=== PATIENT | female | born 2000 | race Caucasian/White ===

== ENCOUNTER 2021-07-21 08:46 | Outpatient (REF) | payer BC, SELFPAY ==
[2021-07-21 11:28] LABS: MANUAL DIFF FLAG NO
[2021-07-21 11:51] LABS: Basophils Percent Auto 0.4 % (0-2); Eosinophils Absolute Auto 0.1 X10*3/uL (0.0-0.4); Eosinophils Percent Auto 0.9 % (0-4); Hematocrit 41.7 % (37.0-47.0); Hemoglobin 13.9 g/dl (12.0-16.0); Imm Gran Abs Auto 0.02 X10*3/uL (0.00-0.03); Imm Gran Pct Auto 0.4 % (0.0-0.4); Lymphocytes Percent Auto 35.5 % (20-40); Mean Corpuscular HGB Conc 33.3 g/dl (31.0-35.0); Mean Corpuscular Hemoglobin 29.3 pg (27.0-33.0); Mean Corpuscular Volume 87.8 fL (80.0-98.0); Mean Platelet Volume 8.9 fL (9.4-12.3); Monocytes Absolute Auto 0.4 X10*3/uL (0.1-1.2); Monocytes Percent Auto 6.9 % (2-11); Neutrophils Absolute Auto 3.2 x10*3/uL (2.0-8.3); Neutrophils Percent Auto 55.9 % (45-73); Platelet Count 309 X10*3/uL (160-400); Red Blood Count 4.75 X10*6/uL (4.20-5.50); Red Cell Distribution Width 12.1 % (11.0-16.0); White Blood Count 5.7 X10*3/uL (4.8-10.8)
[2021-07-21 12:05] LABS: Alanine Aminotransferase 16 U/L (0-31); Albumin Level 4.9 g/dL (3.5-5.0); Alkaline Phosphatase 83 U/L (39-117); Anion Gap 11 (12-20); Aspartate Amino Transferase 15 U/L (5-31); Bilirubin Total 0.6 mg/dL (0.0-1.0); Blood Urea Nitrogen 8 mg/dL (9-16); Calcium 10.4 mg/dL (8.4-10.2); Carbon Dioxide 24 mmol/L (22-29); Chloride 108 mmol/L (96-108); Cholesterol 200 mg/dL; Estimated Glomerular Filt Rate > 60; Glucose Fasting 95 mg/dL (60-99); HDL Cholesterol 44 mg/dL; LDL Cholesterol Calculated 139 mg/dl; Potassium 4.1 mmol/L (3.3-5.1); Sodium 139 mmol/L (135-145); Total Protein 7.6 g/dL (6.5-8.0); Triglycerides 89 mg/dL
[2021-07-21 12:23] LABS: HBc Num1 0.07 S/CO (0.00-0.79); HBsAGNum1 0.28 S/CO (0.00-0.99); Hepatitis B Core Antibody Nonreactive (Nonreactive); Hepatitis B Surface Antigen Negative (Negative)
[2021-07-21 12:26] LABS: HBS Num1 1.19 mIU/mL (0-7.99); HIV AB/AG Nonreactive (Nonreactive); HIV Num 1 0.05 S/CO (0.00-0.99); ~HepC Num1 0.13 S/CO (0.00-0.79); ~Hepatitis B Surface Antibody NONREACTIVE (Nonreactive); ~Hepatitis C Antibody Nonreactive (Nonreactive)
[2021-07-21 12:30] LABS: TSH reflex Free T4 1.93 uIU/mL (0.32-4.0)
[2021-07-21 13:46] LABS: CT PCR NOT DETECTED (Not Detect.); NG PCR NOT DETECTED (Not Detect.)
[2021-07-22 08:22] LABS: Syphilis Screen Nonreactive (Nonreactive)
== END 2021-07-21 08:47 | disposition home or self-care (01) ==
LOC: HO.WFDLDS 08:46
PROVIDERS: Visit Provider Family Medicine
DX: Z00.00 Encounter for general adult medical examination without abnormal findings (principal); Z11.3 Encounter for screening for infections with a predominantly sexual mode of transmission; Z11.4 Encounter for screening for human immunodeficiency virus [HIV]
CPT/HCPCS: 80053; 80061; 84443; 85025; 86704; 86706; 86780; 86803; 87340; 87389; 87491; 87591

== ENCOUNTER 2021-12-02 11:00 | Outpatient (REF) | payer BC, SELFPAY ==
[2021-12-04 23:51] LABS: TS Negative Control Passed; TS Panel A 0; TS Panel B 1; TS Positive Control Passed; TSpotTB Negative (Negative)
== END 2021-12-02 11:01 | disposition home or self-care (01) ==
LOC: HO.WFDLDS 11:00
PROVIDERS: Visit Provider Family Medicine
DX: Z11.1 Encounter for screening for respiratory tuberculosis (principal)
CPT/HCPCS: 36415; 86481

== ENCOUNTER → 2022-02-22 09:04 | Outpatient (BNVA) | payer SELFPAY | PROVIDERS: PCP Family Medicine | DX: Z02.1 Encounter for pre-employment examination (principal) ==

== ENCOUNTER → 2022-03-06 08:24 | Outpatient (BNVA) | payer SELFPAY | PROVIDERS: PCP Family Medicine | DX: Z02.83 Encounter for blood-alcohol and blood-drug test (principal) ==

== ENCOUNTER 2022-05-26 09:49 | Outpatient (REF) | payer BC, SELFPAY ==
[2022-05-29 09:26] LABS: HBS Num1 > 1000.00 mIU/mL (0-7.99); ~Hepatitis B Surface Antibody REACTIVE (Nonreactive)
== END 2022-05-26 09:50 | disposition home or self-care (01) ==
LOC: HO.WFDLDS 09:49
PROVIDERS: Visit Provider Family Medicine
DX: Z01.84 Encounter for antibody response examination (principal)
CPT/HCPCS: 36415; 86706

== ENCOUNTER 2022-06-05 17:02 | Outpatient (REF) | payer BC, SELFPAY ==
--- NOTE | ~2022-06-05 | XR_ITS ---
EXAMINATION: XR HIP, RIGHT CLINICAL INFORMATION: Pain in right hip COMPARISON: None TECHNIQUE: AP pelvis with 2 views of the right hip. FINDINGS: Bones and soft tissues are normal. No fracture. Alignment is anatomic. Hip joint space is maintained. XR/XR hip RT w PEL1V IMPRESSION: No acute osseous abnormality of the right hip.
== END 2022-06-05 17:03 | disposition home or self-care (01) ==
LOC: HO.XRAY 17:02
PROVIDERS: PCP Family Medicine; Visit Provider Nurse Practitioner Family
DX: M25.551 Pain in right hip (principal)
CPT/HCPCS: 73502

== ENCOUNTER 2022-09-22 08:28 | Outpatient (REF) | payer BC, SELFPAY ==
[2022-09-22 11:51] LABS: Appearance Urine Clear; Color Urine Yellow; Glucose Urine UA Negative (Negative); Leukocyte Esterase Urine Negative (Negative); Nitrite Urine Negative (Negative); PH 7.5 (5.0-9.0); Specific Gravity - Urine <= 1.005 (1.005-1.025); Urine Blood Negative (Negative); Urine Ketones Negative (Negative); Urine Protein Negative (Neg-Trace)
[2022-09-22 12:25] LABS: Alanine Aminotransferase 64 U/L (0-31); Albumin Level 4.8 g/dL (3.5-5.0); Alkaline Phosphatase 80 U/L (39-117); Anion Gap 12 (12-20); Aspartate Amino Transferase 41 U/L (5-31); Bilirubin Total 0.7 mg/dL (0.0-1.0); Blood Urea Nitrogen 15 mg/dL (9-16); Calcium 9.9 mg/dL (8.4-10.2); Carbon Dioxide 27 mmol/L (22-29); Chloride 107 mmol/L (96-108); Cholesterol 200 mg/dL; Estimated Glomerular Filt Rate > 60; Glucose Fasting 81 mg/dL (60-99); HDL Cholesterol 54 mg/dL; LDL Cholesterol Calculated 133 mg/dl; Potassium 4.2 mmol/L (3.3-5.1); Sodium 142 mmol/L (135-145); Total Protein 7.2 g/dL (6.5-8.0); Triglycerides 65 mg/dL
[2022-09-22 12:27] LABS: TSH reflex Free T4 1.76 uIU/mL (0.32-4.0)
== END 2022-09-22 08:29 | disposition home or self-care (01) ==
LOC: HO.WFDLDS 08:28
PROVIDERS: Visit Provider Family Medicine
DX: Z00.00 Encounter for general adult medical examination without abnormal findings (principal)
CPT/HCPCS: 36415; 80053; 80061; 81003; 84443

== ENCOUNTER 2022-11-24 09:09 | Outpatient (REF) | payer BC, SELFPAY ==
[2022-11-24 12:47] LABS: Alanine Aminotransferase 30 U/L (0-31); Alkaline Phosphatase 76 U/L (39-117); Anion Gap 13 (12-20); Aspartate Amino Transferase 20 U/L (5-31); Blood Urea Nitrogen 12 mg/dL (9-16); Calcium 10.1 mg/dL (8.4-10.2); Carbon Dioxide 25 mmol/L (22-29); Chloride 105 mmol/L (96-108); Estimated Glomerular Filt Rate > 60; Gamma Glutamyl Transpeptidase 18 U/L (7-33); Glucose Random 84 mg/dL (60-115); Potassium 4.5 mmol/L (3.3-5.1); Sodium 138 mmol/L (135-145); Total Protein 7.5 g/dL (6.5-8.0)
[2022-11-24 12:53] LABS: HBS Num1 905.51 mIU/mL (0-7.99); HBc Num1 0.08 S/CO (0.00-0.79); HBsAGNum1 0.41 S/CO (0.00-0.99); Hepatitis B Core Antibody Nonreactive (Nonreactive); Hepatitis B Surface Antigen Negative (Negative); ~HepC Num1 0.13 S/CO (0.00-0.79); ~Hepatitis B Surface Antibody REACTIVE (Nonreactive); ~Hepatitis C Antibody Nonreactive (Nonreactive)
== END 2022-11-24 09:10 | disposition home or self-care (01) ==
LOC: HO.WFDLDS 09:09
PROVIDERS: Visit Provider Family Medicine
DX: R74.8 Abnormal levels of other serum enzymes (principal); Z11.3 Encounter for screening for infections with a predominantly sexual mode of transmission
CPT/HCPCS: 36415; 80053; 82977; 86704; 86706; 86803; 87340

== ENCOUNTER 2022-11-29 12:51 | Outpatient (REF) | payer BC, SELFPAY ==
[2022-11-29 13:59] LABS: MANUAL DIFF FLAG NO
[2022-11-29 14:27] LABS: Basophils Percent Auto 0.5 % (0-2); Eosinophils Absolute Auto 0.1 X10*3/uL (0.0-0.4); Eosinophils Percent Auto 0.8 % (0-4); Hematocrit 39.4 % (37.0-47.0); Hemoglobin 13.1 g/dl (12.0-16.0); Imm Gran Abs Auto 0.02 X10*3/uL (0.00-0.03); Imm Gran Pct Auto 0.3 % (0.0-0.4); Lymphocytes Absolute Auto 2.2 X10*3/uL (1.2-4.9); Lymphocytes Percent Auto 28.8 % (20-40); Mean Corpuscular HGB Conc 33.2 g/dl (31.0-35.0); Mean Corpuscular Hemoglobin 29.1 pg (27.0-33.0); Mean Corpuscular Volume 87.6 fL (80.0-98.0); Mean Platelet Volume 8.7 fL (9.4-12.3); Monocytes Absolute Auto 0.5 X10*3/uL (0.1-1.2); Monocytes Percent Auto 7.1 % (2-11); Neutrophils Absolute Auto 4.8 x10*3/uL (2.0-8.3); Neutrophils Percent Auto 62.5 % (45-73); Platelet Count 334 X10*3/uL (160-400); Red Cell Distribution Width 12.5 % (11.0-16.0); White Blood Count 7.6 X10*3/uL (4.8-10.8)
== END 2022-11-29 12:52 | disposition home or self-care (01) ==
LOC: HO.WFDLDS 12:51
PROVIDERS: Visit Provider Nurse Practitioner Family
DX: R42 Dizziness and giddiness (principal)
CPT/HCPCS: 36415; 85025

== ENCOUNTER → 2023-02-14 12:50 | Outpatient (REF) | payer BC, SELFPAY ==
--- NOTE | 2023-02-14 12:53 | HM_ITS ---
* Total monitoring time 2 days. * Underlying rhythm is sinus. Average ventricular rate 74/Min. Range 46 to 141/Min. * Very rare supraventricular and ventricular ectopy. * Lightheadedness, shakiness, shortness of breath in diary associated with sinus rhythm. MTDD
== END ==
LOC: HO.CARD 12:50
PROVIDERS: PCP Family Medicine; Visit Provider Family Medicine
DX: R55 Syncope and collapse (principal); R42 Dizziness and giddiness
CPT/HCPCS: 93225

== ENCOUNTER → 2023-02-14 12:53 | Outpatient (BNV) | payer BC, SELFPAY | PROVIDERS: PCP Family Medicine; Visit Provider Internal Medicine | DX: I47.1 Supraventricular tachycardia (principal) | CPT/HCPCS: 93227 ==

== ENCOUNTER 2023-02-23 10:24 | Outpatient (AMB) | payer BC, SELFPAY ==
--- NOTE | 2023-02-23 10:29 | MHC.PC.OV ---
Vital Signs 02/23/23 10:30 02/23/23 11:01 02/23/23 11:01 02/23/23 11:02 Height 5 ft 3 in Weight 130 lb BMI 23.0 BP 98/70 102/68 102/78 98/62 Blood Pressure Location Rt brachial Rt brachial Rt brachial Rt brachial Position Sitting Standing Sitting Supine Respiration 14 Pulse 96 100 86 81 Pulse Source Pulse Oximeter Pulse Oximeter Pulse Oximeter Pulse Oximeter Temp 98.9 F Temp Source Temporal Artery Scan Pulse Oximetry (%) 98 Oxygen Delivery Method Room Air Intake Visit Reasons: f/u syncope/dizziness Intake Note: Patient is following up for a previous syncope episode. Patient states she is concerned about her blood pressure being lower than usual and bilateral feet being tingly intermittently. The tingling worsens when patient is not moving- such as sitting, laying down and sleeping. 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 Required: No Accompanied by: Self / Same As Patient Allergies Seasonal Allergies Allergy (Mild, Verified 02/23/23 10:36) Unknown cats Allergy (Mild, Uncoded 01/26/23 08:58) itchy dogs Allergy (Mild, Uncoded 01/26/23 08:58) Unknown horses Allergy (Mild, Uncoded 01/26/23 08:58) Unknown tree pollen Allergy (Mild, Uncoded 01/26/23 08:58) seasonal allergies Tobacco use date assessed: 01/26/23 Dental Screening Dental Screen Date: 02/23/23 Did you have a dental visit in the last 12 months?: Yes Did you have a dental problem in the last 6 months where you did not have access to dental care?: No Was dental information given to patient?: Patient has dentist HPI f/u syncope/dizziness HPI Details 22 y/o female presents to f/u syncope/dizziness. Recent CBC was fine. She had scored high for anxiety so she had been given hydroxyzine. She reports this has helped a bit. She reports ongoing lightheadedness. She reports shortness of breath on exertion and notes that when she gets up in the morning she experiences tingling on her legs. She reports she had a holter monitor 02/14/23, which was normal. 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 Ed Edwards, Germaine Ingram, Olivier Prather and colleagues, with an educational fernando from [employer]. Review of Systems Const Denies chills, Denies fatigue, Denies fever(s), Denies headache(s) and Denies weakness ENT Denies dizziness and Denies headache(s) Card Denies chest pain, Denies lightheadedness, Denies dyspnea and Denies other (Palpitations) Resp Denies cough, Denies dyspnea, Denies wheezing and Denies other ( shortness of breath) Musc Denies numbness and Denies tingling Neuro Denies dizziness, Denies headache(s), Denies numbness, Denies tingling, Denies paresthesias and Denies weakness Psych Denies anxiety and Denies depression Endo Denies fatigue Aller/Immun Denies wheezing Physical exam (Primary Care) Vital Signs: Last Vital Signs Temp 98.9 F 02/23/23 10:30 Pulse 96 02/23/23 10:30 Resp 14 02/23/23 10:30 BP 98/70 02/23/23 10:30 Pulse Ox 98 02/23/23 10:30 Oxygen Delivery Method Room Air 02/23/23 10:30 BMI result Body Mass Index 23.0 Tobacco/Smoking Status: Tobacco use Status Tobacco use date assessed 01/26/23 02/23/23 10:37 Patient Tobacco Use Status Never used Tobacco 02/23/23 10:37 Tobacco use type 06/21/21 16:42 e-Cigarette/Vaping Use Never Used 02/23/23 10:37 Thrive Assessment: Date of Thrive Assessment Date Thrive assessed 09/18/22 02/23/23 10:37 Const General: no acute distress and well developed Nutritional Appearance: well nourished Orientation/consciousness: patient oriented x3 HENMT Head: Yes normocephalic and Yes atraumatic Eyes General: appearance normal, both eyes and all related structures Pupils: Equal, round and reactive pupils present EOM: EOMs intact bilaterally Resp Effort & Inspection: normal respiratory effort Auscultation: clear to auscultation bilaterally Cardio Rate: regular rate Rhythm: regular rhythm Heart sounds: S1 normal heart sound present, S2 normal heart sound present, no gallops, no murmurs and no rubs Neuro General: patient oriented x3 and gait normal Cranial nerves: Yes Equal, round and reactive pupils present Psych Affect: normal affect Assessment and Plan Assessment & Plan (1) Syncope: Code(s): R55 - Syncope and collapse Plan: Prior syncopal event and still has presyncopal symptoms EKG was normal as was a Holter monitor test Blood pressure has been fairly low and today 98/70 Orthostatic blood pressures and heart rates were negative for orthostasis however. As discussed in prior visit, this appears to be vasovagal response associated with standing and attention, watching medical procedures such as lumbar puncture and micturition defecation. Reassured patient though she is still concerned. Will refer to Cardiology Advised she continue good hydration and salt/sodium intake to avoid any contributing hypotension She will go to the ED or call/return to office if symptoms worsen or she has any new concerning symptoms. (2) Dizziness: Code(s): R42 - Dizziness and giddiness Plan: As above (3) Screening for tuberculosis: Code(s): Z11.1 - Encounter for screening for respiratory tuberculosis Plan: Patient needs screening for tuberculosis for school T spot ordered Orders: Orders T Spot TB Today Z11.1 - Encounter for screening for respiratory tuberculosis Referrals Cardiology Referral R55 - Syncope and collapse Coding Level of Care Code Est Pt Level 3 (83004) Diagnoses Syncope R55 Dizziness R42 Screening for tuberculosis Z11.1
[2023-02-23 10:30] VITALS: BP 98/70; PULSE 96; RESP 14; TEMP 37.2; O2SAT 98; BMI 23.0
[2023-02-23 11:01] VITALS: BP 102/68; BP 102/78; PULSE 100; PULSE 86
[2023-02-23 11:02] VITALS: BP 98/62; PULSE 81
== END 2023-02-23 11:27 | disposition home or self-care (01) ==
PROVIDERS: PCP Family Medicine; Visit Provider Family Medicine
DX: R55 Syncope and collapse (principal); R42 Dizziness and giddiness; Z11.1 Encounter for screening for respiratory tuberculosis
CPT/HCPCS: 99213

== ENCOUNTER 2023-02-23 11:17 | Outpatient (REF) | payer BC, SELFPAY ==
[2023-02-26 15:34] LABS: TS Negative Control Passed; TS Panel A 0; TS Panel B 4; TS Positive Control Passed; TSpotTB Negative (Negative)
== END 2023-02-23 11:18 | disposition home or self-care (01) ==
LOC: HO.WFDLDS 11:17
PROVIDERS: Visit Provider Family Medicine
DX: Z11.1 Encounter for screening for respiratory tuberculosis (principal)
CPT/HCPCS: 36415; 86481

== ENCOUNTER 2023-09-03 09:09 | Outpatient (AMB) | payer BC, SELFPAY ==
--- NOTE | 2023-09-03 09:30 | MHC.OFFVIS ---
Intake Vital Signs 09/03/23 09:31 09/03/23 09:47 09/03/23 09:49 Height 5 ft 3 in Weight 132 lb 4.438 oz BMI 23.4 BP 130/74 123/77 138/73 Blood Pressure Location Lt brachial Lt brachial Lt brachial Position Supine Sitting Standing Pulse 97 105 H 113 H Intake Visit Reasons: NPV/Syncope and collapse/T. Mary Intake Note: New patient dx syncope feeling better still has some dizziness when doing stairs Curriculum Developer Required: No Allergies Seasonal Allergies Allergy (Mild, Verified 02/23/23 10:36) Unknown cats Allergy (Mild, Uncoded 01/26/23 08:58) itchy dogs Allergy (Mild, Uncoded 01/26/23 08:58) Unknown horses Allergy (Mild, Uncoded 01/26/23 08:58) Unknown tree pollen Allergy (Mild, Uncoded 01/26/23 08:58) seasonal allergies Medication List - Last Reconciled 09/03/23 by Asif Grimes MD albuterol sulfate 90 mcg/actuation 0 mcg inhalation fexofenadine (Wendie Allergy) 180 mg PO DAILY fluticasone propionate 100 mcg/actuation (Flovent Diskus) 1 inh inhalation BID hydroxyzine HCl 25 mg PO BID PRN 30 days triamcinolone acetonide (Nasacort) 2 sprays intranasal DAILY HPI HPI Comments History of Present Illness Details Thank you for referring Nolvia in cardiology consultation today for evaluation for syncope. 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 Patient said in January she had a syncopal episode while she was in turning in the operating room. There was nothing going on, she was standing and she suddenly felt lightheaded wobbly in her legs and then had doc vision and then she passed out. She was told that she was very pale. She was in the supine position and the associated staff at that time raised her legs and she felt better. She subsequently was brought to the break room and was given orange juice and she started feeling better. She did feel lightheaded for about half an hour after that. However since then she continues to have symptoms of orthostatic lightheadedness and feels wobbly in her legs and usually sits down before she has any fainting episode. During her syncopal episode she had also felt extremely warm. She has not had any full syncopal episodes since then. She had a Holter monitor at that time which was within normal limits. Since then she has been very anxious about these symptoms and is concerned and wants further evaluation. She also says that she has normally a very active person needs to play soccer for the school and more recently in last 2 years she has been getting increasing exertional shortness of breath climbing a flight of stairs. She says she had COVID in 2019 and then again in 2020 which was much more severe. Since then she has developed some allergy issues as well as exertional shortness of breath. No other cardiac workup has been done. No family history. [facility] Family History Father No problems noted. Mother No problems noted. 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 [employer] Current occupational exposures/hazards: No Cognitive needs: No Hearing needs: No Vision needs: No Review of Systems Const Denies chills, Denies daytime sleepiness, Denies fatigue, Denies fever(s), Denies frequent falls, Denies poor appetite, Denies snoring, Denies stops breathing during sleep, Denies weakness, Denies weight gain and Denies weight loss Eyes Denies loss of vision ENT Denies dizziness and Denies hearing loss Card Denies chest pain, Denies claudication, Denies leg edema, Denies lightheadedness, Denies palpitations, Denies dyspnea, Denies dyspnea on exertion and Denies orthopnea Resp Denies cough, Denies excessive phlegm production, Denies dyspnea, Denies dyspnea on exertion, Denies snoring and Denies wheezing GI Denies abdominal pain, Denies hematochezia, Denies change in bowel habits, Denies nausea and Denies vomiting Denies urinary frequency and Denies dysuria Musc Denies arthralgias, Denies muscle weakness, Denies numbness and Denies other (frequent falls) Skin/Breast Denies nail changes and Denies rash Neuro Denies Abnormal speech present, Denies dizziness, Denies frequent falls, Denies loss of vision, Denies memory loss, Denies numbness and Denies weakness Psych Denies depression and Denies memory loss Endo Denies fatigue and Denies palpitations Nilesh/Lymph Reports easy bruising and Reports other (anemia) Aller/Immun Denies wheezing Physical Exam Vital Signs: Last Vital Signs Pulse 113 H 09/03/23 09:49 BP 138/73 09/03/23 09:49 BMI result Body Mass Index 23.4 Const General: cooperative, comfortable, no acute distress, well developed, alert, awake, Physically active and anxious Nutritional Appearance: well nourished and thin Orientation/consciousness: patient oriented x3 Limitations: no limitations HEENT Head: Yes normocephalic and Yes atraumatic Neck Neck: Yes trachea midline, Yes supple and Yes no JVD Resp Effort & Inspection: normal respiratory effort Auscultation: clear to auscultation bilaterally Cardio Jugular venous distension: no JVD Palpation: normal PMI Rate: regular rate Rhythm: regular rhythm Heart sounds: S1 normal heart sound present, S2 normal heart sound present, no click, no gallops and no murmurs GI Percussion: Yes normal to percussion Skin General skin exam: no rashes or lesions noted Neuro General: patient oriented x3 and no focal motor deficits Speech: No Abnormal speech present Extrem General: Yes no clubbing, cyanosis or edema Psych Appearance: grossly normal Affect: Anxious affect present Office Procedures EKG Details: EKG shows normal sinus rhythm with normal EKG at 100 beats per minute with normal axis and normal intervals [id number], Complete Assessment & Plan Assessment & Plan (1) Syncope: Code(s): R55 - Syncope and collapse Plan: Syncopal episode in January and since then she continues to have symptoms of lightheadedness which she mitigate her syncopal episodes by sitting down right away. She understands the pathophysiology of syncope. To possible mechanisms, could be postural orthostatic tachycardia syndrome related to autonomic dysfunction and/or vasovagal syncope. On today's exam there is some evidence of orthostatic tachycardia although this could be also driven by her anxious state. At this time I have advised her to continue to monitor for blood pressure and heart rate with her smart watch when she has these episodes. Advised to monitor and maintain a record of her blood pressure. Advised to increase hydration more liberally and also add salt intake such as liquid IV solution to prevent these episodes. Mechanism of both POTS as well as vasovagal syncope were discussed. Given her symptoms of exertional shortness of breath would like to evaluate for cardiac structure and function. Will obtain an echocardiogram. Will also suggest a head-up tilt-table test to further guide therapy for her symptoms. We discussed about orthostatic precautions which she understands well. Will follow with her in 4 weeks time Coding Level of Care Code New Pt Level 4 (15430) Diagnoses Syncope R55 CPT Codes EKG - CPT: 39545-[id number], Complete ([id number])
[2023-09-03 09:31] VITALS: BP 130/74; PULSE 97; BMI 23.4
[2023-09-03 09:47] VITALS: BP 123/77; PULSE 105
[2023-09-03 09:49] VITALS: BP 138/73; PULSE 113
== END 2023-09-03 10:12 | disposition home or self-care (01) ==
PROVIDERS: PCP Family Medicine; Visit Provider Internal Medicine Cardiovascular Disease
DX: R55 Syncope and collapse (principal)
CPT/HCPCS: 93010; 99204

== ENCOUNTER → 2023-09-03 09:09 | Outpatient (BNVA) | payer BC, SELFPAY | PROVIDERS: PCP Family Medicine; Visit Provider Internal Medicine Cardiovascular Disease | DX: R55 Syncope and collapse (principal) | CPT/HCPCS: 93005 ==

== ENCOUNTER 2023-09-04 10:26 | Outpatient (AMB) | payer BC, SELFPAY ==
--- NOTE | 2023-09-04 10:31 | AM.OFFWIN_ITS ---
Intake Vital Signs 09/04/23 10:34 Height 5 ft 3 in Weight 136 lb BMI 24.1 BP 90/70 Blood Pressure Location Rt brachial Position Sitting Pulse 114 H Pulse Source Pulse Oximeter Pulse Oximetry (%) 98 Oxygen Delivery Method Room Air Intake Visit Reasons: congestion Intake Note: Patient is here today for congestion, fever 102 this morning, SOB, post nasal drip, coughing, chills, body aches, sore throats and sinus pressure. Symptoms started 09/01/23 and has gotten worse with time. OTc did not help. Home Covid test neg. 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 Horizontal: Not Required per policy Accompanied by: Self / Same As Patient Allergies Seasonal Allergies Allergy (Mild, Verified 09/04/23 10:50) Unknown cats Allergy (Mild, Uncoded 09/04/23 10:34) itchy dogs Allergy (Mild, Uncoded 09/04/23 10:34) Unknown horses Allergy (Mild, Uncoded 09/04/23 10:34) Unknown tree pollen Allergy (Mild, Uncoded 09/04/23 10:34) seasonal allergies Medication List - Last Reconciled 09/04/23 by Disha Clay, [facility] albuterol sulfate 90 mcg/actuation 0 mcg inhalation fexofenadine (Wendie Allergy) 180 mg PO DAILY fluticasone propionate 100 mcg/actuation (Flovent Diskus) 1 inh inhalation BID triamcinolone acetonide (Nasacort) 2 sprays intranasal DAILY Do you need a note to return to daycare/school/sports/work: Yes HPI HPI Comments History of Present Illness Details Flu like sx started Sunday Worse since onset fever, chills, scratchy throat, coughing Home COVID test negative Sick exposures at work and school UTD on vaccines Using OTC cold and flu decongestant with short lived relief PFSH Family History Father No problems noted. Mother No problems noted. 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 [employer] Current occupational exposures/hazards: No Cognitive needs: No Hearing needs: No Vision needs: No Review of Systems Const All systems reviewed & are unremarkable except as noted in HPI and below Physical Exam Vital Signs: Last Vital Signs Pulse 114 H 09/04/23 10:34 BP 90/70 09/04/23 10:34 Pulse Ox 98 09/04/23 10:34 Oxygen Delivery Method Room Air 09/04/23 10:34 BMI result Body Mass Index 24.1 Const Other: Mildly ill-appearing but in no acute distress TM intact bilat, congestion noted and left TM without erythema Nares with clear discharge bilat, polyp noted on right side, turbinates erythematous and edematous bilat. No sinus tenderness with palpation Pharynx clear, shotty AC adenopathy bilat Tachycardic Lung sounds clear to auscultation bilat Assessment & Plan Assessment & Plan (1) Flu-like symptoms: Code(s): R68.89 - Other general symptoms and signs Plan: . Plan Symptoms appear to be flu. Viral swab obtained today and confirm Flu A. Out of work and school note given with return to work on to 09/10/2023. She should follow the current CDC guidelines. [id number] medications to help with symptom relief. Supportive care. Total time spent caring for the patient today was 30 minutes. This includes time spent before the visit reviewing the chart, time spent during the visit, and time spent after the visit on documentation This note is constructed using voice recognition software. While every effort has been made to ensure accuracy in administrative associate, still errors may have been included Sometimes, these errors may affect the content or meaning of the given sentence . Orders: Orders SARS-CoV2/FLU/RSV Today R68.89 - Other general symptoms and signs Medications: New benzonatate 100 mg PO TID 10 days PRN 30 caps 1RF cough oseltamivir (Tamiflu) 75 mg PO Q12H 10 caps 0RF 5 days Patient Instructions: Influenza (flu) is an infection in the lungs and breathing passages. It is caused by the influenza virus. There are different strains, or types, of the flu virus from year to year. Unlike the common cold, the flu comes on suddenly and the symptoms can be more severe. These symptoms include a cough, congestion, fever, chills, fatigue, aches, and pains. These symptoms may last for a few weeks. Although the flu can make you feel very sick, it usually doesn't cause serious health problems. Home treatment is usually all you need for flu symptoms. But your doctor may prescribe antiviral medicine to prevent other health problems, such as pneumonia, from developing. The risk of other health problems from the flu is highest for young children (under 5), older adults (over 65), women, people with long-term health conditions, people who live in nursing homes or long-term care centres, and indigenous peoples. How can you care for yourself at home? Get plenty of rest. Drink plenty of fluids. If you have to limit fluids because of a health problem, talk with your doctor before you increase the amount of fluids you drink. Take an avgv-akc-xqnqgsc pain medicine if needed, such as acetaminophen (Tylenol), ibuprofen (Advil, Motrin), or naproxen (Aleve), to relieve fever, headache, and muscle aches. Read and follow all instructions on the label. No one younger than 18 should take aspirin. It has been linked to Edgar syndrome, a serious illness. Take any prescribed medicine exactly as directed. Do not smoke. Smoking can make the flu worse. If you need help quitting, talk to your doctor about stop-smoking programs and medicines. These can increase your chances of quitting for good. If the skin around your nose and lips becomes sore, put some petroleum jelly (such as Vaseline) on the area. To ease coughing: Suck on cough drops or plain, hard candy. Try an kazc-vxc-vnwwmrx cough or cold medicine. Read and follow all instructions on the label. Raise your head at night with an extra pillow. This may help you rest if coughing keeps you awake. To avoid spreading the flu Wash your hands regularly, and keep your hands away from your face. Stay home from school, work, and other public places until you are feeling better and your fever has been gone for at least 24 hours. The fever needs to have gone away on its own without the help of medicine. Ask people living with you to talk to their doctors about preventing the flu. They may get antiviral medicine to keep from getting the flu from you. To prevent the flu in the future, get the flu vaccine every fall. Encourage people living with you to get the vaccine. Cover your mouth when you cough or sneeze. If you can, cough or sneeze into the bend of your elbow, not your hands. When should you call for help? Call 911 anytime you think you may need emergency care. For example, call if: You have severe trouble breathing. You have a seizure. Call your doctor or nurse advice line now or seek immediate medical care if: You have trouble breathing. You have a fever with a stiff neck or a severe headache. You have pain or pressure in your chest or belly. You have a fever or cough that returns after getting better. You feel very sleepy, dizzy, or confused. You are not urinating. You have severe muscle pain. You have severe weakness, or you are unsteady. You have medical conditions that are getting worse Watch closely for changes in your health, and be sure to contact your doctor or nurse advice line if: You do not get better as expected. You are having a problem with your medicine. Coding Level of Care Code Est Pt Level 4 (79152) Diagnoses Flu-like symptoms R68.89
[2023-09-04 10:34] VITALS: BP 90/70; PULSE 114; O2SAT 98; BMI 24.1
== END 2023-09-04 11:04 | disposition home or self-care (01) ==
PROVIDERS: PCP Family Medicine; Visit Provider Nurse Practitioner Family
DX: R68.89 Other general symptoms and signs (principal)
CPT/HCPCS: 99214

== ENCOUNTER 2023-09-04 14:47 | Outpatient (REF) | payer BC, SELFPAY ==
[2023-09-04 15:36] LABS: Influenza A PCR POSITIVE (Negative); Influenza B PCR NEGATIVE (Negative); Resp Syncy Virus RNA Qual PCR NEGATIVE (Negative); SARS COV2 PCR INHOUSE NEGATIVE (Negative)
== END 2023-09-04 14:48 | disposition home or self-care (01) ==
LOC: HO.LNP 14:47
PROVIDERS: Visit Provider Nurse Practitioner Family
DX: Z11.52 Encounter for screening for COVID-19 (principal); Z20.822 Contact with and (suspected) exposure to COVID-19; R68.89 Other general symptoms and signs
CPT/HCPCS: 0241U

== ENCOUNTER → 2023-10-08 08:03 | Outpatient (REF) | payer BC, SELFPAY ==
--- NOTE | 2023-10-08 08:05 | CA_ITS ---
Transthoracic Echocardiogram Patient (Last, First, Middle): Nolvia Parmar, Gender: Female Date of : 2000 Age: 23 Procedure Date: 10/08/2023 Procedure Type: Transthoracic Echocardiogram Location: OP Height: 162.56 cm Weight: 61.24 kg BSA: 1.66 m2 Heart Rate: bpm BP: 110 / 68 mmHg Electrical Discharge Machine Operator: TATY Referring MD: Asif Grimes MD Cook Apprentice: Asif Grimes MD Symptoms: R55 - Syncope and collapse Study Quality: Adequate with contrast ECG Rhythm: Sinus Conclusions: - 1. Normal LV systolic function with LVEF of 65-70% with normal diastolic filling pattern 2. Normal cardiac valvular Doppler 3. No gross pericardial effusion Findings Procedure Information Contrast agent, definity, is being given per protocol without apparent complications. Left Ventricle Normal left ventricular size, thickness, and systolic function. The visually estimated ejection fraction is between 65-70%. Spectral Doppler is indicative of a normal filling pattern. Right Ventricle Normal right ventricular cavity size and systolic function. Atria Both atria are normal in size. Interatrial shunt cannot be excluded. Aortic Valve Normal aortic valve structure and function. There is no aortic valve stenosis. There is no aortic valve regurgitation. Mitral Valve Normal mitral valve structure and function. There is no mitral valve regurgitation. There is no mitral valve stenosis. Pulmonic Valve The pulmonic valve is likely normal. Tricuspid Valve Normal tricuspid valve structure. There is trace tricuspid valve regurgitation. Great Vessels All visible segments of the aorta are normal in size. The pulmonary artery was not well visualized. Venous The inferior vena cava is normal in size and collapses greater than 50% with inspiration. Pericardium/Pleural There is no evidence of pericardial effusion. Prior Study Comparison No prior study available for comparison. Measurements 2D Linear Measurements IVSd: 0.63 0.6-0.9/0.6-1.0 cm LVIDd: 4.37 3.9-5.3/4.2-5.9 cm LVIDd Index: 2.63 2.4-3.2/2.2-3.1 cm/m2 LVIDs: 2.93 2.0-3.6 cm LVPWd: 0.83 0.7-1.1 cm LA Diam: 2.50 2.7-3.8/3.0-4.0 cm LAIDs Index: 1.51 1.5-2.3 cm/m2 LV Mass: 118.65 67-162/88-224 g LV Mass Index: 71.48 43-95/49-115 g/m2 LVOT Diam: 1.80 3.0+(-)1.3 cm 2D Systolic Function EF 4C: 67.40 >55% EF 2C: 67.60 >55% EF BiP: 67.10 >55% Mitral Valve MV Pk E: 0.99 MV PK A: 0.62 MV Decel Time: 197.00 E/A: 1.60 E'Lateral: 16.50 E'Medial: 11.00 E/E' Med: 9.00 E/E' Lat: 6.00 PHT: 58.00 MVA PHT: 3.79 Decel [place]: 5.01 Aortic Valve AoV Pk Kaden: 1.18 AoV Mn Kaden: 0.84 AoV VTI: 0.28 AoV Pk Grad: 6.00 Aov Mn Grad: 3.00 JASON Cont.VTI: 1.88 LVOT LVOT Pk Kaden: 0.88 LVOT Mn Kaden: 0.66 LVOT VTI: 0.21 LVOT Pk Grad: 3.00 LVOT Mn Grad: 2.00 LVOT Diam: 1.80 LVOT Area: 2.54 Diastolic Function MV Pk E: 0.99 MV Pk A: 0.62 E/A: 1.60 E'Medial: 11.00 E/E' Med: 9.00 E' Laterial: 16.50 E/E' Lat: 6.00 Right Ventricle TAPSE (mm): 23.00 TVS' Kaden: 12.20 Tricuspid Valve RA Press: 3.00 Great Vessels Aorta Sinus of Valsalva: 2.59 2.0-3.[address] [place]: 1.58 1.7-3.4 cm Ao Asc: 2.10 2.1-3.4 cm Ao Arch: 2.40 Updated in Other Vendor System with Status of Final Asif Grimes MD electronically signed on 10/08/2023 1:04:27 PM with status of Final
== END ==
LOC: HO.CARD 08:03
PROVIDERS: PCP Family Medicine; Visit Provider Internal Medicine Cardiovascular Disease
DX: R55 Syncope and collapse (principal); R06.02 Shortness of breath
CPT/HCPCS: 93306; Q9957

== ENCOUNTER → 2023-10-08 08:05 | Outpatient (BNV) | payer BC, SELFPAY | PROVIDERS: PCP Family Medicine; Visit Provider Internal Medicine Cardiovascular Disease | DX: R06.02 Shortness of breath (principal); R55 Syncope and collapse | CPT/HCPCS: 93306 ==

== ENCOUNTER 2023-10-17 07:59 | Outpatient (AMB) | payer BC, SELFPAY ==
--- NOTE | 2023-10-17 08:02 | MHC.PC.OV ---
Vital Signs 10/17/23 08:08 Height 5 ft 3 in Weight 137 lb BMI 24.3 BP 102/54 L Blood Pressure Location Rt brachial Position Sitting Respiration 12 Pulse 88 Pulse Source Pulse Oximeter Pulse Oximetry (%) 98 Oxygen Delivery Method Room Air Intake Visit Reasons: CPE Intake Note: Patient is here for a physical. Patient is requesting a copy of her immunizations and todays physical for school and work. Ibm Bpm Developer Required: No Accompanied by: Self / Same As Patient Allergies Seasonal Allergies Allergy (Mild, Verified 10/17/23 08:29) Unknown codeine Adverse Reaction (Mild, Verified 10/17/23 08:30) Dizziness cats Allergy (Mild, Uncoded 10/17/23 08:12) itchy dogs Allergy (Mild, Uncoded 10/17/23 08:12) Unknown horses Allergy (Mild, Uncoded 10/17/23 08:12) Unknown tree pollen Allergy (Mild, Uncoded 10/17/23 08:12) seasonal allergies Medication List - Last Reconciled 10/17/23 by Disha Clay, [facility]- albuterol sulfate 90 mcg/actuation 0 mcg inhalation fexofenadine (Wendie Allergy) 180 mg PO DAILY fluticasone propionate 100 mcg/actuation (Flovent Diskus) 1 inh inhalation BID Tobacco use date assessed: 10/17/23 Dental Screening Dental Screen Date: 10/17/23 Did you have a dental visit in the last 12 months?: Yes Did you have a dental problem in the last 6 months where you did not have access to dental care?: No Was dental information given to patient?: Patient has dentist HPI HPI Comments History of Present Illness Details 23-year-old female with MDD, generalized anxiety disorder, allergic rhinitis w/ recurrent sinusitis, eczema dermatitis, constipation Social: 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 [place] at [employer] [place] Surgery wisdom teeth removal Family history: Maternal grandmother Graves disease, Maternal Grandfather: HLD, maternal aunt thyroid disease, mother with hypertension, paternal grandfather colon cancer + parkinsons disease siblings: 1 younger, alive and well. Specialists Cardiology Allergy and immunology [facility] maintenance Echocardiogram 10/08/2023 within normal limits Holter within normal limits Labs 11/29/2022 normal CBC, labs 11/24/2022 normal CMP, normal TSH and lipid panel 08/2022 Vaccine UTD PAP 2022 WNL Eyes: overdue for exam. Wears glasses for distance. Dental: routine f/u, no issues. Skin: warts on fingers, resolving. No other issues. Eczema only during winter. Used cream in past. Here today for CPE. Cards - currently followed for syncope. Tilt table ordered, scheduled November 2023 w/ Cards f/u to discuss. Feeling dizzy and off balanced, seldom. More so at work and when pushing things or going up and down the stairs. Feels out of breath. Sits down and then feels fine. Allergy/Immune - manages asthma & allergies. Taking meds as directed. Inhalers effective. Getting allergy shot q week. Recurrent sinusitis is resolved w/ treatment. Constitutional: Denies fever. Skin: Denies rash. Eye: Denies eye pain. ENMT: Denies sore throat and nasal congestion. Respiratory: Denies shortness of breath and cough. Gastrointestinal: Denies nausea, vomiting or abdominal pain. Cardiovascular: Denies chest pain Genitourinary: Denies dysuria. Musculoskeletal: Denies back pain and extremity pain. Neurologic: Denies headaches, confusion, and weakness. Psychiatric: Denies suicidal thoughts and substance abuse. Allergy/ Immunologic: Denies impaired immunity. General: Well developed, well nourished, in no acute distress. Appears stated age. Head: Normocephalic, atraumatic. Eyes: Pupils are equal, round and reactive to light and accommodation. Conjunctivae are clear. Vision grossly normal. Ears: TMs clear AU, EACS WNL Nose: Patent, without discharge. Mouth: There are no ulcers or lesions noted. No inflammation, no post nasal drip, no plaques nor exudates. Neck: Supple, no adenopathy or thyromegaly. Lungs: Clear to auscultation bilaterally. No rales, rhonchi or wheeze noted. Good air flow in all serrano. Heart: Regular rate and rhythm. No murmurs, click, rubs or gallops are noted. Abdomen: Bowel sounds present in all quadrants. The abdomen is soft, nontender, with no masses or organomegaly noted. No hernias are noted. Musculoskeletal: Joints are nontender, without swelling, redness, or effusions. Range of motion is observed to be normal. Pulses: Peripheral pulses are equal and palpable bilaterally. Extremities: No clubbing, cyanosis nor edema is noted. Neurologic: Gait and station normal. Cranial Nerves 2-12 intact. Motor strength grossly symmetrical and intact. No sensory loss. Balance normal. Skin: No rashes, ulcers, or lesions noted. Turgor is good. Skin color is good. Hair and nails are without abnormalities. Psych: Normal eye contact, affect and mood appropriate, and normal interactions. Patient is alert and appropriate to context. [facility], [facility] Medical History (Updated 10/17/23 @ 08:59 by Disha Clay, [facility]) Numbness and tingling of lower extremity Elevated liver enzymes Seasonal allergies Surgical History (Updated 10/17/23 @ 08:17 by Richelle López CMA) [place] teeth extracted Family History (Updated 10/17/23 @ 08:17 by Richelle López CMA) Father No problems noted. Mother No problems noted. Maternal Grandfather CAD (coronary artery disease) Social History (Updated 10/17/23 @ 08:19 by Richelle López CMA) Household Members: Family Both parents involved: Yes Caregiver staying overnight: No Housing: House Are you a primary critical care cns to a significant other at home: No Do you presently have visiting nurse or other home services: No 75 years or older and lives alone: No Alcohol intake: current Alcohol intake frequency: holidays/special occasions only Patient Tobacco Use Status: Never used Tobacco e-Cigarette/Vaping Use: Never Used service: No Current occupational status: employed 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 1. Little interest or pleasure in doing things: not at all 2. Feeling down, depressed, or hopeless: not at all 3. Trouble falling or staying asleep, or sleeping too much: not at all 4. Feeling tired or having little energy: several days 5. Poor appetite or overeating: several days 6. Feeling bad about yourself - or that you are a failure or have let yourself or your family down: not at all 7. Trouble concentrating on things, such as reading the newspaper or watching television: not at all 8. Moving or speaking so slowly that other people could have noticed. Or the opposite - being so fidgety or restless that you have been moving around a lot more than usual: not at all 9. Thoughts that you would be better off or of hurting yourself in some way: not at all Total score: 2 Depression Screening Interpretation: Negative Depression Screening Done: Yes 95011 - PHQ-9 Billing: Yes Source: Developed by Drs. Ed Edwards, Germaine Ingram, Olivier Prather and colleagues, with an educational fernando from [employer]. Thrive Questionnaire Date Thrive assessed: 10/17/23 I am a: Patient What is your living situation today?: I have a steady place to live Within the past 12 months, did the food you bought not last and you didn't have the money to get more?: Never true Within the past 12 months, did you worry whether your food would run out before you got money to buy more?: Never true Do you have trouble paying for medicines?: No Do you have trouble getting transportation to medical appointments?: No Do you have trouble paying your heating and electricity bill?: No Do you have trouble taking care of your child, family member or friend?: No Do you have trouble with day-to-day activities such as bathing, preparing meals, shopping, managing finances, etc.?: No Are you currently unemployed and looking for a job?: No Are you interested in more education?: No Please select the resources that you would like help with: None Currently or been in a relationship where the following occur: no concerns reported THRIVE Score: 0 AUDIT C Alcohol Use Questionnaire (AUDIT-C) 1. How often do you have a drink containing alcohol?: Never 3. How often do you have six or more drinks on one occasion?: Never Total Score: 0 ELOISE-7 AMB Questionnaire ELOISE-7 Date ELOISE - 7 assessed: 10/17/23 Feeling nervous, anxious, or on edge: 1 = Several days Not being able to stop or control worryin = Not at all Worrying too much about different things: 1 = Several days Trouble relaxin = Not at all Being so restless that it is hard to sit still: 0 = Not at all Becoming easily annoyed or irritable: 0 = Not at all Feeling afraid as if something awful might happen: 0 = Not at all Total ELOISE-7 score (0-4 normal; 5-9 mild; 10-14 moderate; 15-21 severe): 2 Source: Developed by Drs. Ed Edwards, Germaine Ingram, Olivier Prather and colleagues, with an educational fernando from [employer]. ELOISE-7 Assessment Billing ELOISE-7 Assessment Tool: ELOISE-7 Assessment 97129 Physical exam (Primary Care) Vital Signs: Last Vital Signs Pulse 88 10/17/23 08:08 Resp 12 10/17/23 08:08 BP 102/54 L 10/17/23 08:08 Pulse Ox 98 10/17/23 08:08 Oxygen Delivery Method Room Air 10/17/23 08:08 BMI result Body Mass Index 24.3 Tobacco/Smoking Status: Tobacco use Status Tobacco use date assessed 10/17/23 10/17/23 08:16 Patient Tobacco Use Status Never used Tobacco 10/17/23 08:19 Tobacco use type 06/21/21 16:42 e-Cigarette/Vaping Use Never Used 10/17/23 08:19 Depression Screening Interpretation: Negative Thrive Assessment: Date of Thrive Assessment Date Thrive assessed 09/18/22 10/17/23 08:04 Currently or been in a relationship where the following occur: no concerns reported Assessment and Plan Assessment & Plan (1) Adult general medical exam: Code(s): Z00.00 - Encounter for general adult medical examination without abnormal findings (2) MDD (major depressive disorder), recurrent episode: Comment: In full remission. On not on any medications. Code(s): F33.9 - Major depressive disorder, recurrent, unspecified Qualifiers: Major depression episode severity: mild Qualified Code(s): F33.0 - Major depressive disorder, recurrent, mild (3) ELOISE (generalized anxiety disorder): Comment: In full remission. On not on any medications. Code(s): F41.1 - Generalized anxiety disorder (4) Allergic rhinitis: Comment: Managed by Allergy and immunology with weekly allergy shots. Also on Wendie. Code(s): J30.9 - Allergic rhinitis, unspecified Qualifiers: Allergic rhinitis trigger: animal hair and dander Qualified Code(s): J30.81 - Allergic rhinitis due to animal (cat) (dog) hair and dander (5) Syncope: Comment: Echocardiogram 10/08/2023 within normal limits Holter within normal limits Followed by [facility]. Scheduled for a tilt-table test November of 2023 with office visit to follow up to discuss findings. Code(s): R55 - Syncope and collapse Qualifiers: Syncope type: unspecified Qualified Code(s): R55 - Syncope and collapse (6) Eczema: Comment: Controlled with intermittent use of topical steroid cream use sparingly. Code(s): L30.9 - Dermatitis, unspecified Qualifiers: Eczema type: flexural Qualified Code(s): L20.82 - Flexural eczema (7) Elevated LDL cholesterol level: Comment: 09/22/2022 lipid profile shows triglycerides 65, total cholesterol 200, LDL 133, HDL 54 Code(s): E78.00 - Pure hypercholesterolemia, unspecified (8) Mild intermittent asthma in adult without complication: Comment: Managed by our managed by allergy immunology. Natalie Pearson. Maintenance inhaler Flovent. Continue Code(s): J45.20 - Mild intermittent asthma, uncomplicated Patient Instructions: Health screenings for women ages 18 to 39 You should visit your health care provider from time to time, even if you are healthy. The purpose of these visits is to: Screen for medical issues Assess your risk for future medical problems Encourage a healthy lifestyle Update vaccinations and other preventive care services Help you get to know your provider in case of an illness Information Even if you feel fine, you should still see your provider for regular checkups. These visits can help you avoid problems in the future. For example, the only way to find out if you have high blood pressure is to have it checked regularly. High blood sugar and high cholesterol levels also may not have any symptoms in the early stages. A simple blood test can check for these conditions. There are specific times when you should see your provider or receive specific health screenings. The [place] Preventive Services Task Force publishes a list of recommended screenings. Below are screening guidelines for women ages 18 to 39. BLOOD PRESSURE SCREENING Your blood pressure should be checked at least once every 3 to 5 years if: Your blood pressure is in the normal range (top number less than 120 mm Hg and bottom number less than 80 mm Hg) You don't have risk factors for high blood pressure Ask your provider if you need your blood pressure checked more often if: The top number is 120 to 129 mm Hg or the bottom number is 70 to 79 mm Hg You have diabetes, heart disease, kidney problems, are overweight, or have certain other health conditions You have a first-degree relative with high blood pressure You are Black You had high blood pressure during a If the top number is 130 mm Hg or greater or the bottom number is 80 mm Hg or greater, this is considered stage 1 hypertension. Schedule an appointment with your provider to learn how you can reduce your blood pressure. Watch for blood pressure screenings in your area. Ask your provider if you can stop in to have your blood pressure checked. BREAST CANCER SCREENING Experts do not agree about the benefits of breast self-exams in finding breast cancer or saving lives. Talk to your provider about what is best for you. A screening mammogram is not recommended for most women under age 40. Your provider may discuss and recommend mammograms, MRI scans, or ultrasounds if you have an increased risk for breast cancer, such as: A mother or sister who had breast cancer at a young age (most often starting screening earlier than the age the close relative was diagnosed) You carry a high-risk genetic marker CERVICAL CANCER SCREENING Cervical cancer screening should start at age 21 years unless your provider advises otherwise. After the first test: Women ages 21 through 29 should have a Pap test every 3 years. Exoprts do not agree on whether HPV testing is recommended for this age group. Women ages 30 through 65 should be screened with either a Pap test every 3 years or the HPV test every 5 years or both tests every 5 years (called cotesting ). Women who have been treated for precancer (cervical dysplasia) should continue to have Pap tests for 20 years after treatment or until age 65, whichever is longer. If you have had your uterus and cervix removed (total hysterectomy), and you have not been diagnosed with cervical cancer or precancer (high grade cervical neoplasia), you do not need cervical cancer screening. CHOLESTEROL SCREENING Cholesterol screening should begin at: Age 45 for women with no known risk factors for coronary heart disease Age 20 for women with known risk factors for coronary heart disease Repeat cholesterol screening should take place: Every 5 years for women with normal cholesterol levels More often if changes occur in lifestyle (including weight gain and diet) More often if you have diabetes, heart disease, kidney problems, or certain other conditions DIABETES SCREENING You should be screened for diabetes starting at age 35 and then repeated every 3 years if you have no risk factors for diabetes. Screening may need to start earlier and be repeated more often if you have other risk factors for diabetes, such as: You have a first degree relative with diabetes. You are overweight or have obesity. You have high blood pressure, prediabetes, or a history of heart disease. Screening for diabetes should be done if you are planning to become and you are overweight and have other risk factors such as high blood pressure. DENTAL EXAM Go to the dentist once or twice every year for an exam and cleaning. Your dentist will evaluate if you need more frequent visits. EYE EXAM Have an eye exam every 5 to 10 years before age 40. If you have vision problems, have an eye exam every 2 years or more often if recommended by your provider. You should have an eye exam that includes an examination of your retina (back of your eye) at least every year if you have diabetes. IMMUNIZATIONS Commonly needed vaccines include: Flu shot: get one every year. COVID-19 vaccine: ask your provider what is best for you. Tetanus-diphtheria and acellular pertussis (Tdap) vaccine: have one at or after age 19 as one of your tetanus-diphtheria vaccines if you did not receive it as an adolescent. Tetanus-diphtheria: have a booster (or Tdap) every 10 years. Varicella vaccine: receive 2 doses if you never had chickenpox or the varicella vaccine. Hepatitis B vaccine: receive 2, 3, or 4 doses, depending on your exact circumstances. Measles, mumps, and rubella (MMR) vaccine: receive 1 to 2 doses if you are not already immune to MMR. Your provider can tell you if you are immune. Ask your provider about the human papillomavirus (HPV) vaccine if: You have not received the HPV vaccine in the past You have not completed the full vaccine series (you should catch up on this shot) Ask your provider if you should receive other immunizations if you have certain health problems that increase your risk for some diseases such as pneumonia. INFECTIOUS DISEASE SCREENING Women who are sexually active should be screened for chlamydia and gonorrhea up until age 25. Women 25 years and older should be screened for chlamydia and gonorrhea if at high risk. Screening for hepatitis C: All adults ages 18 to 79 should get a one-time test for hepatitis C. people should be screened at every . Screening for human immunodeficiency virus (HIV): All people ages 15 to 65 should get a one-time test for HIV. Depending on your lifestyle and medical history, you may also need to be screened for infections such as syphilis and HIV, as well as other infections. PHYSICAL EXAM All adults should visit their provider from time to time, even if they are healthy. The purpose of these visits is to: Screen for disease Assess your risk of future medical problems Encourage a healthy lifestyle Update your vaccinations and other preventive care services Maintain a relationship with a provider in case of an illness Your height, weight, and BMI should be checked at every exam. During your exam, your provider may ask you about: Depression and anxiety Diet and exercise Alcohol and tobacco use Safety issues, such as using seat belts, smoke detectors, and intimate partner violence Your medicines and risk for interactions SKIN SELF-EXAM Your provider may check your skin for signs of skin cancer, especially if you're at high risk, such as if you: Have had skin cancer before Have close relatives with skin cancer Have a weakened immune system OTHER SCREENING Talk with your provider about colon cancer screening if you have a strong family history of colon cancer or polyps, or if you have had inflammatory bowel disease or polyps yourself. Routine bone density screening of women under 40 is not recommended. Coding Level of Care Code Est Pt Prev Care 18-39y(21748) Diagnoses Adult general medical exam Z00.00 Mild episode of recurrent major depressive disorder F33.0 Major depression episode severity: mild ELOISE (generalized anxiety disorder) F41.1 Allergic rhinitis due to animal hair and dander J30.81 Allergic rhinitis trigger: animal hair and dander Syncope, unspecified syncope type R55 Syncope type: unspecified Flexural eczema L20.82 Eczema type: flexural Elevated LDL cholesterol level E78.00 Mild intermittent asthma in adult without complication J45.20 Additional Codes ELOISE-7 Assessment Billing - ELOISE-7 Assessment Tool: ELOISE-7 Assessment 71124 ([id number])
[2023-10-17 08:08] VITALS: BP 102/54; PULSE 88; RESP 12; O2SAT 98; BMI 24.3
== END 2023-10-17 08:46 | disposition home or self-care (01) ==
PROVIDERS: PCP Family Medicine; Visit Provider Nurse Practitioner Family
DX: Z00.00 Encounter for general adult medical examination without abnormal findings (principal); F33.0 Major depressive disorder, recurrent, mild; J30.81 Allergic rhinitis due to animal (cat) (dog) hair and dander; R55 Syncope and collapse
CPT/HCPCS: 99395

== ENCOUNTER 2023-12-20 09:16 | Outpatient (AMB) | payer BC, SELFPAY ==
[2023-12-20 09:23] VITALS: BP 102/70; PULSE 96; BMI 24.5
--- NOTE | 2023-12-20 09:23 | A.OFFVIS_ITS ---
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 Required: No Allergies Seasonal Allergies Allergy (Mild, Verified 12/20/23 09:25) Unknown codeine Adverse Reaction (Mild, Verified 12/20/23 09:25) Dizziness cats Allergy (Mild, Uncoded 12/20/23 09:25) itchy dogs Allergy (Mild, Uncoded 12/20/23 09:25) Unknown horses Allergy (Mild, Uncoded 12/20/23 09:25) Unknown tree pollen Allergy (Mild, Uncoded 12/20/23 09:25) seasonal allergies Medication List - Last Reconciled 12/20/23 by HILARY Ruvalcaba albuterol sulfate 90 mcg/actuation 0 mcg inhalation fexofenadine (Wendie Allergy) 180 mg PO DAILY fluticasone propionate 100 mcg/actuation (Flovent Diskus) 1 inh inhalation BID HPI HPI Follow up post tilt table study: Details: Nolvia is a 23-year-old female who was undergoing cardiac evaluation following a syncopal event. She recently underwent an echocardiogram and tilt-table test. Today she reports that she did have an episode of lightheadedness when standing in the MRI area. She did not have full presyncope just the lightheadedness. Her blood pressure was checked and found to be normal at that time. 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 She previously describes having a full syncopal event while standing in an emergency room waiting for a procedure to start. Prior to these episodes she has not had any issues with presyncope and syncope in the past. She denies any heart palpitations. No chest discomfort, shortness of breath, falls for unknown reasons. She maintains good hydration. She normally has good activity tolerance. [facility] Medical History Numbness and tingling of lower extremity Elevated liver enzymes Seasonal allergies Surgical History [place] teeth extracted Family History Father No problems noted. Mother No problems noted. 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 [employer] and coming to [employer] [place] Current occupational exposures/hazards: No Sexual orientation: Straight/Heterosexual Gender identity: Female Cognitive needs: No Hearing needs: No Vision needs: No Review of Systems Const All systems reviewed & are unremarkable except as noted in HPI and below ENT Reports dizziness (episode of lightheadedness) Card Denies chest pain, Denies chest pain at rest, Denies chest pain with activity, Denies rapid heart rate, Denies pedal edema, Denies edema, Denies leg edema, Denies lightheadedness, Denies palpitations, Denies dyspnea, Denies dyspnea on exertion and Denies orthopnea Resp Denies cough, Denies dyspnea and Denies dyspnea on exertion GI Denies hematochezia and Denies change in stool character Musc Denies abnormal gait, Denies limited range of motion, Denies muscle cramps, Denies muscle weakness, Denies numbness, Denies radiating pain into limb, Denies stiffness and Denies tingling Neuro Denies abnormal gait, Reports dizziness (episode of lightheadedness), Denies numbness and Denies tingling Endo Denies palpitations Physical Exam Vital Signs: Last Vital Signs Pulse 96 12/20/23 09:23 BP 102/70 12/20/23 09:23 BMI result Body Mass Index 24.5 Const General: cooperative, healthy appearing, comfortable and no acute distress Orientation/consciousness: patient oriented x3 Neck Neck: Yes normal visual inspection and Yes no JVD Resp Effort & Inspection: normal respiratory effort Auscultation: clear to auscultation bilaterally, no rales, no rhonchi and no wheezes Cardio Jugular venous distension: no JVD Rate: regular rate Rhythm: regular rhythm Heart sounds: S1 normal heart sound present, S2 normal heart sound present, no murmurs and no rubs Neuro General: patient oriented x3 Extrem General: Yes normal to inspection and No no pedal edema Psych Appearance: grossly normal Mental Status: mental status grossly normal Speech and movement: Normal speech and movement present Assessment & Plan Assessment & Plan (1) Vasovagal syncope: Code(s): R55 - Syncope and collapse Category: Medical Plan: Episode of syncope when standing in an OR waiting for procedure to start. She became lightheaded and legs wobbly and proceeded to have syncope. Staff was present and raised her legs with improvement in her condition. She was brought to the break room and given orange juice and she started to feel better. She did have some residual lightheadedness for about a 1/2 hour after that event. She describes another episode of lightheadedness when standing in an MRI area. She sat down with improvement in her symptoms and blood pressure was normal. No full presyncope or syncope at that time. She did have a Holter monitor done 02/14/2023 for 2 days showing sinus rhythm with average heart rate 74, heart rate range 46 to 141, very rare SVE and VE, symptoms of lightheadedness, shakiness associated with sinus rhythm. Echocardiogram was done on 10/08/2023 showing EF 65-70%, normal diastolic filling, normal valves. She did undergo a tilt-table test on 12/11/2023 which confirms vasovagal syncope. She has been instructed to increase her fluid intake, add salt to her diet. Wear compression stockings while at work. She was given a pair from our office stock. Recognize triggers and symptoms. Sit/lay down if she becomes lightheaded. Avoid driving if any concerning symptoms. Cardiology follow-up 6 months, sooner if needed. Plan Time spent on chart review, documentation, interview and assessment Coding Level of Care Code Est Pt Level 3 (77833) Diagnoses Vasovagal syncope R55 Time Spent (min) 24
== END 2023-12-20 09:49 | disposition home or self-care (01) ==
PROVIDERS: PCP Family Medicine; Visit Provider Nurse Practitioner Family
DX: R55 Syncope and collapse (principal)
CPT/HCPCS: 99213

== ENCOUNTER → 2023-12-20 09:16 | Outpatient (BNVA) | payer BC, SELFPAY | PROVIDERS: PCP Family Medicine; Visit Provider Nurse Practitioner Family ==

== ENCOUNTER 2024-06-20 14:40 | Outpatient (AMB) | payer OTHER, SELFPAY ==
--- NOTE | 2024-06-20 14:44 | A.OFFVIS_ITS ---
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 Patient reports on and off pain that has gradually worsened in the past month. A month ago she expresses looking down at her hand at work and noticed her hand was swollen. Since this she says her swelling has not fully resolved. 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 Overuse of the left hand causes excruciating pain that shoots up to her left shoulder. Denies numbness and tingling. Describes her pain is at the base of her left thumb. Denies past injury or medical treatment. 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 DeQuervain: Details: Patient is a 24-year-old female who presents for evaluation of left wrist and thumb pain, ongoing for approximately 3-4 months. The patient states that this pain does come and go, but worsens when she is at work or when she was attempting to lift with the left hand. Patient states that this pain begins at the base of the left thumb and radiates into the forearm, occasionally radiating all the way up into the shoulder. Patient denies any prior treatment for this. Denies any numbness or tingling in the left hand. No other acute complaints or concerns at this time. [facility] Medical History Numbness and tingling of lower extremity Elevated liver enzymes Seasonal allergies Surgical History [place] teeth extracted Family History Father No problems noted. Mother No problems noted. Maternal Grandfather CAD (coronary artery disease) Social History (Updated 06/20/24 @ 14:49 by KAM Fang) Household Members: Family Both parents involved: Yes Caregiver staying overnight: No Housing: House Are you a primary point of care technician to a significant other at home: No Do you presently have visiting nurse or other home services: No 75 years or older and lives alone: No Alcohol intake: current Alcohol intake frequency: holidays/special occasions only Patient Tobacco Use Status: Never used Tobacco e-Cigarette/Vaping Use: Never Used service: No Current occupational status: employed Current occupation: [employer] Current occupational exposures/hazards: No Sexual orientation: Straight/Heterosexual Gender identity: Female Cognitive needs: No Hearing needs: No Vision needs: No Physical Exam Vital Signs: BMI result Body Mass Index 23.9 Extrem Other: Patient is alert, oriented, and in no acute distress. Neuro: Normal sensation of the tips of all digits of the left hand at this time Vascular: Cap refill brisk Pain: Patient reports tenderness to palpation of the left radial styloid Positive Ángel in the left Negative Ángel on the right ROM: Patient is able to make a closed fist and extend all digits of the left hand fully Skin: No lacerations or abrasions. General: No ecchymosis, erythema, or evidence of infection. Psych: Appears grossly normal Affect normal Attitude cooperative Office Procedures AMB Tendon Injection Tendon Injection [id number] Tendon Sheath Injection All charges added?: Procedure code (CPT) selection complete Assessment & Plan Assessment & Plan (1) De Quervain's tenosynovitis, left: Code(s): M65.4 - Radial styloid tenosynovitis [de Quervain] Category: Medical Plan 1. De Quervain tenosynovitis, left Patient is educated about this condition and the treatment options available Patient would like to proceed with steroid injection at this time Injection #: The risks and benefits of a steroid injection including but not limited to risk of damage to blood vessels, nerves, tendons, infection, skin bleaching, failure to improve symptoms, increased pain, and possible need for further injections or other intervention were discussed with the patient and the patient wishes to proceed with the steroid injection. Once consent was obtained, I sterilely prepped the area over the 1st dorsal compartment of the left thumb. I then injected the 1st dorsal compartment with a combination of 1 mL of dexamethasone (4mg/ml), and 1% lidocaine. The patient tolerated the procedure well with no complications and good resolution of their symptoms prior to leaving clinic. If the patient continues to have pain 6-8 weeks following this injection, they may call to schedule appointment to discuss alternative treatment options Coding Level of Care Code New Pt Level 3 (09602) Diagnoses De Quervain's tenosynovitis, left M65.4 CPT Codes Tendon Injection - Tendon Injection 1: [id number] Tendon Sheath Injection ([id number])
[2024-06-20 14:45] VITALS: BMI 23.9
== END 2024-06-20 15:16 | disposition home or self-care (01) ==
PROVIDERS: PCP Family Medicine
DX: M65.4 Radial styloid tenosynovitis [de Quervain] (principal)
CPT/HCPCS: 20550; 99203

== ENCOUNTER → 2024-06-20 14:40 | Outpatient (BNVA) | payer BC, SELFPAY | PROVIDERS: PCP Family Medicine | DX: M65.4 Radial styloid tenosynovitis [de Quervain] (principal) | CPT/HCPCS: 20550; J1100; J2003 ==

== ENCOUNTER 2024-08-06 08:32 | Outpatient (REF) | payer OTHER, SELFPAY ==
--- OUTSIDE RECORDS SUMMARY | 2024-08-06 09:34 | XMS_ITS | Data Portability ---
Author Organization [place] - [facility], [facility] Address [address] [place] [address] Assessment Encounter Date Assessment Date Assessment LastModified by Organization Details LastModified Time 02/26/2018 02/26/2018 ABDOMINAL PAIN-- Resolved! Will con't healthy eating and not skipping meals. Has regained some weight. Recheck if any recurrence, otherwise recheck at this winter. [email or web address] Not available 02/26/2018 12:03:06 07/25/2019 07/25/2019 Nolvia is a 19 y/o here for a wcc today. Nl growth and development. Age appropriate AG given. Follow up in 1 year for WCC. Discussed transition to adult medicine, will give referral today. 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 Nl growth and development. Age appropriate AG given. Follow up in 1 year for WCC. Discussed transition to adult medicine. Flu vaccine completed for season. 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 Gets STI testing yearly though bottling line operator, will defer today. Lactose intolerance - avoids milk, will take calcium supplement Not available 09/09/2020 21:22:01 Plan of Treatment Reminders Order Date Submit Date Provider Last Modified By Organization Details Last Modified Time Details Appointments None recorded. Lab PPD (purified protein derivative) , skin test 2018 019 [facility], [address] [place] [address], [phone], 9 10:06:23 lipid panel, blood 2018 019 [facility], [address] [place] [address], [phone], 9 11:06:11 rapid strep group A, throat 2018 019 [facility], [address] [place] [address], [phone], 9 09:49:42 culture, throat 2018 019 [facility], [address] [place] [address], [phone], 9 09:49:42 Referral internal medicine referral 2020 021 [email or web address] Not available 1 15:17:27 internal medicine referral 2018 [email or web address] Not available 9 13:58:48 Procedures None recorded. Surgeries None recorded. Imaging US, lower leg - PT WITH PAINFUL RIGHT CALF 10 DAYS AFTER EXERCISE WITH DIFFIULTY WALKING 2' TO MYALGIA. HAS DISTINCTLY COLD RIGHT LOWER LEG COMPARED TO LEFT. NOT ICING IT . PLEASE R/O DVT.POSTERI OR TIB PULSES NORMAL. CANNOT PALPATE DP PULSES BILAT. GOOD CAP RETURN. 2017 [facility], [address], [place], [address], 8 16:33:08 Medication Orders Tubersol 5 tub. unit/0.1 mL intradermal injection solution 2018 019 [email or web address] Not available 1 14:23:42 amoxicillin 500 mg capsule 2018 [email or web address] 0 [facility], [address] [facility], [place], [address], 10:17:23 Patient TargetsNo targets recorded. Patient Instructions Encounter Date Encounter Id Patient Instructions Last Modified By Organization Details Last Modified Time 06/07/2018 [id number] WILL REF TO ER T O R/O DVT. IF NEG, WILL USE HEAT/ALLEVE 330 BID FOR 5 DAYS/GENTLE MASSAGE/CRUTCHES WITH PROGRESSIVE WT BEARING. [email or web address] Not available 06/07/2018 15:26:58 09/18/2018 [id number] SX CARE [email or web address] Not available 09/18 09:49:49 07/25/2019 [id number] program - 5 fruits & veggies Not available 07/25/2019 10:49:38 5210 program - 1 hour of exercise Not available 07/25/2019 10:49:38 patient health questionnaire depression assessment* Not available 07/25/2019 10:49:38 immunization: wh at you need to know Not available 07/25/2019 10:49:38 09/09/2020 [id number] program - 5 fruits & veggies Not available 09/09/2020 14:51:02 5210 program - 1 hour of exercise Not available 09/09/2020 14:51:02 patient health questionnaire depression assessment* Not available 09/09/2020 14:51:02 immunization: wh at you need to know Not available 09/09/2020 14:51:02 Reason for Referral Internal Medicine Referral f or Adult health examination Referring Physician: Cynthia Phillips, Pediatric Medicine, Encounter Date: 07/25/2019 Internal Medicine Referral f or Adult health examination Referring Physician: Cynthia Phillips Pediatric Medicine, Encounter Date: 09/09/2020 Results Created Date Observation Date Name Description Value Unit Range Abnormal Flag Note LastModifiedBy Organization Detail LastModifiedTime 09/09/2020 patie nt healt h quest ionna angelia depre ssion asses sment * PHQ-9 negati ve Not Available [facility] [address] [place] [address], DEE[place] Perez, [phone], 09/08/2020 16:02:50 07/25/2019 patie nt healt h quest ionna angelia depre ssion asses sment * PHQ-9 negati ve Not Available [facility] [address] [place] [address], [phone], 07/25/2019 08:10:01 09/18/19 19 09/18/2018 cultu re, throa t Result 24 HR negati ve Not Available [facility] [address] [place] [address], [phone], 09/18/2018 09:34:32 09/18/19 19 09/18/2018 cultu re, throa t Result 48 HR negati ve Not Available [facility] [address] [place] [address], [phone], 09/18/2018 09:34:32 09/18/19 19 09/18/2018 rapid strep group A, throa t Rapid Strep negati ve Not Available [facility] [address] [place] [address], [phone], 09/18/2018 09:34:31 07/27/20 19 07/27/2019 PPD (joseph fied prote in deriv ative ), skin test Result negati ve Not Available [facility] [address] [place] [address], [phone], 07/25/2019 08:18:10 07/27/20 19 07/27/2019 PPD (joseph fied prote in deriv ative ), skin test Induration mm 0mm Zane d , Read by Arnold judge RN Not Available [facility] [address] [place] [address], [phone], 07/25/2019 08:18:10 01/21/20 21 01/20/2021 PPD (joseph fied prote in deriv ative ), skin test Result negati ve Not Available [facility] [address] [place] [address], [phone], 01/18/2021 10:32:51 01/21/20 21 01/20/2021 PPD (joseph fied prote in deriv ative ), skin test Induration mm 0 Not Available [facility] [address] [facility], [place], [address], 01/18/2021 10:32:51 06/07/20 18 US, lower leg No observ ation record ed. [email or web address] [facility] [address], [place], [address], 06/07/2018 17:52:11 06/07/20 18 06/07/2018 US, lower leg No observ ation record ed. [email or web address] Not Available 2017 17:52:37 Result Notes None recorded. Problems Name Problem SNOMED Code Status Onset Date Resolution Date Notes Provider Name and Address Organization Details Recorded Time Anxiety 65202760 Active [facility] 5 15:33:21 Vomiting 313453839 Completed 04/27/2014 [facility] 4 14:29:21 Pain in throat 324608280 Completed 07/10/2011 Not Available [facility] 3 03:03:10 Acute upper respirator y infection 55216363 Completed 200607/10/2011 Not Available [facility] 3 03:01:20 Otitis media 93511022 Completed 200707/10/2011 Not Available [facility] 3 03:01:20 Viral disease 61766363 Completed 09/29/2011 Not Available [facility] 3 03:01:20 Viral disease 38168688 Completed 07/10/2011 Not Available [facility] 3 03:01:20 Acute conjunctiv itis 71102087 Completed 200607/10/2011 Not Available [facility] 3 03:01:20 Acute pharyngiti s 546783811 Completed 200607/10/2011 Not Available [facility] 3 03:01:20 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 Procedures Surgical History None recorded. Imaging Results Imaging Date Name Status LastModified by Organiz ation Details LastModified Time 06/07/2018 US, lower leg completed [email or web address] [facility] [address] [facility] [address], [place], [address], 06/07/2018 17:52:11 06/07/2018 US, lower leg completed [email or web address] Information not available 06/07/2018 17:52:37 Procedure Notes None recorded. Medical Equipment None Reported. Allergies No known drug allergies Medications Name Sig Start Date Stop Date Status Note LastModified by Organization Details LastModified Time amoxicillin 500 mg capsule TAKE 1 CAPSULE BY MOUTH 3 TIMES A DAY 07/25 completed Not Available Not Available Not Available fluoride 1 mg (2.2 mg sodium fluoride) tablet 1 TAB QAM TO AGE 12 2008 active Not Available Not Available Not Avai lable tretinoin 0.025 % topical cream APPLY A PEA SIZED AMOUNT TO FACE, BACK, AND CHEST AT BEDTIME. START WITH EVERY 3 NIGHT FOR 1 WEEK, THEN EVERY OTHER NIGHT FOR 1 WEEK, THEN N 09/09 completed Not Available Not Available Not Available Tubersol 5 tub. unit/0.1 mL intradermal injection solution Inject 0.1 mL by intraderm al route. 2020 active Not Available Not Available Not Avai lable cyproheptad ine 4 mg tablet TAKE 1 TAB QHS OR BID TO PREVENT HEADACHE AND VOMITING. 2013 active Not Available Not Available Not Avai lable cephalexin 250 mg/5 mL oral suspension active Not Available Not Available N ot Available hydrocodone -homatropin e 5 mg-1.5 mg/5 mL oral syrup TAKE 1/2 TO 3/4 TEASPOONF UL EVERY 6 HOURS FOR COUGH 07/09 completed Not Available Not Available Not Available omeprazole 20 mg capsule,del ayed release Take 1 capsule every day by oral route for 90 days. 02/26 completed Not Available Not Available Not Available amoxicillin 400 mg/5 mL oral suspension Take 11 mL twice a day by oral route for 14 days. 11/22 completed Not Available Not Available Not Available azithromyci n 200 mg/5 mL oral suspension TAKE 2 & 1/2 TEASPOONF UL ONCE A DAY ON DAY 1 THEN TAKE 1 & 3/4 TEASPOONF UL ONCE A DAY ON DAYS 2-5 07/09 completed Not Available Not Available Not Available medroxyprog esterone 150 mg/mL intramuscul ar suspension INJECT ONE MILLILITE R BY IMTRAMUSC ULAR ROUTE (INTO THE SKIN) EVERY THREE MONTHS. active Not Available Not Available No t Available 08/18 (28) 1 mg-20 mcg (21)/75 mg (7) tablet TAKE ONE TABLET BY MOUTH EVERY DAY - TAKE ACTIVE PILL CONTINUOU S AND SKIP LAST WEEK OF PLACEBO active Not Available Not Available No t Available chlorhexidi ne gluconate 0.12 % mouthwash GARGLE 2 TABLESPOO NSFUL TWICE A DAY NEEDED 07/09 completed Not Available Not Available Not Available ProAir HFA 90 mcg/actuati on aerosol inhaler INHALE TWO PUFFS BY MOUTH EVERY 4 TO 6 HOURS 07/09 completed Not Available Not Available Not Available clindamycin 1.2 % (1 % base)-benzo yl peroxide 5 % topical gel APPLY TO FACE IN THE MORNING FOR SPOT TREATMENT 09/09 completed Not Available Not Available Not Available Larissia 0.1 mg-20 mcg tablet TAKE ONE TABLET BY MOUTH EVERY DAY 09/09 completed Not Available Not Available Not Available Vitals Date Recorded Body height Body mass index (BMI) Percentile per age and sex Body mass index (BMI) Body weight Systolic blood pressure Diastolic blood pressure Provider Name and Address Organization Details Last Updated DateTime 9 161.92 cm 41 % 20.9 kg/m2 15574.6 8 g 122 mm[Hg] 70 mm[Hg] Janee Cruz [facility] 9 10:24:50 Date Recorded Body height Body mass index (BMI) Body mass index (BMI) Percentile per age and sex Body weight Systolic blood pressure Diastolic blood pressure Provider Name and Address Organization Details Last Updated DateTime 1 161.92 cm 23.5 kg/m2 68 % 84276.8 4 g 120 mm[Hg] 60 mm[Hg] Sandy Perales [facility] 1 14:22:58 Date Recorded Body weight Provider Name an d Address Organization Details Last Updated DateTime 02/26/2018 01755.97 g Carol Fisher L.P.N. [facility] 02/26/2018 11:35:13 Date Recorded Body weight Body temperature Provider N veronika and Address Organization Details Last Updated DateTime 09/18/2018 03931.47 g 98.2 [degF] Dottie Martin L.P.N [facility] 09/18/2018 09:30:39 Social History Question Answer Notes LastModified by Organizat ion Details LastModified Time Tobacco Smoking Status Never Smoker Calos Garcia, [facility] 04/27/2014 14:09:40 Have There Been Any Changes To Your Family Or Social Situation? No Information not available 07/09/2017 Hard Of Hearing Or Deaf In One Or Both Ears? No Information not available 07/09/2017 Legally Blind In One Or Both Eyes? 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 12/20/2017 Information not available 02/20/2019 Are You Passively Exposed To Smoke? No [email or web address] Information not available 04/27/2014 Do You Use Any Illicit Or Recreational Drugs? No Information not available 07/09/2017 Sex: Unknown Functional Status None recorded. Mental Status None recorded. Family History Relationship Description Onset Age of this Age Resolved Age Notes LastModified by Organization Details LastModified Time Mother No current problems or disability [email or web address] Not available 05/24 14:38:06 Maternal Grandfather Alcoholism [email or web address] Not available 14:38:06 Maternal Grandfather Heart disease [email or web address] Not available 2014 14:38:06 Maternal Grandfather Hypercholest erolemia lliberti Not available 2014 14:38:06 Maternal Grandfather Myocardial infarction lliberti Not available 05/24 14:38:06 Paternal Grandmother Inflammatory bowel disease lliberti Not available 2014 14:38:06 Maternal Grandmother Disorder of thyroid gland lliberti Not available 2014 14:38:06 Maternal Grandmother Asthma lliberti Not available 05/24 14:38:06 Paternal Grandfather Malignant neoplastic disease colon cancer [email or web address] Not available 07/09/2017 14:01:09 Notes:updated 06/2017 Medical History No medical history recorded. Gynecological History Statement/Question Response Date of LMP 07/24/2019 Obstetrics History GPAL:G 0 P 0 0 0 0 Immunizations Vaccine Type Date Status Note Provider Nam e and Address Organization Details Recorded Time Novel [id number], nasal 9 completed Not Available [facility] 08/16/2019 02:34:48 Hib, unspecified formulation 1 completed Not Available [facility] 06/03/2011 03:19:20 IPV 5 completed Not Available [facility] 06/03/2011 03:18:24 DTaP, unspecified formulation 1 completed Not Available [facility] 06/03/2011 03:18:24 pneumococcal conjugate PCV 7 0 completed Not Available [facility] 06/03/2011 03:18:24 DTaP, unspecified formulation 1 completed Not Available [facility] 06/03/2011 03:19:20 pneumococcal conjugate PCV 7 1 completed Not Available [facility] 06/03/2011 03:18:24 DTaP, unspecified formulation 0 completed Not Available [facility] 06/03/2011 03:18:24 Hep B, unspecified formulation 1 completed Not Available [facility] 06/03/2011 03:18:24 Hib, unspecified formulation 2 completed Not Available [facility] 06/03/2011 03:18:24 IPV 2 completed Not Available [facility] 06/03/2011 03:19:20 DTaP, unspecified formulation 2 completed Not Available [facility] 06/03/2011 03:18:24 MMR 4 completed Not Available [facility] 06/03/2011 03:18:24 Hib, unspecified formulation 1 completed Not Available [facility] 06/03/2011 03:18:24 Hep B, unspecified formulation 0 completed Not Available [facility] 06/03/2011 03:19:20 Hep B, unspecified formulation 0 completed Not Available [facility] 06/03/2011 03:18:24 pneumococcal conjugate PCV 7 1 completed Not Available [facility] 06/03/2011 03:18:24 MMR 2 completed Not Available [facility] 06/03/2011 03:18:24 IPV 0 completed Not Available [facility] 06/03/2011 03:19:20 pneumococcal conjugate PCV 7 1 completed Not Available [facility] 06/03/2011 03:18:24 Hib, unspecified formulation 0 completed Not Available [facility] 06/03/2011 03:18:24 IPV 1 completed Not Available [facility] 06/03/2011 03:18:24 Influenza, split virus, trivalent, preservative 1 completed Not Available [facility] 08/16/2019 02:35:18 meningococcal MCV4P 1 completed Not Available [facility] 08/16/2019 02:33:28 Tdap 1 completed Not Available [facility] 08/16/[facility] 02:33:37 HPV, quadrivalent 1 completed Not Available [facility] 08/16/2019 02:33:59 Influenza, split virus, trivalent, preservative 9 completed Not Available [facility] 08/16/2019 02:34:44 Influenza, live, quadrivalent, intranasal 3 completed Not Available [facility] 08/16/2019 02:35:32 HPV, quadrivalent 3 completed Not Available [facility] 08/16/2019 02:34:09 influenza, unspecified formulation 8 completed Not Available [facility] 06/03/2011 03:16:44 influenza, unspecified formulation 8 completed Not Available [facility] 06/03/2011 03:16:44 Influenza, live, quadrivalent, intranasal 4 completed Not Available [facility] 08/16/2019 02:35:49 HPV, quadrivalent 4 completed Not Available [facility] 08/16/2019 02:34:14 Influenza, live, quadrivalent, intranasal 5 completed Not Available [facility] 08/16/2019 02:36:17 influenza, unspecified formulation 7 completed Calos Blackwood, [facility] 07/09/2017 13:59:34 meningococcal MCV4P 6 completed Not Available [facility] 08/16/2019 02:37:13 Influenza, split virus, quadrivalent, PF 6 completed Not Available [facility] 08/16/2019 02:37:11 Td (adult), 5 Lf tetanus toxoid, preservative free, adsorbed 7 completed Not Available [facility] 08/16/2019 02:38:29 Influenza, split virus, quadrivalent, preservative 9 completed Calos Garcia, [facility] 07/02/2019 12:23:16 Influenza, split virus, quadrivalent, preservative 0 [facility] 08:58:50 meningococcal B, OMV 9 completed Not Available [facility] 08/16/2019 02:39:39 meningococcal B, OMV 0 [facility]2019 11:14:45 Hep A, adult 1 [facility] 09/[facility]/2020 15:03:53 DTaP, unspecified formulation 5 completed Not Available [facility] 06/03/2011 03:17:07 varicella 1 completed Not Available [facility] 06/03/2011 03:17:07 influenza, unspecified formulation 7 completed Not Available [facility] 06/03/2011 03:16:44 varicella 7 completed Not Available [facility] 06/03/2011 03:16:44 Influenza, split virus, trivalent, preservative 0 completed Not Available [facility] 08/16/2019 02:35:07 Past Encounters Encounter ID Performer Location Encounter Start Date Encounter Closed Date Diagnosis/Indication Diagnosis SNOMED-CT Code Diagnosis ICD10 Code Diagnosis Note [id number] [address] 05/27/2007 14:41:47 05/27/2007 15:32:[id number] [address] 06/28/2007 09:43:21 06/28/2007 11:29:[id number] [address] 07/04/2007 16:13:29 07/04/2007 16:55:[id number] [address] 10/28/2007 17:04:44 10/28/2007 17:06:[id number] [address] 06/04/2008 14:44:20 06/04/2008 16:01:[id number] [address] 07/02/2008 15:13:36 07/02/2008 15:23:21 [id number] [address] 07/31/2008 12:04:16 07/31/2008 12:31:00 [id number] [place] [address] 08/28/2008 15:12:48 08/28/2008 16:24:[id number] [address] 01/25/2009 09:20:02 01/25/2009 10:27:[id number] [address] 06/30/2009 15:12:17 06/30/2009 16:20:43 [id number] PVP [address] [address] 09/30/2009 16:34:41 09/30/2009 17:36:[id number] [address] 06/16/2010 15:05:20 06/16/2010 17:05:14 [id number] PVP [address] [facility] [place] [id number] 09/24/2010 10:53:36 09/24/2010 11:33:[id number] [address] 10/27/2010 13:44:37 10/27/2010 15:01:[id number] [address] 11/08/2010 08:57:08 11/08/2010 09:45:36 [id number] PVP [address] [address] 07/10/2011 15:55:46 07/10/2011 17:49:29 [id number] PVP [address] [address] 07/27/2011 13:21:44 07/27/2011 14:19:31 [id number] PVP [address] [facility] [place] [address] 09/17/2011 10:46:21 09/17/2011 11:34:15 [id number] [place] [address] 2 09/29/2011 13:23:54 09/29/2011 14:26:34 [id number] Roland Wells MD [place] [address] 2 04/25/2013 15:07:19 04/25/2013 16:58:43 Well child 862493921 Developmen chula academic disorder 8868781 Anxiety 72085195 [id number] Rahda Pierre R.N. [place] [address] 2 03/27/2014 10:07:08 03/27/2014 13:36:16 Anxiety [id number] [facility] 640901334 [id number] Carlie Fleming [place] [address] 2 04/27/2014 14:01:58 04/27/2014 17:32:39 Well child 539516016 Anxiety 14669699 [id number] Lamar Bailey [place] [address] 2 03/29/2015 14:50:41 03/29/2015 17:13:12 Anxiety 63814048 [id number] Gaby Ramirez [place] [address] 2 05/03/2015 16:28:54 05/03/2015 17:18:53 Influenza vaccine needed 2114967946 106 Z23 Anxiety 50504504 F41.9 [id number] Roland Wells MD [place] [address] 2 05/24/2015 14:30:17 05/24/2015 17:31:31 Well child 696779605 Z00.129 Anxiety 88093893 F41.9 much improved with hypnosis [id number] Tiana Shook MD [place] [address] 2 07/06/2015 14:50:24 07/06/2015 16:47:40 Anxiety 19979691 F41.9 much improved with hypnosis [id number] Sharon Richter MD [place] [address] 2 01/25/2016 16:25:19 01/25/2016 17:32:25 Anxiety 87725304 F41.9 [id number] Sharon Richter MD [place] [address] 2 02/21/2016 14:50:27 02/21/2016 16:33:54 Anxiety 89301312 F41.9 [id number] Tiana Shook MD [place] [address] 2 06/13/2016 14:38:48 06/13/2016 16:07:13 Active or passive immunization 141082111 Z23 Well child 248659960 Z00 .129 [id number] Gavino Presley MD [place] [address] 2 11/20/2016 10:20:43 11/20/2016 12:39:31 Cough 23249545 R05 2 weeks of cough. Not responding to azithromyc in as prescribed by urgent care. Suspect viral illness with lingering bronchospa stic cough.Will DC hydromorph one, do trial of albuterol to see if this provides symptomati c relief.Rec heck if no improvemen t by the end of the week. [id number] Roland Wells MD [place] [address] 2 07/09/2017 13:53:33 07/10/2017 08:20:40 Well child 121148430 Z00.129 Unintentio nal weight loss 097658561 R63.4 Anxiety 39986192 F41.9 much improved since hypnosis - uses strategies that she learned [id number] Tiana Shook MD [place] [address] 2 10/04/2017 11:03:23 10/04/2017 12:05:30 Concussion injury of brain 443739068 S06.0X0A [id number] Tiana Shook MD [place] [address] 2 12/20/2017 16:21:23 12/21/2017 13:22:22 Abdominal pain 91973704 R10.9 [id number] Tiana Shook MD [place] [address] 2 02/26/2018 11:26:46 02/26/2018 12:12:57 Abdominal pain 43029429 R10.9 [id number] Roland Wells MD [place] [address] 2 06/07/2018 14:17:59 06/07/2018 15:48:36 Muscle pain 95387516 M79.10 Pain in ri ght lower limb 322852508 M79.604 [id number] Roland Wells MD [place] [address] 2 09/18/2018 09:26:29 09/18/2018 09:54:04 Acute pharyngitis 691134821 J02.9 Acute fron chula sinusitis 90564039 J01.10 [id number] CYNTHIA PHILLIPS [place] [address] 2 07/25/2019 10:00:57 07/25/2019 13:04:21 Active or passive immunization 408499230 Z23 Adult [facility] examination 923746922 Z00.00 Normal bod y mass index 42607202 Z68.20 Tuberculos is screening 847401467 Z11.1 Acquired l actase deficiency 17217976 E73.1 [id number] CYNTHIA PHILLIPS [place] [address] 2 09/09/2020 14:16:53 09/10/2020 08:12:56 Diet education [id number] Z71.3 Exercises education, guidance, and counseling [id number] Z71.82 Normal bod y mass index [id number] Z68.23 [facility] th examination [id number] Z00.00 Active or passive immunization [id number] Z23 Health Concerns Section Related Observation LastModified by Organization Detai ls LastModified Time None Recorded Concern Status LastModified by Organization Details LastModified Time None Recorded Advance Directives Directive None Recorded Payers Encounter Date Sequence Insurance Name Policy Number Policy Rose Covered Member ID Rose Member ID Guarantor Name 02/26/2018 1 [place] [id number] Sachi Parmar Jr [id number] Sachi Parmar 06/07/2018 1 [place]) [id number] Sachi Parmar Jr [id number] Sachi Parmar 09/18/2018 1 [place]) [id number] Sachi Parmar Jr [id number] Sachi Parmar 07/25/2019 1 [place]) [id number] Sachi Parmar Jr [id number] Sachi Parmar 09/09/2020 1 [place]) [id number] Sachi Parmar Jr [id number] Sachi Parmar 09/09/2020 1 [place] [id number] Sachi Parmar Jr [id number] Sachi Parmar Notes Date Note Type Note Provider Name and Address Organization Details Recorded Time 02/26/2018 text/html RS Sick Visit Narrative HistoryReported bypatient.Notes:RECHE CK ABD PAIN, STOMACH ACHES HAVE IMPROVED. TOOK OMEPRAZOLE FOR ABOUT 3 WEEKS THEN STOPPED MEDICINE BUT STARTED EATING MORE DURING THE DAY TO AVOID HAVING AN EMPTY STOMACH AND NOW FEELS BETTER. Not sure which helped-- the med or just eating more. Has not had any belly aches in at least two weeks, and that was just once. Stools 2-3 times weekly, formed, not hard to go.Denies diarrhea. HAS NO OTHER CONCERNS.Denies ST, nasal congestion, cough, fevers, joint issues or other rash.Labs were all nl. Tiana Shook MD [address] [place] [address], [id number], [facility] 02/26/2018 12:03:09 06/07/2018 text/html RS Sick Visit Narrative HistoryReported bypatient.Notes:WENT TO THE GYM 05-29-18 FOR THE FIRST TIME AND TRIED SQUATING WITH A 25# WEIGHT. PATIENT THINKS SHE WAS DOING EXERCISE WRONG ABOUT 10 DAYS AGO. THE LEG STARTED HURTING THE NEXT DAY AND GOT WORSE IN THE FEW DAYS AFTER THAT UNTIL SHE COULD NOT WALK EASILY, THEN SHE STOOD AT WORK FOR 6 HOURS AND IT GOT A LOT WORSE. WAS NOT RESTING AND WAS STANDING 6 HOURS AT WORK. SEEN AT URGENT CARE 4 DAYS AGO AND DX W/ PULLED MUSCLE OF R LOWER LEG. TAKING IBUPROFEN AND USING ICE. USING CRUTCHES AND ELEVATING CONSTANTLY. NUMBNESS/ TINGING OF TOES WHEN LEG IS NOT ELEVATED. NO SWELLING OR REDNESS. PAIN IS DESCRIBED BEHIND THE KNEE AND AN ACHY PAIN BUT CAN BE MORE SHARP WITH CERTAIN MOVEMENT. Roland Wells MD [address], [place], , [facility] 06/07/2018 15:33:33 09/18/2018 text/html RS Sick Visit Narrative HistoryReported bypatient.Notes:ST, NASAL CONGESTION AND RUNNY NOSE X2 WEEKS. PRODUCTIVE COUGH X4 DAYS. MCCLAIN AND NAUSEA THE PAST 2 DAYS. FELT LIKE SHE WAS GOING TO PASS OUT YESTERDAY WHEN SHE WAS GETTING UP FROM LAYING DOWN QUICKLY.. DECREASED APPETITE. TAKING CLARITIN D AND IBUPROFEN PRN.AFEBRILE. DENIES VOMITING, DIARRHEA AND RASH.HAS HAD CLEAR RHINITIS FOR 2 WEEKS, BUT HAS TURNED THICK YELLOW THE PAST 4-5 DAYS. Roland Wells MD [address], [place], , [facility] 09/18/2018 09:50:09 07/25/2019 text/html pt complains of experiencing diarrhea when consuming milkNo issues with cheese, doesnt really eat yogurtSometimes issues with ice creamdrinking almond milk [facility] 07/25/2019 12:34:50 OBGyn Episode No OBEpisode recorded.
[2024-08-06 14:22] LABS: Influenza A PCR NEGATIVE (Negative); Influenza B PCR NEGATIVE (Negative); Resp Syncy Virus RNA Qual PCR NEGATIVE (Negative); SARS COV2 PCR INHOUSE NEGATIVE (Negative)
== END 2024-08-06 08:33 | disposition home or self-care (01) ==
LOC: HO.LAB 08:32
PROVIDERS: PCP Family Medicine; Visit Provider Physician Assistant
DX: J06.9 Acute upper respiratory infection, unspecified (principal)
CPT/HCPCS: 0241U

== ENCOUNTER 2024-08-06 08:32 | Outpatient (AMB) | payer OTHER, SELFPAY ==
--- NOTE | 2024-08-06 08:42 | AM.OFFWIN_ITS ---
Intake Vital Signs 08/06/24 08:43 Weight 138 lb BP 120/80 Blood Pressure Location Rt brachial Position Sitting Pulse 94 Pulse Source Pulse Oximeter Temp 98.1 F Temp Source Oral Pulse Oximetry (%) 98 Oxygen Delivery Method Room Air Intake Visit Reasons: EP SOB Intake Note: Patient here because she is being treated for sinus infection w/amox and is a lmost done w/them and has been having SOB which started about 2 days ago and is also having lower left quad pain. Patient Tobacco Use Status: Never used Tobacco Allergies Seasonal Allergies Allergy (Mild, Verified 08/06/24 08:44) Unknown codeine Adverse Reaction (Mild, Verified 08/06/24 08:44) Dizziness cats Allergy (Mild, Uncoded 08/06/24 08:44) itchy dogs Allergy (Mild, Uncoded 08/06/24 08:44) Unknown horses Allergy (Mild, Uncoded 08/06/24 08:44) Unknown tree pollen Allergy (Mild, Uncoded 08/06/24 08:44) seasonal allergies Do you need a note to return to daycare/school/sports/work: Yes HPI HPI Comments History of Present Illness Details History - The patient is a 24-year-old female pr esenting with persistent sinus congestion, shortness of breath, and abdominal pain. - Sinus symptoms have persisted for 3 to 4 days; initial clinic visit noted a sinus infection and antibiotics were prescribed. - Despite antibiotics, she continues to experience sinus pressure and is now feeling out of breath. - Lower left quadrant abdominal pain occ urred without constipation or diarrhea; denies fever. - Reports history of allergies, uses Alb uterol inhaler recently due to respiratory shortness. - Tested negative for COVID-19 at home. 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 . Physical Exam General: Cooperative, healthy appearing, comfortable and no acute distress Orientation/consciousness: Patient oriented x3 Limitations: No limitations Head: Normal to inspection Ears: Hearing grossly normal bilaterally, external ears normal and TM's normal bilaterally Nose: Normal external nose present, Normal nares present and No nasal discharge present Face and sinus: Normal facial exam and frontal sinuses tender Mouth: Normal oral and palatal mucosa present and moist mucous membranes Throat: Yes tonsils normal, Yes uvula midline. Posterior oropharynx erythema Eyes: Appearance normal, both eyes and all related structures Neck: Normal visual inspection Respiratory: Clear to auscultation bilaterally. Normal respiratory effort, able to speak in complete sentences, Actively coughing, no respiratory distress, not tachypneic, no tripod positioning and no use of accessory muscles Cardiovascular: Regular rate and rhythm. Normal S1 and S2 GI: TTP RLQ and LLQ,normal BS Skin: No rashes or lesions noted Neuro: Patient oriented x3 Extremities: Normal to inspection and Yes no clubbing, cyanosis or edema PFSH Medical History Numbness and tingling of lower extremity Elevated liver enzymes Seasonal allergies Surgical History [place] teeth extracted Family History Father No problems noted. Mother No problems noted. Maternal Grandfather CAD (coronary artery disease) Social History (Updated 06/20/24 @ 14:49 by KAM Fang) Household Members: Family Both parents involved: Yes Caregiver staying overnight: No Housing: House Are you a primary critical care nurse specialist to a significant other at home: No Do you presently have visiting nurse or other home services: No 75 years or older and lives alone: No Alcohol intake: current Alcohol intake frequency: holidays/special occasions only Patient Tobacco Use Status: Never used Tobacco e-Cigarette/Vaping Use: Never Used service: No Current occupational status: employed Current occupation: [employer] Current occupational exposures/hazards: No Sexual orientation: Straight/Heterosexual Gender identity: Female Cognitive needs: No Hearing needs: No Vision needs: No Review of Systems Const All systems reviewed & are unremarkable except as noted in HPI and below Physical Exam Vital Signs: Last Vital Signs Temp 98.1 F 08/06/24 08:43 Pulse 94 08/06/24 08:43 BP 120/80 08/06/24 08:43 Pulse Ox 98 08/06/24 08:43 Oxygen Delivery Method Room Air 08/06/24 08:43 Assessment & Plan Assessment & Plan (1) Sinusitis, acute: Code(s): J01.90 - Acute sinusitis, unspecified Qualifiers: Sinusitis location: frontal Recurrence: non-recurrent Qualified Code(s): J01.10 - Acute frontal sinusitis, unspecified Plan: as below (2) Lower respiratory infection (e.g., bronchitis, pneumonia, pneumonitis, pulmonitis): Code(s): J22 - Unspecified acute lower respiratory infection Plan: The focus is to manage persistent upper respiratory and sinus symptoms, likely driven by a viral cause, and to address abdominal pain possibly linked to antibiotic use. A Solu-Medrol Dosepak is recommended for respiratory symptom relief, while recommending she discontinuing antibiotics due to limited efficacy (sinusitis x 4 days is likely viral) and adverse gastrointestinal effects. Testing for flu and RSV will be performed given the patient's exposure risk in a hospital setting. The patient should monitor for increasing abdominal symptoms to preemptively identify any appendiceal complications if necessary. Educated patient that tenderness in the right lower quadrant could be a sign of appendicitis however, it is more likely due to Augmentin use. Gave her warning signs and symptoms and when to go to the emergency department. However, did educate her that her abdominal pain should subside in the next day or 2 when she stops taking the antibiotics. Patient was informed and verbally consented to the use of an ambient scribe for clinic note documentation during this visit Orders: Orders SARS-CoV2/FLU/RSV Today J06.9 - Acute upper respiratory infection, unspecified Medications: New methylprednisolone PO PER PKG DIR for 6 days 21 ea 0RF Coding Level of Care Code Est Pt Level 3 (61088) Diagnoses Acute non-recurrent frontal sinusitis J01.10 Sinusitis location: frontal Recurrence: non-recurrent Lower respiratory infection (e.g., bronchitis, pneumonia, pneumonitis, pulmonitis) J22
[2024-08-06 08:43] VITALS: BP 120/80; PULSE 94; TEMP 36.7; O2SAT 98
== END 2024-08-06 09:36 | disposition home or self-care (01) ==
PROVIDERS: PCP Family Medicine; Visit Provider Physician Assistant
DX: J01.10 Acute frontal sinusitis, unspecified (principal); J22 Unspecified acute lower respiratory infection

== ENCOUNTER 2024-10-17 07:56 | Outpatient (AMB) | payer BC, SELFPAY ==
--- NOTE | 2024-10-17 08:07 | MHC.PC.OV ---
Vital Signs 10/17/24 08:10 Height 5 ft 3.5 in Weight 136 lb 8 oz BMI 23.8 BP 98/66 Blood Pressure Location Lt brachial Position Sitting Respiration 12 Pulse 98 Pulse Source Pulse Oximeter Temp 96.9 F Temp Source Oral Pulse Oximetry (%) 99 Oxygen Delivery Method Room Air Intake Visit Reasons: CPE Intake Note: CPE Tile Presser Required: No Allergies Seasonal Allergies Allergy (Mild, Verified 10/17/24 08:18) Unknown codeine Adverse Reaction (Mild, Verified 10/17/24 08:18) Dizziness cats Allergy (Mild, Uncoded 10/17/24 08:18) itchy dogs Allergy (Mild, Uncoded 10/17/24 08:18) Unknown horses Allergy (Mild, Uncoded 10/17/24 08:18) Unknown tree pollen Allergy (Mild, Uncoded 10/17/24 08:18) seasonal allergies Medication List - Last Reconciled 10/17/24 by Disha Clay, PEANUT SEPARATOR- albuterol sulfate 90 mcg/actuation 0 mcg inhalation fexofenadine (Wendie Allergy) 180 mg PO DAILY fluticasone propionate 100 mcg/actuation (Flovent Diskus) 1 inh inhalation BID Tobacco use date assessed: 10/17/24 Dental Screening Dental Screen Date: 10/17/24 Did you have a dental visit in the last 12 months?: Yes Did you have a dental problem in the last 6 months where you did not have access to dental care?: No Was dental information given to patient?: Patient has dentist HPI HPI Comments History of Present Illness Details 24-year-old female with MDD, generalized anxiety disorder, allergic rhinitis w/ recurrent sinusitis, eczema dermatitis, constipation, vasovagal syncope, family hx colon ca Social: [employer], works at [employer]. Living in own apt. Surgery wisdom teeth removal Family history: Maternal grandmother Graves disease, Maternal Grandfather: HLD, maternal aunt thyroid disease, mother with hypertension, paternal grandfather colon cancer + parkinsons disease siblings: 1 younger, alive and well. Specialists Cardiology Allergy and immunology Branch General Manager Ortho - L hand cortisone inj for tendonitis Derm - removed warts from fingers Health maintenance Echocardiogram 10/08/2023 within normal limits Holter within normal limits Labs 11/29/2022 normal CBC, labs 11/24/2022 normal CMP, normal TSH and lipid panel 08/2022 Vaccine UTD PAP 2022 WNL Eyes: overdue for exam. Dental: routine f/u, no issues. Skin: Eczema only during winter. Used cream in past. Here today for CPE. - The patient is a 24-year-old female presenting with a physical examination and evaluation of recurrent illnesses and dyspnea. - Reports frequent illnesses over the past year including norovirus, respiratory issues treated with prednisone, and frequent sinus infections. - Experiences shortness of breath exacerbated by physical activity such as ascending stairs or pushing objects, which improves slightly with inhaler use. Treated w/ oral steroids w/o great improvement in her sx - Diagnosed with vasovagal syncope and notes dizziness and lightheadedness during episodes of shortness of breath. Using compression and Na+ - COVID-19 infection on three occasions raises concern for possible long COVID impact on respiratory function. - Left hand tendinitis with cortisone injection for significant swelling. Active w [facility] - Easy bruising noted, often occurring from minor impacts and separate from any bleeding disorder history. - Denies chest pain and reports regular menstruation. Did not have excessive bleeding w/ wisdom tooth extraction. Denies family hx of bleeding d/o. No NSAIDS or ASA -Allergies and Asthma: No official asthma Dx. per her reports as she was not able to attend PFT. Removed from allergies and cont to have sx. Was getting allergy shots but not anymore d/t scheduling. Constitutional: Denies fever. Skin: athletes foot using otc cream + effect Eye: Denies eye pain. ENMT: Denies sore throat Gastrointestinal: Denies nausea, vomiting or abdominal pain. Cardiovascular: Denies chest pain Genitourinary: Denies dysuria. Musculoskeletal: Denies back pain and extremity pain. Neurologic: Denies headaches, confusion, and weakness. Psychiatric: Denies suicidal thoughts and substance abuse. General: Well developed, well nourished, in no acute distress. Appears stated age. Head: Normocephalic, atraumatic. Eyes: Pupils are equal, round and reactive to light and accommodation. Conjunctivae are clear. Vision grossly normal. Ears: TMs clear AU, EACS WNL Nose: Patent, without discharge. Mouth: There are no ulcers or lesions noted. No inflammation, no post nasal drip, no plaques nor exudates. Neck: Supple, no adenopathy or thyromegaly. Lungs: Clear to auscultation bilaterally. No rales, rhonchi or wheeze noted. Good air flow in all serrano. Heart: Regular rate and rhythm. No murmurs, click, rubs or gallops are noted. Abdomen: Bowel sounds present in all quadrants. The abdomen is soft, nontender, with no masses or organomegaly noted. No hernias are noted. Musculoskeletal: Joints are nontender, without swelling, redness, or effusions. Range of motion is observed to be normal. Pulses: Peripheral pulses are equal and palpable bilaterally. Extremities: No clubbing, cyanosis nor edema is noted. Neurologic: Gait and station normal. Cranial Nerves 2-12 intact. Motor strength grossly symmetrical and intact. No sensory loss. Balance normal. Skin: No rashes, ulcers, or lesions noted. Turgor is good. Skin color is good. Hair and nails are without abnormalities. Healing bruises noted on right lower leg, posterior l arm and left back. reports tinea pedis, not examined today Psych: Normal eye contact, affect and mood appropriate, and normal interactions. Patient is alert and appropriate to context. Discussion Notes I expressed the importance of pulmonary function testing and more extensive labs to explore underlying causes contributing to her symptoms. The patient agreed to these tests at [facility]. Additionally, we considered the option of allergy testing and shots at [place] if more convenient than her previous provider. I reiterated the significance of following up once the initial labs and pulmonary assessment are completed to discuss the findings and evaluate the necessity of potential referral to specialist care, such as hematology for the bruising concern only if indicated through abnormal lab findings. Assessment and Plan Recurrent upper respiratory infections: Plan to conduct pulmonary function tests and comprehensive lab tests to investigate underlying causes. Consider hematology referral if labs indicate. Dyspnea on exertion: Pulmonary function testing to diagnose and manage, further plans post-evaluation. Vasovagal syncope: Managed with increased fluid and electrolytes intake, symptomatic relief noted. Tendinitis, left hand: Recent cortisone injection with improvement; no current intervention needed. Easy bruising: Specific lab tests arranged to explore any bleeding disorders, follow-up based on findings. Patient Instructions - Proceed with scheduled pulmonary function test and labs at [facility]. - Maintain good hydration and continue use of inhalers as prescribed. - Monitor symptoms of dyspnea and report any worsening to healthcare provider. - Utilize increased salt intake and compression stockings for vasovagal symptom management. - Seek medical advice if bruising worsens or if any new unexplained symptoms arise. - Refer for allergy shots at [place] if proximity allows. - Follow up as advised once test results are available. Consent Patient was informed and verbally consented to the use of an ambient scribe for clinic note documentation during this visit. An additional 20 minutes was spent addressing the problem(s) noted at todays visit. This includes time spent before the visit reviewing the chart, time spent during the visit, and time spent after the visit on documentation reviewing laboratory results, diagnostic imaging, medications, performing a medically necessary evaluation, counseling on diagnoses, care coordination, ordering appropriate tests, ordering appropriate medications, review of tests performed by other providers, reporting test results with the patient, communication with other healthcare providers. [facility] Medical History Numbness and tingling of lower extremity Elevated liver enzymes Seasonal allergies Surgical History Tucker teeth extracted Family History Father No problems noted. Mother No problems noted. Maternal Grandfather CAD (coronary artery disease) Social History (Updated 06/20/24 @ 14:49 by KAM Fang) Household Members: Family Both parents involved: Yes Caregiver staying overnight: No Housing: House Are you a primary hospice spiritual care coordinator to a significant other at home: No Do you presently have visiting nurse or other home services: No 75 years or older and lives alone: No Alcohol intake: current Alcohol intake frequency: holidays/special occasions only Patient Tobacco Use Status: Never used Tobacco e-Cigarette/Vaping Use: Never Used service: No Current occupational status: employed Current occupation: [employer] Current occupational exposures/hazards: No Sexual orientation: Straight/Heterosexual Gender identity: Female Cognitive needs: No Hearing needs: No Vision needs: No Questionnaire PHQ-9 Over the last 2 weeks, how often have you been bothered by any of the following problems? 1. Little interest or pleasure in doing things: not at all 2. Feeling down, depressed, or hopeless: not at all 3. Trouble falling or staying asleep, or sleeping too much: not at all 4. Feeling tired or having little energy: several days 5. Poor appetite or overeating: not at all 6. Feeling bad about yourself - or that you are a failure or have let yourself or your family down: not at all 7. Trouble concentrating on things, such as reading the newspaper or watching television: not at all 8. Moving or speaking so slowly that other people could have noticed. Or the opposite - being so fidgety or restless that you have been moving around a lot more than usual: not at all 9. Thoughts that you would be better off or of hurting yourself in some way: not at all Total score: 1 Depression Screening Interpretation: Negative Depression Screening Done: Yes 65388 - PHQ-9 Billing: Yes Source: Developed by Drs. Ed Edwards, Germaine Ingram, Olivier Prather and colleagues, with an educational fernando from [employer]. Thrive Questionnaire Date Thrive assessed: 10/17/24 I am a: Patient What is your living situation today?: I have a steady place to live Within the past 12 months, did the food you bought not last and you didn't have the money to get more?: Never true Within the past 12 months, did you worry whether your food would run out before you got money to buy more?: Never true Do you have trouble paying for medicines?: No Do you have trouble getting transportation to medical appointments?: No Do you have trouble paying your heating and electricity bill?: No Do you have trouble taking care of your child, family member or friend?: No Do you have trouble with day-to-day activities such as bathing, preparing meals, shopping, managing finances, etc.?: No Are you currently unemployed and looking for a job?: No Are you interested in more education?: No Please select the resources that you would like help with: None Currently or been in a relationship where the following occur: No concerns reported THRIVE Score: 0 AUDIT C Alcohol Use Questionnaire (AUDIT-C) 1. How often do you have a drink containing alcohol?: Monthly or less 2. How many drinks containing alcohol do you have on a typical day when you are drinking?: 1 or 2 3. How often do you have six or more drinks on one occasion?: Never Total Score: 1 Score Reviewed/Action Taken: Yes ELOISE-7 AMB Questionnaire ELOISE-7 Date ELOISE - 7 assessed: 10/17/24 Feeling nervous, anxious, or on edge: 0 = Not at all Not being able to stop or control worryin = Not at all Worrying too much about different things: 0 = Not at all Trouble relaxin = Not at all Being so restless that it is hard to sit still: 0 = Not at all Becoming easily annoyed or irritable: 0 = Not at all Feeling afraid as if something awful might happen: 0 = Not at all Total ELOISE-7 score (0-4 normal; 5-9 mild; 10-14 moderate; 15-21 severe): 0 Source: Developed by Drs. Ed Edwards, Germaine Ingram, Olivier Prather and colleagues, with an educational fernando from [employer]. ELOISE-7 Assessment Billing ELOISE-7 Assessment Tool: ELOISE-7 Assessment 27210 ACT Questionnaire In the past 4 weeks, how much of the time did your asthma keep you from getting as much done at work, school or at home?: A little of the time During the past 4 weeks, how often have you had shortness of breath?: 1-2 times a week During the past 4 weeks, how often did your asthma symptoms wake you up at night or earlier than usual in the morning?: Once a week During the past 4 weeks, how often have you had to use your rescue inhaler or nebulizer medication?: 2-3 times a week How would you rate your asthma control during the past 4 weeks?: Somewhat controlled ACT Interpretation: Positive (PFT ordered) ACT Branch: Other Score: 17 Physical exam (Primary Care) Vital Signs: Last Vital Signs Temp 96.9 F 10/17/24 08:10 Pulse 98 10/17/24 08:10 Resp 12 10/17/24 08:10 BP 98/66 10/17/24 08:10 Pulse Ox 99 10/17/24 08:10 Oxygen Delivery Method Room Air 10/17/24 08:10 BMI result Body Mass Index 23.8 Tobacco/Smoking Status: Tobacco use Status Tobacco use date assessed 10/17/24 10/17/24 08:08 Patient Tobacco Use Status Never used Tobacco 10/17/24 08:08 Tobacco use type 06/21/21 16:42 e-Cigarette/Vaping Use Never Used 10/17/24 08:08 PHQ-9: PHQ-9 Score PHQ-9: Total score 1 10/17/24 08:08 Depression Screening Interpretation: Negative Thrive Assessment: Date of Thrive Assessment Date Thrive assessed 10/17/24 10/17/24 08:08 Currently or been in a relationship where the following occur: No concerns reported Coding Level of Care Code Est Pt Level 3 (07061) Est Pt Prev Care 18-39y(92848) Diagnoses Encounter for general adult medical examination with abnormal findings Z00.01 SOB (shortness of breath) R06.02 Mild intermittent asthma in adult without complication J45.20 Easy bruising R23.3 Allergic rhinitis due to animal hair and dander J30.81 Allergic rhinitis trigger: animal hair and dander Family history of colon cancer Z80.0 Flexural eczema L20.82 Eczema type: flexural ELOISE (generalized anxiety disorder) F41.1 Mild episode of recurrent major depressive disorder F33.0 Major depression episode severity: mild Vasovagal syncope R55 De Quervain's tenosynovitis, left M65.4 Tinea pedis of both feet B35.3 Laterality: bilateral Additional Codes ELOISE-7 Assessment Billing - ELOISE-7 Assessment Tool: ELOISE-7 Assessment 79067 ([id number]) PHQ-9 - 78514 - PHQ-9 Billing: Yes ([id number]) Asthma Control Questionnaire - ACT Interpretation: Positive ([id number]) Assessment & Plan Assessment & Plan (1) Encounter for general adult medical examination with abnormal findings: Code(s): Z00.01 - Encounter for general adult medical examination with abnormal findings (2) SOB (shortness of breath): Code(s): R06.02 - Shortness of breath Category: Medical (3) Mild intermittent asthma in adult without complication: Comment: PNicolasrashanti Pearson. Maintenance inhaler Flovent. Code(s): J45.20 - Mild intermittent asthma, uncomplicated Category: Medical (4) Easy bruising: Code(s): R23.3 - Spontaneous ecchymoses Category: Medical (5) Allergic rhinitis: Comment: was Managed by Allergy and immunology with weekly allergy shots. Also on Wendie. Code(s): J30.9 - Allergic rhinitis, unspecified Category: Medical Qualifiers: Allergic rhinitis trigger: animal hair and dander Qualified Code(s): J30.81 - Allergic rhinitis due to animal (cat) (dog) hair and dander (6) Family history of colon cancer: Comment: paternal grandfather Code(s): Z80.0 - Family history of malignant neoplasm of digestive organs Category: Medical (7) Eczema: Comment: Controlled with intermittent use of topical steroid cream use sparingly. Code(s): L30.9 - Dermatitis, unspecified Category: Medical Qualifiers: Eczema type: flexural Qualified Code(s): L20.82 - Flexural eczema (8) ELOISE (generalized anxiety disorder): Comment: In full remission. On not on any medications. Code(s): F41.1 - Generalized anxiety disorder Category: Medical (9) MDD (major depressive disorder), recurrent episode: Comment: In full remission. On not on any medications. Code(s): F33.9 - Major depressive disorder, recurrent, unspecified Category: Medical Qualifiers: Major depression episode severity: mild Qualified Code(s): F33.0 - Major depressive disorder, recurrent, mild (10) Vasovagal syncope: Code(s): R55 - Syncope and collapse Category: Medical (11) De Quervain's tenosynovitis, left: Code(s): M65.4 - Radial styloid tenosynovitis [de Quervain] Category: Medical (12) Tinea pedis: Code(s): B35.3 - Tinea pedis Category: Medical Qualifiers: Laterality: bilateral Qualified Code(s): B35.3 - Tinea pedis Plan . Orders: Orders Comprehensive Met. Panel Today J45.20 - Mild intermittent asthma, uncomplicated, R06.02 - Shortness of breath, R23.3 - Spontaneous ecchymoses IRON PROFILE Today J45.20 - Mild intermittent asthma, uncomplicated, R06.02 - Shortness of breath, R23.3 - Spontaneous ecchymoses TSH reflex Free T4 Today J45.20 - Mild intermittent asthma, uncomplicated, R06.02 - Shortness of breath, R23.3 - Spontaneous ecchymoses Vitamin B12 and Folate Today J45.20 - Mild intermittent asthma, uncomplicated, R06.02 - Shortness of breath, R23.3 - Spontaneous ecchymoses Factor IX Activity Today J45.20 - Mild intermittent asthma, uncomplicated, R06.02 - Shortness of breath, R23.3 - Spontaneous ecchymoses PFT pulmonary function test Today R06.02 - Shortness of breath Complete Blood Count no Diff Today J45.20 - Mild intermittent asthma, uncomplicated, R06.02 - Shortness of breath, R23.3 - Spontaneous ecchymoses Vitamin D 25-OH Total Today J45.20 - Mild intermittent asthma, uncomplicated, R06.02 - Shortness of breath, R23.3 - Spontaneous ecchymoses Zinc Today J45.20 - Mild intermittent asthma, uncomplicated, R06.02 - Shortness of breath, R23.3 - Spontaneous ecchymoses Factor VIII Activity Today J45.20 - Mild intermittent asthma, uncomplicated, R06.02 - Shortness of breath, R23.3 - Spontaneous ecchymoses Prothrombin Time INR Today J45.20 - Mild intermittent asthma, uncomplicated, R06.02 - Shortness of breath, R23.3 - Spontaneous ecchymoses Referrals Allergy & Immunology Referral J30.81 - Allergic rhinitis due to animal (cat) (dog) hair and dander Patient Instructions: Health screenings for women You should visit your health care provider from time to time, even if you are healthy. The purpose of these visits is to: Screen for medical issues Assess your risk for future medical problems Encourage a healthy lifestyle Update vaccinations and other preventive care services Help you get to know your provider in case of an illness Information Even if you feel fine, you should still see your provider for regular checkups. These visits can help you avoid problems in the future. For example, the only way to find out if you have high blood pressure is to have it checked regularly. High blood sugar and high cholesterol levels also may not have any symptoms in the early stages. A simple blood test can check for these conditions. There are specific times when you should see your provider or receive specific health screenings. The [place] Preventive Services Task Force publishes a list of recommended screenings. Below are screening guidelines for women ages 18 to 39. BLOOD PRESSURE SCREENING Your blood pressure should be checked at least once every 3 to 5 years if: Your blood pressure is in the normal range (top number less than 120 mm Hg and bottom number less than 80 mm Hg) You don't have risk factors for high blood pressure Ask your provider if you need your blood pressure checked more often if: The top number is 120 to 129 mm Hg or the bottom number is 70 to 79 mm Hg You have diabetes, heart disease, kidney problems, are overweight, or have certain other health conditions You have a first-degree relative with high blood pressure You are Black You had high blood pressure during a If the top number is 130 mm Hg or greater or the bottom number is 80 mm Hg or greater, this is considered stage 1 hypertension. Schedule an appointment with your provider to learn how you can reduce your blood pressure. Watch for blood pressure screenings in your area. Ask your provider if you can stop in to have your blood pressure checked. BREAST CANCER SCREENING Experts do not agree about the benefits of breast self-exams in finding breast cancer or saving lives. Talk to your provider about what is best for you. A screening mammogram is not recommended for most women under age 40. Your provider may discuss and recommend mammograms, MRI scans, or ultrasounds if you have an increased risk for breast cancer, such as: A mother or sister who had breast cancer at a young age (most often starting screening earlier than the age the close relative was diagnosed) You carry a high-risk genetic marker CERVICAL CANCER SCREENING Cervical cancer screening should start at age 21 years unless your provider advises otherwise. After the first test: Women ages 21 through 29 should have a Pap test every 3 years. Exoprts do not agree on whether HPV testing is recommended for this age group. Women ages 30 through 65 should be screened with either a Pap test every 3 years or the HPV test every 5 years or both tests every 5 years (called cotesting ). Women who have been treated for precancer (cervical dysplasia) should continue to have Pap tests for 20 years after treatment or until age 65, whichever is longer. If you have had your uterus and cervix removed (total hysterectomy), and you have not been diagnosed with cervical cancer or precancer (high grade cervical neoplasia), you do not need cervical cancer screening. CHOLESTEROL SCREENING Cholesterol screening should begin at: Age 45 for women with no known risk factors for coronary heart disease Age 20 for women with known risk factors for coronary heart disease Repeat cholesterol screening should take place: Every 5 years for women with normal cholesterol levels More often if changes occur in lifestyle (including weight gain and diet) More often if you have diabetes, heart disease, kidney problems, or certain other conditions DIABETES SCREENING You should be screened for diabetes starting at age 35 and then repeated every 3 years if you have no risk factors for diabetes. Screening may need to start earlier and be repeated more often if you have other risk factors for diabetes, such as: You have a first degree relative with diabetes. You are overweight or have obesity. You have high blood pressure, prediabetes, or a history of heart disease. Screening for diabetes should be done if you are planning to become and you are overweight and have other risk factors such as high blood pressure. DENTAL EXAM Go to the dentist once or twice every year for an exam and cleaning. Your dentist will evaluate if you need more frequent visits. EYE EXAM Have an eye exam every 5 to 10 years before age 40. If you have vision problems, have an eye exam every 2 years or more often if recommended by your provider. You should have an eye exam that includes an examination of your retina (back of your eye) at least every year if you have diabetes. IMMUNIZATIONS Commonly needed vaccines include: Flu shot: get one every year. COVID-19 vaccine: ask your provider what is best for you. Tetanus-diphtheria and acellular pertussis (Tdap) vaccine: have one at or after age 19 as one of your tetanus-diphtheria vaccines if you did not receive it as an adolescent. Tetanus-diphtheria: have a booster (or Tdap) every 10 years. Varicella vaccine: receive 2 doses if you never had chickenpox or the varicella vaccine. Hepatitis B vaccine: receive 2, 3, or 4 doses, depending on your exact circumstances. Measles, mumps, and rubella (MMR) vaccine: receive 1 to 2 doses if you are not already immune to MMR. Your provider can tell you if you are immune. Ask your provider about the human papillomavirus (HPV) vaccine if: You have not received the HPV vaccine in the past You have not completed the full vaccine series (you should catch up on this shot) Ask your provider if you should receive other immunizations if you have certain health problems that increase your risk for some diseases such as pneumonia. INFECTIOUS DISEASE SCREENING Women who are sexually active should be screened for chlamydia and gonorrhea up until age 25. Women 25 years and older should be screened for chlamydia and gonorrhea if at high risk. Screening for hepatitis C: All adults ages 18 to 79 should get a one-time test for hepatitis C. people should be screened at every . Screening for human immunodeficiency virus (HIV): All people ages 15 to 65 should get a one-time test for HIV. Depending on your lifestyle and medical history, you may also need to be screened for infections such as syphilis and HIV, as well as other infections. PHYSICAL EXAM All adults should visit their provider from time to time, even if they are healthy. The purpose of these visits is to: Screen for disease Assess your risk of future medical problems Encourage a healthy lifestyle Update your vaccinations and other preventive care services Maintain a relationship with a provider in case of an illness Your height, weight, and BMI should be checked at every exam. During your exam, your provider may ask you about: Depression and anxiety Diet and exercise Alcohol and tobacco use Safety issues, such as using seat belts, smoke detectors, and intimate partner violence Your medicines and risk for interactions SKIN SELF-EXAM Your provider may check your skin for signs of skin cancer, especially if you're at high risk, such as if you: Have had skin cancer before Have close relatives with skin cancer Have a weakened immune system OTHER SCREENING Talk with your provider about colon cancer screening if you have a strong family history of colon cancer or polyps, or if you have had inflammatory bowel disease or polyps yourself. Routine bone density screening of women under 40 is not recommended.
[2024-10-17 08:10] VITALS: BP 98/66; PULSE 98; RESP 12; TEMP 36.1; O2SAT 99; BMI 23.8
== END 2024-10-17 08:45 | disposition home or self-care (01) ==
LOC: HO.HMCFM 07:57
PROVIDERS: PCP Family Medicine; Visit Provider Nurse Practitioner Family
DX: Z00.01 Encounter for general adult medical examination with abnormal findings (principal); R06.02 Shortness of breath; J45.20 Mild intermittent asthma, uncomplicated; F33.0 Major depressive disorder, recurrent, mild; R23.3 Spontaneous ecchymoses; J30.81 Allergic rhinitis due to animal (cat) (dog) hair and dander; L20.82 Flexural eczema; Z80.0 Family history of malignant neoplasm of digestive organs; F41.1 Generalized anxiety disorder; R55 Syncope and collapse; M65.4 Radial styloid tenosynovitis [de Quervain]; B35.3 Tinea pedis

== ENCOUNTER 2024-10-17 08:42 | Outpatient (REF) | payer BC, SELFPAY | END 2024-10-17 08:43 | disposition home or self-care (01) | LOC: HO.WFDLDS 08:42 | PROVIDERS: Visit Provider Nurse Practitioner Family | DX: Z00.01 Encounter for general adult medical examination with abnormal findings (principal); R06.02 Shortness of breath; J45.20 Mild intermittent asthma, uncomplicated; R23.3 Spontaneous ecchymoses; J30.81 Allergic rhinitis due to animal (cat) (dog) hair and dander; L20.82 Flexural eczema; R55 Syncope and collapse; M65.4 Radial styloid tenosynovitis [de Quervain]; B35.3 Tinea pedis; Z86.59 Personal history of other mental and behavioral disorders; Z80.0 Family history of malignant neoplasm of digestive organs | CPT/HCPCS: 96127; 96160 ==

== ENCOUNTER 2024-10-20 15:42 | Outpatient (REF) | payer OTHER, SELFPAY ==
[2024-10-20 16:56] LABS: Hematocrit 37.1 % (37.0-47.0); Mean Corpuscular Hemoglobin 30.4 pg (27.0-33.0); Mean Corpuscular Volume 86.7 fL (80.0-98.0); Mean Platelet Volume 8.6 fL (9.4-12.3); Platelet Count 299 X10*3/uL (160-400); Red Blood Count 4.28 X10*6/uL (4.20-5.50); White Blood Count 8.7 X10*3/uL (4.8-10.8)
[2024-10-20 17:00] LABS: INTERNATIONAL NORM RATIO 0.9 (0.9-1.1); Prothrombin Time 10.8 SEC (10.9-12.4)
[2024-10-20 17:43] LABS: Alanine Aminotransferase 17 U/L (0-31); Albumin Level 4.5 g/dL (3.5-5.0); Alkaline Phosphatase 65 U/L (39-117); Anion Gap 12 (12-20); Aspartate Amino Transferase 23 U/L (5-31); Bilirubin Total 0.3 mg/dL (0.0-1.0); Blood Urea Nitrogen 14 mg/dL (9-16); Calcium 9.5 mg/dL (8.4-10.2); Carbon Dioxide 23 mmol/L (22-29); Chloride 108 mmol/L (96-108); Estimated Glomerular Filt Rate > 60; Glucose Random 88 mg/dL (60-115); Iron 46 mcg/dL (30-160); Percent Iron Saturation 14 % (15-50); Potassium 3.8 mmol/L (3.3-5.1); Sodium 139 mmol/L (135-145); Total Iron Binding Capacity 328 mcg/dL (228-428); Total Protein 7.1 g/dL (6.5-8.0); Unsaturated Iron Binding 282 ug/dL
[2024-10-20 17:46] LABS: Vitamin D 25-OH Total 20.1 ng/mL (>30)
[2024-10-20 18:03] LABS: Folate 11.1 ng/mL (> or = 4.0); Vitamin B12 590 pg/mL (200-900)
[2024-10-22 22:39] LABS: Factor VIII Activity 70 % normal (50-180)
[2024-10-23 22:38] LABS: Zinc 61 mcg/dL (60-130)
== END 2024-10-20 15:43 | disposition home or self-care (01) ==
LOC: HO.LAB 15:42
PROVIDERS: PCP Family Medicine; Visit Provider Nurse Practitioner Family
DX: R23.3 Spontaneous ecchymoses (principal); J45.20 Mild intermittent asthma, uncomplicated; R06.02 Shortness of breath
CPT/HCPCS: 36415; 80053; 82306; 82607; 82746; 83540; 84443; 84630; 85027; 85240; 85250; 85610

== ENCOUNTER 2024-11-03 13:48 | Outpatient (AMB) | payer OTHER, SELFPAY ==
--- NOTE | 2024-11-03 14:49 | MHC.PC.OV ---
Intake Visit Reasons: Go over lab work Intake Note: telehealth to go over labs [employer] Required: No Allergies Seasonal Allergies Allergy (Mild, Verified 11/03/24 14:50) Unknown codeine Adverse Reaction (Mild, Verified 11/03/24 14:50) Dizziness cats Allergy (Mild, Uncoded 10/17/24 08:18) itchy dogs Allergy (Mild, Uncoded 10/17/24 08:18) Unknown horses Allergy (Mild, Uncoded 10/17/24 08:18) Unknown tree pollen Allergy (Mild, Uncoded 10/17/24 08:18) seasonal allergies Medication List - Last Reconciled 11/03/24 by Disha Clay, [facility]- albuterol sulfate 90 mcg/actuation 0 mcg inhalation cholecalciferol (vitamin D3) 50 mcg PO DAILY 90 days fexofenadine ([facility] Allergy) 180 mg PO DAILY fluticasone propionate 100 mcg/actuation (Flovent Diskus) 1 inh inhalation BID Tobacco use date assessed: 11/03/24 Dental Screening Dental Screen Date: 11/03/24 Did you have a dental visit in the last 12 months?: Yes Did you have a dental problem in the last 6 months where you did not have access to dental care?: No Was dental information given to patient?: Patient has dentist HPI HPI Comments History of Present Illness Details 24-year-old female with MDD, generalized anxiety disorder, allergic rhinitis w/ recurrent sinusitis, eczema dermatitis, constipation, vasovagal syncope, family hx colon ca, Vit d def, Iron def anemia Social: [employer], works at [employer]. Living in own apt. Surgery wisdom teeth removal Family history: Maternal grandmother Graves disease, Maternal Grandfather: HLD, maternal aunt thyroid disease, mother with hypertension, paternal grandfather colon cancer + parkinsons disease siblings: 1 younger, alive and well. Specialists Cardiology Allergy and immunology [facility] - L hand cortisone inj for tendonitis Derm - removed warts from fingers Health maintenance Echocardiogram 10/08/2023 within normal limits Holter within normal limits Labs 11/29/2022 normal CBC, labs 11/24/2022 normal CMP, normal TSH and lipid panel 08/2022 Vaccine UTD PAP 2022 WNL Eyes: overdue for exam. Dental: routine f/u, no issues. Skin: Eczema only during winter. Used cream in past. History of Present Illness Telehealth visit today to follow up on labs. The labs were done to evaluate a general wellness and for complaints of shortness of breath and easy bruising. Her labs reveal low vitamin-D. She has a history of vitamin-D deficiency. Was previously on vitamin-D supplement. However stopped once her vitamin-D normalized. One of my colleagues did send in vitamin D3 50 mcg to be taken daily and she has started this. In regards to her overall labs she does have a degree of iron deficiency with a low MPV and low% iron. Otherwise normal CBC. Her coag factors in the leg or normal. She does report heavy periods. This has been lifelong. She continues to have the complaints of shortness of breath. No worse since the last office visit. She has a pulmonary function test scheduled for November 27. She denies any signs of overt bleeding. Denies any chest pain. Does not eat a restricted diet. Results: Labs 09/2024 MPV low 8.6, PT 10.8, percent iron sat low 14, Vit d 20.1 otherwise normal including VWF and Coag factors Assessment and Plan The plan will be to have her start on an [id number] multivitamin with added iron. Recommend using something like a with iron as these are easy to obtain and contain an appropriate amount of iron. This can cause GI upset. She will be taken with food. Can cause discoloration in his stool. This is all normal. Recommend continuing taking the vitamin-D supplement until advised otherwise. We will see if the bruising improves as the anemia improves. I asked that she send me a portal message once the pulmonary function testing is complete. I will arrange for a telehealth follow up at that time. In regards to the issues addressed today we will recommend for repeat labs to be done in 3 months. This lab order was placed today. I have requested a telehealth visit to review these labs in 3 months. all questions answered. Wishes to WAQAS to me as PCP, due to preference for female provider. Message sent to front office. Telehealth Attestation The patient has been explained that this is an interactive (audio/video) telehealth encounter and what that consists of. The patient understands and wishes to proceed. AVOB platform was used. Total time spent caring for the patient today was 18 minutes. This includes time spent before the visit reviewing the chart, time spent during the visit, and time spent after the visit on documentation, reviewing laboratory results, diagnostic imaging, medications, performing a medically necessary evaluation, counseling on diagnoses, care coordination, ordering appropriate tests, ordering appropriate medications, review of tests performed by other providers, reporting test results with the patient, communication with other healthcare providers. [facility] Medical History Numbness and tingling of lower extremity Elevated liver enzymes Seasonal allergies Surgical History [place] teeth extracted Family History Father No problems noted. Mother No problems noted. Maternal Grandfather CAD (coronary artery disease) Social History (Updated 06/20/24 @ 14:49 by KAM Fang) Household Members: Family Both parents involved: Yes Caregiver staying overnight: No Housing: House Are you a primary care transitions nurse to a significant other at home: No Do you presently have visiting nurse or other home services: No 75 years or older and lives alone: No Alcohol intake: current Alcohol intake frequency: holidays/special occasions only Patient Tobacco Use Status: Never used Tobacco e-Cigarette/Vaping Use: Never Used service: No Current occupational status: employed Current occupation: [employer] Current occupational exposures/hazards: No Sexual orientation: Straight/Heterosexual Gender identity: Female Cognitive needs: No Hearing needs: No Vision needs: No Questionnaire Thrive Questionnaire Date Thrive assessed: 10/12/24 I am a: Patient What is your living situation today?: I have a steady place to live Within the past 12 months, did the food you bought not last and you didn't have the money to get more?: Never true Within the past 12 months, did you worry whether your food would run out before you got money to buy more?: Never true Do you have trouble paying for medicines?: No Do you have trouble getting transportation to medical appointments?: No Do you have trouble paying your heating and electricity bill?: No Do you have trouble taking care of your child, family member or friend?: No Do you have trouble with day-to-day activities such as bathing, preparing meals, shopping, managing finances, etc.?: No Are you currently unemployed and looking for a job?: No Are you interested in more education?: No Please select the resources that you would like help with: None Currently or been in a relationship where the following occur: No concerns reported THRIVE Score: 0 ELOISE-7 AMB Questionnaire ELOISE-7 Date ELOISE - 7 assessed: 10/17/24 Source: Developed by Drs. Ed Edwards, Germaine Ingram, Olivier Prather and colleagues, with an educational fernando from [employer]. Physical exam (Primary Care) Tobacco/Smoking Status: Tobacco use Status Tobacco use date assessed 11/03/24 11/03/24 14:50 Patient Tobacco Use Status Never used Tobacco 11/03/24 14:50 Tobacco use type 06/21/21 16:42 e-Cigarette/Vaping Use Never Used 11/03/24 14:50 Thrive Assessment: Date of Thrive Assessment Date Thrive assessed 10/12/24 11/03/24 14:50 Currently or been in a relationship where the following occur: No concerns reported Telehealth Telehealth Telehealth Platform: [facility] Location of provider rendering services: practice address Location of patient: address on file Patient Identification confirmed using: Name, : Yes Telehealth method: voice only Patient verbally consented to treatment: Yes Patient verbally consented to billing insurance company: Yes Patient informed of any privacy concerns related to visit: Yes Minutes spent on Phone/Video with Pt.: 11 Coding Level of Care Code Tele Est Pt Level 3 (12350) Complex EM visit Add On G2211 Diagnoses Vitamin D deficiency E55.9 Iron deficiency anemia, unspecified iron deficiency anemia type D50.9 Iron deficiency anemia type: unspecified iron deficiency Easy bruising R23.3 SOB (shortness of breath) R06.02 Assessment & Plan Assessment & Plan (1) Vitamin D deficiency: Code(s): E55.9 - Vitamin D deficiency, unspecified Category: Medical (2) Iron deficiency anemia: Code(s): D50.9 - Iron deficiency anemia, unspecified Category: Medical Qualifiers: Iron deficiency anemia type: unspecified iron deficiency Qualified Code(s): D50.9 - Iron deficiency anemia, unspecified (3) Easy bruising: Code(s): R23.3 - Spontaneous ecchymoses Category: Medical (4) SOB (shortness of breath): Code(s): R06.02 - Shortness of breath Category: Medical Plan . Orders: Orders Ferritin 3 Months D50.9 - Iron deficiency anemia, unspecified, E55.9 - Vitamin D deficiency, unspecified Vitamin D 25-OH Total 3 Months D50.9 - Iron deficiency anemia, unspecified, E55.9 - Vitamin D deficiency, unspecified Complete Blood Count no Diff 3 Months D50.9 - Iron deficiency anemia, unspecified, E55.9 - Vitamin D deficiency, unspecified IRON PROFILE 3 Months D50.9 - Iron deficiency anemia, unspecified, E55.9 - Vitamin D deficiency, unspecified Medications: New multivitamin with iron 1 tab PO DAILY 90 tabs 0RF Changed From cholecalciferol (vitamin D3) 50 mcg PO DAILY 30 days 30 caps 3RF To cholecalciferol (vitamin D3) 50 mcg PO DAILY 90 days 90 caps 3RF
--- OUTSIDE RECORDS SUMMARY | 2024-11-03 16:31 | XMS_ITS | Data Portability ---
Author Organization [place] - [facility], [facility] Address [address] [place] [address] Assessment Encounter Date Assessment Date Assessment LastModified by Organization Details LastModified Time 02/26/2018 02/26/2018 ABDOMINAL PAIN-- Resolved! Will con't healthy eating and not skipping meals. Has regained some weight. Recheck if any recurrence, otherwise recheck at this winter. [email or web address] Not available 02/26/2018 12:03:06 07/25/2019 07/25/2019 Nolvia is a 19 y/o here for a wcc today. Nl growth and development. Age appropriate AG given. Follow up in 1 year for WCC. Discussed transition to adult medicine, will give referral today. Needs PPD for [employer]QU[employer]ION[employer] course Will get bexero #1 today Flu [...] completed for season. 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 Gets STI testing yearly though turret lathe machinist, will defer today. Lactose intolerance - avoids milk, will take calcium supplement Not available 09/09/2020 21:22:01 Plan of Treatment Reminders Order Date Submit Date Provider Last Modified By Organization Details Last Modified Time Details Appointments None recorded. Lab PPD (purified protein derivative) , skin test 2018 019 [facility], [address] [place] [address], [phone], 9 10:06:23 lipid panel, blood 2018 019 [facility], [address] [place] [address], [phone], 9 11:06:11 rapid strep group A, throat 2018 019 [facility], [address] [place] [address], [phone], 9 09:49:42 culture, throat 2018 019 [facility], [address] [place] [address], [phone], 9 09:49:42 Referral internal medicine referral 2020 [...] DP PULSES BILAT. GOOD CAP RETURN. 2017 [facility], [address], [place], [address], 8 16:33:08 Medication Orders Tubersol 5 tub. unit/0.1 mL intradermal injection solution 2018 019 [email or web address] Not available 1 14:23:42 amoxicillin 500 mg capsule 2018 [email or web address] 0 [id number], [address] [facility], [place], [address], 10:17:23 Patient TargetsNo targets recorded. Patient Instructions Encounter Date Encounter Id Patient Instructions Last Modified By Organization Details Last Modified Time 06/07/2018 [id number] WILL REF TO ER T O R/O DVT. IF NEG, WILL USE HEAT/ALLEVE 330 BID FOR 5 DAYS/GENTLE MASSAGE/CRUTCHES WITH PROGRESSIVE WT BEARING. [email or web address] Not available 06/07/2018 15:26:58 09/18/2018 [id number] SX CARE [email or web address] Not available 09/18 09:49:49 07/25/2019 [id number] program - 5 fruits & veggies Not available 07/25/2019 10:49:38 5210 program - 1 hour of exercise Not available 07/25/2019 10:49:38 patient health questionnaire depression assessment* Not available 07/25/2019 10:49:38 immunization: wh at you need to know Not available 07/25/2019 10:49:38 09/09/2020 [id number] program - 5 fruits & veggies Not [...] Abnormal Flag Note LastModifiedBy Organization Detail LastModifiedTime 09/08/1909/09/2020 patie nt healt h quest ionna angelia depre ssion asses sment * PHQ-9 negati ve Not Available [facility] [address] [place] [address], DEEPA Perez, [phone], 09/08/2020 16:02:50 07/25/20 19 07/25/2019 patie nt healt h quest ionna angelia depre ssion asses sment * PHQ-9 negati ve Not Available [facility] [address] [place] [address], [phone], 07/25/2019 08:10:01 09/18/19 19 09/18/2018 cultu re, throa t Result 24 HR negati ve Not Available [facility] [address] [place] [address], [phone], 09/18/2018 09:34:32 09/18/19 19 09/18/2018 cultu re, throa t Result 48 HR negati ve Not Available [facility] [address] [place] [address], [phone], 09/18/2018 09:34:32 09/18/19 19 09/18/2018 rapid strep group A, throa t Rapid Strep negati ve Not Available [facility] [address] [place] [address], [phone], 09/18/2018 09:34:31 07/27/20 19 07/27/2019 PPD (joseph fied prote in deriv ative ), skin test Result negati ve Not Available [facility] [address] [place] [address], [phone], 07/25/2019 08:18:10 07/27/20 19 07/27/2019 PPD (joseph fied prote in deriv ative ), skin test Induration mm 0mm Zane d , Read by Arnold judge, HARVINDER Not Available [facility] [address] [place] [address], [phone], 07/25/2019 08:18:10 01/21/20 21 01/20/2021 PPD (joseph fied prote in deriv ative ), skin test Result negati ve Not Available [facility] [address] [place], [address], 01/18/2021 10:32:51 01/21/20 21 01/20/2021 PPD (joseph fied prote in deriv ative ), skin test Induration mm 0 Not Available [facility] [address] [place], [address], 01/18/2021 10:32:51 06/07/20 18 US, lower leg No observ ation record ed. [email or web address] [facility] [address], [place], [address], 06/07/2018 17:52:11 06/07/20 18 06/07/2018 US, lower leg No observ ation record ed. [email or web address] Not Available 2017 17:52:37 Result Notes None recorded. Problems Name Problem SNOMED Code Status Onset Date Resolution Date Notes Provider Name and Address Organization Details Recorded Time Anxiety 38606360 Active Alyx damon MA [facility] 5 15:33:21 Vomiting 756952567 Completed 04/27/2014 Alyx damon MA [facility] 4 14:29:21 Pain in throat 330728860 Completed 07/10/2011 Not Available [facility] 3 03:03:10 Acute upper respirator y infection 13333524 Completed 200607/10/2011 Not Available [facility] 3 03:01:20 Otitis media 78555002 Completed 200707/10/2011 Not Available [facility] 3 03:01:20 Viral disease 48782374 Completed 09/29/2011 Not Available [facility] 3 03:01:20 Viral disease 94337651 Completed 07/10/2011 Not Available [facility] 3 03:01:20 Acute conjunctiv itis 63562334 Completed 200607/10/2011 Not Available [facility] 3 03:01:20 Acute pharyngiti s 848350529 Completed 200607/10/2011 Not Available [facility] 3 03:01:20 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 Procedures Surgical History None recorded. Imaging Results Imaging Date Name Status LastModified by Organiz ation Details LastModified Time 06/07/2018 US, lower leg completed [email or web address] [facility] [address], [place], [address], 06/07/2018 17:52:11 06/07/2018 US, lower leg completed [...] -homatropin e 5 mg-1.5 mg/5 mL oral solution TAKE 1/2 TO 3/4 TEASPOONF UL EVERY [...] 9 161.92 cm 41 % 20.9 kg/m2 00004.6 8 g 122 mm[Hg] 70 mm[Hg] Janee Flood [facility] 9 10:24:50 Date Recorded Body height Body mass index (BMI) Body mass index (BMI) Percentile per age and sex Body weight Systolic blood pressure Diastolic blood pressure Provider Name and Address Organization Details Last Updated DateTime 1 161.92 cm 23.5 kg/m2 68 % 52393.8 4 g 120 mm[Hg] 60 mm[Hg] Sandy Perales [facility] 1 14:22:58 Date Recorded Body weight Provider Name an d Address Organization Details Last Updated DateTime 02/26/2018 15794.97 g Carol Fisher L.P.N. [facility] 02/26/2018 11:35:13 Date Recorded Body weight Body temperature Provider N veronika and Address Organization Details Last Updated DateTime 09/18/2018 59523.47 g 98.2 [degF] Dottie Martin L.P.N [facility] 09/18/2018 09:30:39 Social History Question Answer Notes LastModified by Organizat ion Details LastModified Time Tobacco Smoking Status Never Smoker Calos Garcia, [facility] 04/27/2014 14:09:40 Have There Been Any [...] 105 Information not available 06/03/2011 Siblings OLI (Rae) 03/01/04 DBA_PATCH_ 105 Information not available 06/03/2011 Year In School College [employer] [facility] - Radiologist David Information not available 07/25/2019 Parent's Name GINA [...] and Address Organization Details Recorded Time Novel Leohtybag-[id number], nasal 9 completed Not Available [facility] 08/16/2019 02:34:48 Hib, unspecified formulation 1 completed Not Available [facility] 06/03/2011 03:19:20 IPV 5 completed Not Available [facility] 06/03/2011 03:18:24 DTaP, unspecified formulation 1 completed Not Available [facility] 06/03/2011 03:18:24 pneumococcal conjugate PCV 7 0 completed Not Available [facility] 06/03/2011 03:18:24 DTaP, unspecified formulation 1 completed Not Available [facility] 06/03/2011 03:19:20 pneumococcal conjugate PCV 7 1 completed Not Available [facility] 06/03/2011 03:18:24 DTaP, unspecified formulation 0 completed Not Available [facility] 06/03/2011 03:18:24 Hep B, unspecified formulation 1 completed Not Available [facility] 06/03/2011 03:18:24 Hib, unspecified formulation 2 completed Not Available [facility] 06/03/2011 03:18:24 IPV 2 completed Not Available [facility] 06/03/2011 03:19:20 DTaP, unspecified formulation 2 completed Not Available [facility] 06/03/2011 03:18:24 MMR 4 completed Not Available [facility] 06/03/2011 03:18:24 Hib, unspecified formulation 1 completed Not Available [facility] 06/03/2011 03:18:24 Hep B, unspecified formulation 0 completed Not Available [facility] 06/03/2011 03:19:20 Hep B, unspecified formulation 0 completed Not Available [facility] 06/03/2011 03:18:24 pneumococcal conjugate PCV 7 1 completed Not Available [facility] 06/03/2011 03:18:24 MMR 2 completed Not Available [facility] 06/03/2011 03:18:24 IPV 0 completed Not Available [facility] 06/03/2011 03:19:20 pneumococcal conjugate PCV 7 1 completed Not Available [facility] 06/03/2011 03:18:24 Hib, unspecified formulation 0 completed Not Available [facility] 06/03/2011 03:18:24 IPV 1 completed Not Available [facility] 06/03/2011 03:18:24 Influenza, split virus, trivalent, preservative 1 completed Not Available [facility] 08/16/2019 02:35:18 meningococcal MCV4P 1 completed Not Available [facility] 08/16/2019 02:33:28 Tdap 1 completed Not Available [facility] 08/16/2019 02:33:37 HPV, quadrivalent 1 completed Not Available [facility] 08/16/2019 02:33:59 Influenza, split virus, trivalent, preservative 9 completed Not Available [facility] 08/16/2019 02:34:44 Influenza, live, quadrivalent, intranasal 3 completed Not Available [facility] 08/16/2019 02:35:32 HPV, quadrivalent 3 completed Not Available [facility] 08/16/2019 02:34:09 influenza, unspecified formulation 8 completed Not Available [facility] 06/03/2011 03:16:44 influenza, unspecified formulation 8 completed Not Available [facility] 06/03/2011 03:16:44 Influenza, live, quadrivalent, intranasal 4 completed Not Available [facility] 08/16/2019 02:35:49 HPV, quadrivalent 4 completed Not Available [facility] 08/16/2019 02:34:14 Influenza, live, quadrivalent, intranasal 5 completed Not Available [facility] 08/16/2019 02:36:17 influenza, unspecified formulation 7 completed Calos Blackwood [facility] 07/09/2017 13:59:34 meningococcal MCV4P 6 completed Not Available [facility] 08/16/2019 02:37:13 Influenza, split virus, quadrivalent, PF 6 completed Not Available [facility] 08/16/2019 02:37:11 Td (adult), 5 Lf tetanus toxoid, preservative free, adsorbed 7 completed Not Available [facility] 08/16/2019 02:38:29 Influenza, split virus, quadrivalent, preservative 9 completed Calos Garcia [facility] 07/02/2019 12:23:16 Influenza, split virus, quadrivalent, preservative 0 completed Radha Pierre R.N. [facility] 05/03/2020 08:58:50 meningococcal B, OMV 9 completed Not Available [facility] 08/16/2019 02:39:39 meningococcal B, OMV 0 completed Carol Fisher L.P.N. [facility] 09/03/2019 11:14:45 Hep A, adult 1 completed Sandy Perales [facility] 09/09/2020 15:03:53 DTaP, unspecified formulation 5 completed Not Available [facility] 06/03/2011 03:17:07 varicella 1 completed Not Available [facility] 06/03/2011 03:17:07 influenza, unspecified formulation 7 completed Not Available [facility] 06/03/2011 03:16:44 varicella 7 completed Not Available [facility] 06/03/2011 03:16:44 Influenza, split virus, trivalent, preservative 0 completed Not Available [facility] 08/16/2019 02:35:07 Past Encounters Encounter ID Performer Location Encounter Start Date Encounter Closed Date Diagnosis/Indication Diagnosis SNOMED-CT Code Diagnosis ICD10 Code Diagnosis Note [id number] [address] 05/27/2007 14:41:47 05/27/2007 15:32:[id number] [address] 06/28/2007 09:43:21 06/28/2007 11:29:[id number] [address] 07/04/2007 16:13:29 07/04/2007 16:55:[id number] [address] 10/28/2007 17:04:44 10/28/2007 17:06:[id number] [address] 06/04/2008 14:44:20 06/04/2008 16:01:[id number] [place] [address] 07/02/2008 15:13:36 07/02/2008 15:23:21 [id number] [place] [id number] 07/31/2008 12:04:16 07/31/2008 12:31:00 [id number] [place] [id number] 08/28/2008 15:12:48 08/28/2008 16:24:20 [id number] [place] [id number] 01/25/2009 09:20:02 01/25/2009 10:27:40 [id number] [place] [id number] 06/30/2009 15:12:17 06/30/2009 16:20:43 [id number] PVP [address] [id number] 09/30/2009 16:34:41 09/30/2009 17:36:03 [id number] PVP [address] [id number] 06/16/2010 15:05:20 06/16/2010 17:05:14 [id number] PVP Inge w [address] [place] [address] [place] [id number] 09/24/2010 10:53:36 09/24/2010 11:33:57 [id number] PVP [address] [id number] 10/27/2010 13:44:37 10/27/2010 15:01:46 [id number] PVP [address] [id number] 11/08/2010 08:57:08 11/08/2010 09:45:36 [id number] PVP [address] [id number] 07/10/2011 15:55:46 07/10/2011 17:49:29 [id number] PVP [address] [id number] 07/27/2011 13:21:44 07/27/2011 14:19:31 [id number] PVP Rickymeado w [address] [place] [address] [place] [id number] 09/17/2011 10:46:21 09/17/2011 11:34:15 [id number] [place] [address] 2 09/29/2011 13:23:54 09/29/2011 14:26:34 [id number] Roland Wells MD [place] [address] 2 04/25/2013 15:07:19 04/25/2013 16:58:43 Well child 735065152 Developmen chula academic disorder 0176190 Anxiety 49336709 [id number] Radha Pierre R.N. [place] [address] 2 03/27/2014 10:07:08 03/27/2014 13:36:16 Anxiety 46942642 [facility] 640374067 [id number] Carlie Fleming [place] [address] 2 04/27/2014 14:01:58 04/27/2014 17:32:39 Well child 003561579 Anxiety 44830346 [id number] Lamar Bailey [place] [address] 2 03/29/2015 14:50:41 03/29/2015 17:13:12 Anxiety 68789320 [id number] Gaby Ramirez [place] [address] 2 05/03/2015 16:28:54 05/03/2015 17:18:53 Influenza vaccine needed 7754999687 106 Z23 Anxiety 15616960 F41.9 [id number] Roland Wells MD [place] [address] 2 05/24/2015 14:30:17 05/24/2015 17:31:31 Well child 360568201 Z00.129 Anxiety 06193974 F41.9 much improved with hypnosis [id number] Tiana Shook MD [place] [address] 2 07/06/2015 14:50:24 07/06/2015 16:47:40 Anxiety 69799994 F41.9 much improved with hypnosis [id number] Sharon Richter MD [place] [address] 2 01/25/2016 16:25:19 01/25/2016 17:32:25 Anxiety 12799952 F41.9 [id number] Sharon Richter MD [place] [address] 2 02/21/2016 14:50:27 02/21/2016 16:33:54 Anxiety 15243969 F41.9 [id number] Tiana Shook MD [place] [address] 2 06/13/2016 14:38:48 06/13/2016 16:07:13 Active or passive immunization 301718939 Z23 Well child 370037115 Z00 .129 [id number] Gavino Presley MD [place] [address] 2 11/20/2016 10:20:43 11/20/2016 12:39:31 Cough 12838775 R05 2 weeks of cough. Not responding to azithromyc in as prescribed by urgent care. Suspect viral illness with lingering bronchospa stic cough.Will DC hydromorph one, do trial of albuterol to see if this provides symptomati c relief.Rec heck if no improvemen t by the end of the week. [id number] Roland Wells MD [place] [address] 2 07/09/2017 13:53:33 07/10/2017 08:20:40 Well child 162170650 Z00.129 Unintentio nal weight loss 235186933 R63.4 Anxiety 56795263 F41.9 much improved since hypnosis - uses strategies that she learned [id number] Tiana Shook MD [place] [address] 10/04/2017 11:03:23 10/04/2017 12:05:30 Concussion injury of brain 636659868 S06.0X0A [id number] Tiana Shook MD [place] [id number] 12/20/2017 16:21:23 12/21/2017 13:22:22 Abdominal pain 27259241 R10.9 [id number] Tiana Shook MD [address] 2 02/26/2018 11:26:46 02/26/2018 12:12:57 Abdominal pain 24399224 R10.9 [id number] Roland Wells MD [place] [address] 2 06/07/2018 14:17:59 06/07/2018 15:48:36 Muscle pain 76350849 M79.10 Pain in ri ght lower limb 961371844 M79.604 [id number] Roland Wells MD [place] [address] 2 09/18/2018 09:26:29 09/18/2018 09:54:04 Acute pharyngitis 371715888 J02.9 Acute fron chula sinusitis 73498503 J01.10 [id number] CYNTHIA PHILLIPS [place] [address] 2 07/25/2019 10:00:57 07/25/2019 13:04:21 Active or passive immunization 332852551 Z23 Adult [facility] th examination 521759725 Z00.00 Normal bod y mass index 28979764 Z68.20 Tuberculos is screening 113759295 Z11.1 Acquired l actase deficiency 66467845 E73.1 [id number] CYNTHIA PHILLIPS [place] [address] 2 09/09/2020 14:16:53 09/10/2020 08:12:56 Diet education 65726279 Z71.3 Exercises education, guidance, and counseling 877332460 Z71.82 Normal bod y mass index 73224319 Z68.23 Adult [facility] th examination 832139728 Z00.00 Active or passive immunization 144767071 Z23 Health Concerns Section Related Observation LastModified by Organization Detai ls LastModified Time None Recorded Concern Status LastModified by Organization Details LastModified Time None Recorded Advance Directives Directive None Recorded Payers Encounter Date Sequence Insurance Name Policy Number Policy Rose Covered Member ID Rose Member ID Guarantor Name 02/26/2018 1 [place] [id number] Sachi Parmar Jr [id number] Sachi Parmar 06/07/2018 1 [place] [id number] Sachi Parmar Jr [id number] Sachi Parmar 09/18/2018 1 [place] [id number] Sachi Parmar Jr [id number] Sachi Parmar 07/25/2019 1 [place] [id number] Sachi Parmar Jr [id number] Sachi Parmar 09/09/2020 1 [place] [id number] Sachi Parmar Jr [id number] Sachi Parmar 09/09/2020 1 [place] [id number] Sachi Parmar Jr [id number] Sachi Parmar Notes Date Note Type Note [...] rash.Labs were all nl. Tiana Shook MD [address] [place] [address], [phone], [facility] 02/26/2018 12:03:09 06/07/2018 text/html [...] WITH CERTAIN MOVEMENT. Roland Wells MD [address] [place], [place], , [facility] 06/07/2018 15:33:33 09/18/2018 text/html [...] PAST 4-5 DAYS. Roland Wells MD [address] [place], [place], , [facility] 09/18/2018 09:50:09 07/25/2019 text/html pt complains of experiencing diarrhea when consuming milkNo issues with cheese, doesnt really eat yogurtSometimes issues with ice creamdrinking almond milk [facility] 07/25/[facility] 12:34:50 OBGyn Episode No OBEpisode recorded.
--- OUTSIDE RECORDS SUMMARY | 2024-11-03 16:31 | XMS_ITS | Clinical Summary ---
Author Organization [facility] ity Address [address] [place] [address] Care Team Providers Care Director Economic Name Role Phone Unavailable Primary Care Provider Unavailabl e Social History Tobacco Use Types Packs/Day Years Used Date Smoking Tobacco: Never Assessed Comments Unknown Sex and Gender Information Value Date Recorded Sex Assigned at Not on file Legal Sex Female 8:47 PM EST Gender Identity Not on file Sexual Orientation Not on file Plan of Treatment Health Maintenance Due Date Last Done Comments Gonorrhea/Chlamydia Screening 2000 HPV Vaccines (1 - 3-dose series) 2015 DTaP,Tdap,and Td Vaccines (1 - Tdap) 2019 Hepatitis B Vaccines (1 of 3 - 19+ 3-dose series) 2019 Cervical Cancer Screening: P ap Smear 2021 Depression Screening 02/26/2024 HIV Screening 02/26/2024 Hepatitis C Screening 02/26/2024 Social Influencers of Health Screening 02/26/2024 COVID-19 Vaccine (2023-2 5 season) 2024 Influenza Vaccine (#1) 2024 HIB Vaccines Aged Out No longer eligi ble based on patient's age to complete this topic Hepatitis A Vaccines Aged Out No long er eligible based on patient's age to complete this topic IPV Vaccines Aged Out No longer eligi ble based on patient's age to complete this topic MMR Vaccines Aged Out No longer eligi ble based on patient's age to complete this topic Meningococcal ACWY Vaccine Aged Out N o longer eligible based on patient's age to complete this topic Meningococcal B Vaccine Aged Out No l onger eligible based on patient's age to complete this topic Pneumococcal Vaccine: Pediat rics (0 to 5 Years) and At-Risk Patients (6 to 64 Years) Aged Out No longer eligible b ased on patient's age to complete this topic RSV Immunization Patients Un damian 20 months Aged Out No longer eligible b ased on patient's age to complete this topic Varicella Vaccines Aged Out No longer eligible based on patient's age to complete this topic
--- OUTSIDE RECORDS SUMMARY | 2024-11-03 16:31 | XMS_ITS | Clinical Summary ---
Author Organization [facility] Address [address] [place] [address] Care Team Providers Care Petroleum Laboratory Technician Name Role Phone Unavailable Primary Care Provider Unavailabl e Social History Tobacco Use Types Packs/Day Years Used Date Smoking Tobacco: Never Assessed Sex and Gender Information Value Date Recorded Sex Assigned at Not on file Gender Identity Not on file Sexual Orientation Not on file Plan of Treatment Health Maintenance Due Date Last Done Comments Hepatitis B Vaccines (1 of 3 - 3-dose series) 2000 Hepatitis C Screening 2000 COVID-19 Vaccine (#1) 2000 Depression Screening 2012 Gonorrhea and Chlamydia Screening 2013 Preventative Health Evaluation 2018 DTap / Tdap / Td (1 - Tdap) 2019 Cervical Cancer Screening (P ap Smear) 2021 Influenza Vaccine (#1) 2024 Pneumococcal Vaccine Aged Out No long er eligible based on patient's age to complete this topic RSV Ped < 20 months Aged Out No longe r eligible based on patient's age to complete this topic
== END 2024-11-03 16:57 | disposition home or self-care (01) ==
LOC: HO.HMCFM 13:48
PROVIDERS: PCP Family Medicine; Visit Provider Nurse Practitioner Family
DX: E55.9 Vitamin D deficiency, unspecified (principal); D50.9 Iron deficiency anemia, unspecified; R23.3 Spontaneous ecchymoses; R06.02 Shortness of breath

== ENCOUNTER → 2024-11-03 13:48 | Outpatient (BNVA) | payer OTHER, SELFPAY | PROVIDERS: PCP Family Medicine; Visit Provider Nurse Practitioner Family | DX: E55.9 Vitamin D deficiency, unspecified (principal); D50.9 Iron deficiency anemia, unspecified; R23.3 Spontaneous ecchymoses; R06.02 Shortness of breath | CPT/HCPCS: 98967 ==

== ENCOUNTER 2024-11-27 07:52 | Outpatient (REF) | payer OTHER, SELFPAY ==
--- OUTSIDE RECORDS SUMMARY | 2024-11-27 07:56 | XMS_ITS | Clinical Summary ---
Author Organization [facility] ity Address [address] [place] [address] Care Team Providers Care Assistant Loan Processor Name Role Phone Unavailable Primary Care Provider [...] Vaccine (2023-2 5 season) 2024 Influenza Vaccine (Season Ended) 2025 HIB Vaccines Aged Out No longer eligi [...]
--- OUTSIDE RECORDS SUMMARY | 2024-11-27 07:56 | XMS_ITS | Clinical Summary ---
Author Organization [employer] [facility] Address [address] [place] [address] Care Team Providers Care Utility Supervisor Boat [employer] Name Role Phone Unavailable Primary Care Provider [...]
--- OUTSIDE RECORDS SUMMARY | 2024-11-27 07:56 | XMS_ITS | Data Portability ---
Author Organization [place] - [facility], [facility] Address [address] [place] [address] Assessment Encounter Date Assessment Date Assessment LastModified by Organization Details LastModified Time 02/26/2018 02/26/2018 ABDOMINAL PAIN-- Resolved! Will con't healthy eating and not skipping meals. Has regained some weight. Recheck if any recurrence, otherwise recheck at this winter. [email or web address] Not available 02/26/2018 12:03:06 07/25/2019 07/25/2019 Nolvia is a 19 y/o here for a wcc today. Nl growth and development. Age appropriate AG given. Follow up in 1 year for WCC. Discussed transition to adult medicine, will give referral today. 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 On OCP, follows w director power. Gets STI testing yearly though director power, will defer today. Lactose intolerance - avoids milk, will take calcium supplement Not available 09/09/2020 21:22:01 Plan of Treatment Reminders Order Date Submit Date Provider Last Modified By Organization Details Last Modified Time Details Appointments None recorded. Lab PPD (purified protein derivative) , skin test 2018 019 [facility], [address] [place] [address], [id number], 9 10:06:23 lipid panel, blood 2018 019 [facility], [address] [place] [address], [id number], 9 11:06:11 rapid strep group A, throat 2018 019 [facility], [address] [place] [address], [id number], 9 09:49:42 culture, throat 2018 019 [facility], [address] [place] [address], [id number], 9 09:49:42 Referral internal medicine referral 2020 [...] DP PULSES BILAT. GOOD CAP RETURN. 2017 [facility], [address], [place], [address], 8 16:33:08 Medication Orders Tubersol 5 tub. unit/0.1 mL intradermal injection solution 2018 019 [email or web address] Not available 1 14:23:42 amoxicillin 500 mg capsule 2018 [email or web address] 0 [facility], [address], [place], [address], 10:17:23 Patient TargetsNo targets recorded. Patient Instructions Encounter Date Encounter Id Patient Instructions Last Modified By Organization Details Last Modified Time 06/07/2018 [id number] WILL REF TO ER T O R/O DVT. IF NEG, WILL USE HEAT/ALLEVE 330 BID FOR 5 DAYS/GENTLE MASSAGE/CRUTCHES WITH PROGRESSIVE WT BEARING. [email or web address] Not available 06/07/2018 15:26:58 09/18/2018 [id number] SX CARE [email or web address] Not available 09/18 09:49:49 07/25/2019 [id number] program - 5 fruits & veggies Not available 07/25/2019 10:49:38 5210 program - 1 hour of exercise Not available 07/25/2019 10:49:38 patient health questionnaire depression assessment* Not available 07/25/2019 10:49:38 immunization: wh at you need to know Not available 07/25/2019 10:49:38 09/09/2020 [id number] 0416 program - 5 fruits & veggies Not [...] sment * PHQ-9 negati ve Not Available [facility] [address] [place] [address], DEEPA Perez, [address], 09/08/2020 16:02:50 07/25/20 19 07/25/2019 patie nt healt h quest ionna angelia depre ssion asses sment * PHQ-9 negati ve Not Available [facility] [address] [place] [address], [phone], 07/25/2019 08:10:01 09/18/19 19 09/18/2018 cultu re, throa t Result 24 HR negati ve Not Available [facility] [address] [place] [address], [id number], 09/18/2018 09:34:32 09/18/19 19 09/18/2018 cultu re, throa t Result 48 HR negati ve Not Available [facility] [address] [place] [address], [id number], 09/18/2018 09:34:32 09/18/19 19 09/18/2018 rapid strep group A, throa t Rapid Strep negati ve Not Available [facility] [address] [place] [address], [address], 09/18/2018 09:34:31 07/27/20 19 07/27/2019 PPD (joseph fied prote in deriv ative ), skin test Result negati ve Not Available [facility] [address] [place] [address], [id number], 07/25/2019 08:18:10 07/27/20 19 07/27/2019 PPD (joseph fied prote in deriv ative ), skin test Induration mm 0mm Zane d , Read by Arnold judge, HARVINDER Not Available [facility] [address] [place] [address], [address], 07/25/2019 08:18:10 01/21/20 21 01/20/2021 PPD (joseph fied prote in deriv ative ), skin test Result negati ve Not Available [facility] [address] [place], [address], 01/18/2021 10:32:51 01/21/20 21 01/20/2021 PPD (joseph fied prote in deriv ative ), skin test Induration mm 0 Not Available [facility] [address] [place], [address], 01/18/2021 10:32:51 06/07/20 18 US, lower leg No observ ation record ed. [email or web address] [facility] [address], [place], [address], 06/07/2018 17:52:11 06/07/20 18 06/07/2018 US, lower leg No observ ation record ed. [email or web address] Not Available 2017 17:52:37 Result Notes None recorded. Problems Name Problem SNOMED Code Status Onset Date Resolution Date Notes Provider Name and Address Organization Details Recorded Time Anxiety 27800204 Active Alyx damon [place] [facility] 5 15:33:21 Vomiting 375826561 Completed 04/27/2014 Alyx damon [place] [facility] 4 14:29:21 Pain in throat 571363293 Completed 07/10/2011 Not Available [facility] 3 03:03:10 Acute upper respirator y infection 86638108 Completed 200607/10/2011 Not Available [facility] 3 03:01:20 Otitis media 18477279 Completed 200707/10/2011 Not Available [facility] 3 03:01:20 Viral disease 32656157 Completed 09/29/2011 Not Available [facility] 3 03:01:20 Viral disease 69905345 Completed 07/10/2011 Not Available [facility] 3 03:01:20 Acute conjunctiv itis 48779065 Completed 200607/10/2011 Not Available [facility] 3 03:01:20 Acute pharyngiti s 205145614 Completed 200607/10/2011 Not Available [facility] 3 03:01:20 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 Procedures Surgical History None recorded. Imaging Results Imaging Date Name Status LastModified by Organiz ation Details LastModified Time 06/07/2018 US, lower leg completed [email or web address] [facility] [address], [place], [address], 06/07/2018 17:52:11 06/07/2018 US, lower leg completed [...] Recorded Body height Body mass index (BMI) [Percentile] Per age and sex Body mass index (BMI) Body weight Systolic blood pressure Diastolic blood pressure Provider Name and Address Organization Details Last Updated DateTime 9 161.92 cm 41 % 20.9 kg/m2 45660.6 8 g 122 mm[Hg] 70 mm[Hg] Janee Flood [facility] 9 10:24:50 Date Recorded Body height Body mass index (BMI) Body mass index (BMI) [Percentile] Per age and sex Body weight Systolic blood pressure Diastolic blood pressure Provider Name and Address Organization Details Last Updated DateTime 1 161.92 cm 23.5 kg/m2 68 % 05667.8 4 g 120 mm[Hg] 60 mm[Hg] Sandy Perales [facility] 1 14:22:58 Date Recorded Body weight Provider Name an d Address Organization Details Last Updated DateTime 02/26/2018 09959.97 g Carol Fisher L.P.N. [facility] 02/26/2018 11:35:13 Date Recorded Body weight Body temperature Provider N veronika and Address Organization Details Last Updated DateTime 09/18/2018 14298.47 g 98.2 [degF] Dottie Martin L.P.N [facility] 09/18/2018 09:30:39 Social History Question Answer Notes LastModified by Organizat ion Details LastModified Time Tobacco Smoking Status Never Smoker Calos Garcia, [facility] 04/27/2014 14:09:40 Have There Been Any [...] not available 06/03/2011 Year In School College [employer] [facility] [employer] [facility] - Radiologist David [email or web address] Information not available 07/25/2019 Parent's Name GINA [...] and Address Organization Details Recorded Time Novel [id number], nasal 9 completed Not Available [facility] 08/16/2019 02:34:48 Hib, unspecified formulation 1 completed Not Available [facility] 06/03/2011 03:19:20 IPV 5 completed Not Available [facility] 06/03/2011 03:18:24 DTaP, unspecified formulation 1 completed Not Available [facility] 06/03/2011 03:18:24 pneumococcal conjugate PCV 7 12/22/200 0 completed Not Available [facility] 06/03/2011 03:18:24 DTaP, unspecified formulation 1 completed Not Available [facility] 06/03/2011 03:19:20 pneumococcal conjugate PCV 7 1 completed Not Available [facility] 06/03/2011 03:18:24 DTaP, unspecified formulation 0 completed Not Available [facility] 06/03/2011 03:18:24 Hep B, unspecified formulation 1 completed Not Available [facility] 06/03/2011 03:18:24 Hib, unspecified formulation 2 completed Not Available [facility] 06/03/2011 03:18:24 IPV 2 completed Not Available [facility] 06/03/2011 03:19:20 DTaP, unspecified formulation 2 completed Not Available [facility] 06/03/2011 03:18:24 MMR 4 completed Not Available [facility] 06/03/2011 03:18:24 Hib, unspecified formulation 1 completed Not Available [facility] 06/03/2011 03:18:24 Hep B, unspecified formulation 0 completed Not Available [facility] 06/03/2011 03:19:20 Hep B, unspecified formulation 0 completed Not Available [facility] 06/03/2011 03:18:24 pneumococcal conjugate PCV 7 1 completed Not Available [facility] 06/03/2011 03:18:24 MMR 2 completed Not Available [facility] 06/03/2011 03:18:24 IPV 0 completed Not Available [facility] 06/03/2011 03:19:20 pneumococcal conjugate PCV 7 1 completed Not Available [facility] 06/03/2011 03:18:24 Hib, unspecified formulation 0 completed Not Available [facility] 06/03/2011 03:18:24 IPV 1 completed Not Available [facility] 06/03/2011 03:18:24 Influenza, split virus, trivalent, preservative 1 completed Not Available [facility] 08/16/2019 02:35:18 meningococcal MCV4P 1 completed Not Available [facility] 08/16/2019 02:33:28 Tdap 1 completed Not Available [facility] 08/16/2019 02:33:37 HPV, quadrivalent 1 completed Not Available [facility] 08/16/2019 02:33:59 Influenza, split virus, trivalent, preservative 9 completed Not Available [facility] 08/16/2019 02:34:44 Influenza, live, quadrivalent, intranasal 3 completed Not Available [facility] 08/16/2019 02:35:32 HPV, quadrivalent 3 completed Not Available [facility] 08/16/2019 02:34:09 influenza, unspecified formulation 8 completed Not Available [facility] 06/03/2011 03:16:44 influenza, unspecified formulation 8 completed Not Available [facility] 06/03/2011 03:16:44 Influenza, live, quadrivalent, intranasal 4 completed Not Available [facility] 08/16/2019 02:35:49 HPV, quadrivalent 4 completed Not Available [facility] 08/16/2019 02:34:14 Influenza, live, quadrivalent, intranasal 5 completed Not Available [facility] 08/16/2019 02:36:17 influenza, unspecified formulation 7 completed Calos Blackwood [facility] 07/09/2017 13:59:34 meningococcal MCV4P 6 completed Not Available [facility] 08/16/2019 02:37:13 Influenza, split virus, quadrivalent, PF 6 completed Not Available [facility] 08/16/2019 02:37:11 Td (adult), 5 Lf tetanus toxoid, preservative free, adsorbed 7 completed Not Available [facility] 08/16/2019 02:38:29 Influenza, split virus, quadrivalent, preservative 9 completed Calos Garcia [facility] 07/02/2019 12:23:16 Influenza, split virus, quadrivalent, preservative 0 completed Radha Pierre R.N. [facility] 05/03/2020 08:58:50 meningococcal B, OMV 9 completed Not Available [facility] 08/16/2019 02:39:39 meningococcal B, OMV 0 completed Carol Fisher L.P.N. [facility] 09/03/2019 11:14:45 Hep A, adult 1 completed Sandy Perales [facility] 09/09/2020 15:03:53 DTaP, unspecified formulation 5 completed Not Available [facility] 06/03/2011 03:17:07 varicella 1 completed Not Available [facility] 06/03/2011 03:17:07 influenza, unspecified formulation 7 completed Not Available [facility] 06/03/2011 03:16:44 varicella 7 completed Not Available [facility] 06/03/2011 03:16:44 Influenza, split virus, trivalent, preservative 0 completed Not Available [facility] 08/16/2019 02:35:07 Past Encounters Encounter ID Performer Location Encounter Start Date Encounter Closed Date Diagnosis/Indication Diagnosis SNOMED-CT Code Diagnosis ICD10 Code Diagnosis Note [id number] Roland Wells MD [place] [address] 05/27/2007 14:41:47 05/27/2007 15:32:17 [id number] Roland Wells MD [place] [address] 2 06/28/2007 09:43:21 06/28/2007 11:29:14 [id number] Roland Wells MD [place] [address] 2 07/04/2007 16:13:29 07/04/2007 16:55:27 [id number] Alyx Santo PNP, BILLET EXAMINER, PhD [place] [address] 2 10/28/2007 17:04:44 10/28/2007 17:06:26 [id number] Roland Wells MD PVP [place] [id number] 2 06/04/2008 14:44:20 06/04/2008 16:01:20 [id number] KONRAD WORLEY PVP [place] [address] 2 07/02/2008 15:13:36 07/02/2008 15:23:21 [id number] Roland Wells MD PVP [place] [address] 2 07/31/2008 12:04:16 07/31/2008 12:31:00 [id number] Sharon Richter MD PVP [place] [address] 08/28/2008 15:12:48 08/28/2008 16:24:20 [id number] Roland Wells MD PVP [place] [address] 01/25/2009 09:20:02 01/25/2009 10:27:40 [id number] Roland Wells MD PVP [place] [address] 2 06/30/2009 15:12:17 06/30/2009 16:20:43 [id number] Tiana Shook MD PVP [place] [address] 09/30/2009 16:34:41 09/30/2009 17:36:03 [id number] Roland Wells MD PVP [place] [address] 2 06/16/2010 15:05:20 06/16/2010 17:05:14 [id number] Nicol Ham MD [address] [address] 09/24/2010 10:53:36 09/24/2010 11:33:57 [id number] Donita Kebede MD PVP [place] [address] 2 10/27/2010 13:44:37 10/27/2010 15:01:46 [id number] Tiana Shook MD PVP [place] [id number] 11/08/2010 08:57:08 11/08/2010 09:45:36 [id number] Roland Wells MD [place] [address] 2 07/10/2011 15:55:46 07/10/2011 17:49:29 [id number] Roland Wells MD [place] [address] 2 07/27/2011 13:21:44 07/27/2011 14:19:31 [id number] Roland Saenz MD [address] [place] [address] 09/17/2011 10:46:21 09/17/2011 11:34:15 [id number] Roland Wells MD [place] [address] 2 09/29/2011 13:23:54 09/29/2011 14:26:34 [id number] Roland Wells MD [place] [address] 2 04/25/2013 15:07:19 04/25/2013 16:58:43 Well child 427670391 Developmen chula academic disorder 6522621 Anxiety 99865383 [id number] Roland Wells MD [place] [address] 03/27/2014 10:07:08 03/27/2014 13:36:16 Anxiety 87111279 [facility] [id number] [id number] Alyx GRECO, BILLET EXAMINER, PhD [place] [address] 2 04/27/2014 14:01:58 04/27/2014 17:32:39 Well child 641136249 Anxiety 80163870 [id number] Alyx GRECO, BILLET EXAMINER, PhD [place] [address] 2 03/29/2015 14:50:41 03/29/2015 17:13:12 Anxiety 75907278 [id number] Alyx GRECO, BILLET EXAMINER, PhD [place] [address] 2 05/03/2015 16:28:54 05/03/2015 17:18:53 Influenza vaccine needed 9550008071 106 Z23 Anxiety 92405162 F41.9 [id number] Alyx GRECO, BILLET EXAMINER, PhD [place] [address] 2 05/24/2015 14:30:17 05/24/2015 17:31:31 Well child 484051125 Z00.129 Anxiety 19654335 F41.9 much improved with hypnosis [id number] Alyx GRECO, BILLET EXAMINER, PhD [place] [address] 2 07/06/2015 14:50:24 07/06/2015 16:47:40 Anxiety 18382183 F41.9 much improved with hypnosis [id number] Alyx GRECO, BILLET EXAMINER, PhD [place] [address] 2 01/25/2016 16:25:19 01/25/2016 17:32:25 Anxiety 40046964 F41.9 [id number] Alyx GRECO, BILLET EXAMINER, PhD [place] [address] 2 02/21/2016 14:50:27 02/21/2016 16:33:54 Anxiety 68988794 F41.9 [id number] Alyx GRECO, BILLET EXAMINER, PhD [place] [address] 2 06/13/2016 14:38:48 06/13/2016 16:07:13 Active or passive immunization 596332148 Z23 Well child 674968993 Z00 .129 [id number] Gavino Presley MD [place] [address] 2 11/20/2016 10:20:43 11/20/2016 12:39:31 Cough 79204729 R05 2 weeks of cough. Not responding to azithromyc in as prescribed by urgent care. Suspect viral illness with lingering bronchospa stic cough.Will DC hydromorph one, do trial of albuterol to see if this provides symptomati c relief.Rec heck if no improvemen t by the end of the week. [id number] Alyx GRECO, BILLET EXAMINER, PhD [place] [address] 2 07/09/2017 13:53:33 07/10/2017 08:20:40 Well child 649040579 Z00.129 Unintentio nal weight loss 607322378 R63.4 Anxiety 39774810 F41.9 much improved since hypnosis - uses strategies that she learned [id number] Tiana Shook MD [place] [address] 2 10/04/2017 11:03:23 10/04/2017 12:05:30 Concussion injury of brain 450890778 S06.0X0A [id number] Tiana Shook MD [place] [address] 2 12/20/2017 16:21:23 12/21/2017 13:22:22 Abdominal pain 12804540 R10.9 [id number] Tiana Shook MD [place] [address] 2 02/26/2018 11:26:46 02/26/2018 12:12:57 Abdominal pain 16846914 R10.9 [id number] Roland Wells MD [place] [address] 2 06/07/2018 14:17:59 06/07/2018 15:48:36 Muscle pain 53968854 M79.10 Pain in ri ght lower limb 526216726 M79.604 [id number] Roland Wells MD [place] [address] 2 09/18/2018 09:26:29 09/18/2018 09:54:04 Acute pharyngitis 455963637 J02.9 Acute fron chula sinusitis 49851176 J01.10 [id number] Cynthia Phillips MD [place] [address] 2 07/25/2019 10:00:57 07/25/2019 13:04:21 Active or passive immunization 481969151 Z23 Adult heal th examination 503252490 Z00.00 Normal bod y mass index 09862127 Z68.20 Tuberculos is screening 347462686 Z11.1 Acquired l actase deficiency 93110032 E73.1 [id number] Cynthia Phillips MD [place] [address] 2 09/09/2020 14:16:53 09/10/2020 08:12:56 Diet education 40671452 Z71.3 Exercises education, guidance, and counseling 003158431 Z71.82 Normal bod y mass index 44322326 Z68.23 Adult heal th examination 808146986 Z00.00 Active or passive immunization 697749990 Z23 Health Concerns Section Related Observation LastModified by Organization Detai ls LastModified Time None Recorded Concern Status LastModified by Organization Details LastModified Time None Recorded Advance Directives Directive None Recorded Payers Encounter Date Sequence Insurance Name Policy Number Policy Rose Covered Member ID Rose Member ID Guarantor Name 02/26/2018 1 [place] [id number] Sachi Parmar Jr [id number] Sachi Parmar 06/07/2018 1 [place] [id number] Sachi Ghulam [id number] Sachi Parmar 09/18/2018 1 [place] [id number] Sachi Ghulam [id number] Sachi Parmar 07/25/2019 1 [place] [id number] Sachi Ghulam [id number] Sachi Parmar 09/09/2020 1 [place] [id number] Sachi Ghulam Garzon [id number] 397 Sachi Parmar 09/09/2020 1 [place] [id number] Sachi Parmar Jr [id number] Sachi Parmar Notes Date Note Type [...] rash.Labs were all nl. Tiana Shook MD [address], [place], , [facility] 02/26/2018 12:03:09 06/07/2018 text/html RS Sick [...] WITH CERTAIN MOVEMENT. Roland Wells MD [address], [place], , [facility] 06/07/2018 15:33:33 09/18/2018 text/html RS Sick [...] PAST 4-5 DAYS. Roland Wells MD [address], [place], , [facility] 09/18/2018 09:50:09 07/25/2019 text/html pt complains of experiencing diarrhea when consuming milkNo issues with cheese, doesnt really eat yogurtSometimes issues with ice creamdrinking almond milk CYNTHIA damon, [facility] 07/25/2019 12:34:50 OBGyn Episode No OBEpisode recorded.
--- NOTE | 2024-11-27 07:59 | PFT_ITS ---
Spirometry [] Lung Volumes [] Diffusion Capacity [] Methacholine Challenge [] Flow Volume Loops [] MVV [] MIP/MEP(Max inspiratory pressure/Max expiratory pressure) [] 6 Minute Walk Test [] ABG [] Interpretation [] MTDD
[2024-11-27 08:55] VITALS: PULSE 105; O2SAT 99
== END 2024-11-27 07:53 | disposition home or self-care (01) ==
LOC: HO.RESP 07:52
PROVIDERS: PCP Family Medicine; Visit Provider Nurse Practitioner Family
DX: R06.02 Shortness of breath (principal)
CPT/HCPCS: 94010; 94640; 94727; 94729

== ENCOUNTER → 2024-11-27 07:59 | Outpatient (BNV) | payer OTHER, SELFPAY | PROVIDERS: PCP Family Medicine; Visit Provider Internal Medicine Pulmonary Disease | DX: R06.02 Shortness of breath (principal) | CPT/HCPCS: 94060; 94727; 94729 ==

== ENCOUNTER 2024-12-19 12:05 | Outpatient (AMB) | payer OTHER, SELFPAY ==
--- OUTSIDE RECORDS SUMMARY | 2024-12-19 12:06 | XMS_ITS | Data Portability ---
Author Organization [place] - [facility], [facility] Address [address] [place] [address] Assessment Encounter Date Assessment Date Assessment LastModified by Organization Details LastModified Time 02/26/2018 02/26/2018 ABDOMINAL PAIN-- Resolved! Will con't healthy eating and not skipping meals. Has regained some weight. Recheck if any recurrence, otherwise recheck at this winter. [email or web address] Not available 02/26/2018 12:03:06 07/25/2019 07/25/2019 Nolvia is a 19 y/o here for a wcc today. Nl growth and development. Age appropriate AG given. Follow up in 1 year for WCC. Discussed transition to adult medicine, will give referral today. Needs PPD for MAC ARTIST course Will get bexero #1 today Flu [...] completed for season. On OCP, follows w content writer. Gets STI testing yearly though content writer, will defer today. Lactose intolerance - avoids milk, will take calcium supplement Not available 09/09/2020 21:22:01 Plan of Treatment Reminders Order Date Submit Date Provider Last Modified By Organization Details Last Modified Time Details Appointments None recorded. Lab PPD (purified protein derivative) , skin test 2018 019 [facility], [address] [place] [address], [id number], 9 10:06:23 lipid panel, blood 2018 019 [facility], [address] [place] [address], [address], 9 11:06:11 rapid strep group A, throat 2018 019 [facility], [address] [place] [address], [phone], 9 09:49:42 culture, throat 2018 019 [facility], [address] [place] [address], [phone], 9 09:49:42 Referral internal medicine referral 2020 [...] DP PULSES BILAT. GOOD CAP RETURN. 2017 [facility], [address], [place], [address], 8 16:33:08 Medication Orders Tubersol 5 tub. unit/0.1 mL intradermal injection solution 2018 019 [email or web address] Not available 1 14:23:42 amoxicillin 500 mg capsule 2018 [email or web address] 0 [facility], [address] [facility], [place], [address], 10:17:23 Patient TargetsNo targets recorded. Patient Instructions Encounter Date Encounter Id Patient Instructions Last Modified By Organization Details Last Modified Time 06/07/2018 [id number] WILL REF TO ER T O R/O DVT. IF NEG, WILL USE HEAT/ALLEVE 330 BID FOR 5 DAYS/GENTLE MASSAGE/CRUTCHES WITH PROGRESSIVE WT BEARING. [email or web address] Not available 06/07/2018 15:26:58 09/18/2018 [id number] SX CARE [email or web address] Not available 09/18 09:49:49 07/25/2019 [id number] program - 5 fruits & veggies Not available 07/25/2019 10:49:38 5210 program - 1 hour of exercise Not available 07/25/2019 10:49:38 patient health questionnaire depression assessment* Not available 07/25/2019 10:49:38 immunization: wh at you need to know Not available 07/25/2019 10:49:38 09/09/2020 [id number] program - 5 fruits & veggies Not [...] sment * PHQ-9 negati ve Not Available [facility] [address] [place] [address], [place] Perez, [address], 09/08/2020 16:02:50 07/25/20 19 07/25/2019 patie nt healt h quest ionna angelia depre ssion asses sment * PHQ-9 negati ve Not Available [facility] [address] [place] [address], [phone], 07/25/2019 08:10:01 09/18/19 19 09/18/2018 cultu re, throa t Result 24 HR negati ve Not Available [facility] [address] [place] [address], [address], 09/18/2018 09:34:32 09/18/19 19 09/18/2018 cultu re, throa t Result 48 HR negati ve Not Available [facility] [address] [place] [address], [phone], 09/18/2018 09:34:32 09/18/19 19 09/18/2018 rapid strep group A, throa t Rapid Strep negati ve Not Available [facility] [address] [place] [address], [address], 09/18/2018 09:34:31 07/27/20 19 07/27/2019 PPD (joseph fied prote in deriv ative ), skin test Result negati ve Not Available [facility] [address] [place] [address], [address], 07/25/2019 08:18:10 07/27/20 19 07/27/2019 PPD (joseph fied prote in deriv ative ), skin test Induration mm 0mm Zane d , Read by Arnold judge, HARVINDER Not Available [facility] [address] [place] [address], [address], 07/25/2019 08:18:10 01/21/20 21 01/20/2021 PPD (joseph fied prote in deriv ative ), skin test Result negati ve Not Available [facility] [address] [place], [address], 01/18/2021 10:32:51 01/21/20 21 01/20/2021 PPD (joseph fied prote in deriv ative ), skin test Induration mm 0 Not Available [facility] [address] [place], [address], 01/18/2021 10:32:51 06/07/20 18 US, lower leg No observ ation record ed. [email or web address] [facility] [address], [place], [address], 06/07/2018 17:52:11 06/07/20 18 06/07/2018 US, lower leg No observ ation record ed. [email or web address] Not Available 2017 17:52:37 Result Notes None recorded. Problems Name Problem SNOMED Code Status Onset Date Resolution Date Notes Provider Name and Address Organization Details Recorded Time Anxiety 37099446 Active Alyx damon [place] [facility] 5 15:33:21 Vomiting 470475737 Completed 04/27/2014 Alyx damon [place] [facility] 4 14:29:21 Pain in throat 209106808 Completed 07/10/2011 Not Available [facility] 3 03:03:10 Acute upper respirator y infection 70215450 Completed 200607/10/2011 Not Available [facility] 3 03:01:20 Otitis media 53242380 Completed 200707/10/2011 Not Available [facility] 3 03:01:20 Viral disease 39746319 Completed 09/29/2011 Not Available [facility] 3 03:01:20 Viral disease 55517584 Completed 07/10/2011 Not Available [facility] 3 03:01:20 Acute conjunctiv itis 34227381 Completed 200607/10/2011 Not Available [facility] 3 03:01:20 Acute pharyngiti s 701437438 Completed 200607/10/2011 Not Available [facility] 3 03:01:20 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 Procedures Surgical History None recorded. Imaging Results Imaging Date Name Status LastModified by Organiz ation Details LastModified Time 06/07/2018 US, lower leg completed [email or web address] [facility] [address], [place], [address], 06/07/2018 17:52:11 06/07/2018 US, lower leg completed [...] 9 161.92 cm 41 % 20.9 kg/m2 01436.6 8 g 122 mm[Hg] 70 mm[Hg] Janee Flood [facility] 9 10:24:50 Date Recorded Body height Body mass index (BMI) Body mass index (BMI) Percentile per age and sex Body weight Systolic blood pressure Diastolic blood pressure Provider Name and Address Organization Details Last Updated DateTime 1 161.92 cm 23.5 kg/m2 68 % 04385.8 4 g 120 mm[Hg] 60 mm[Hg] Sandy Perales [facility] 1 14:22:58 Date Recorded Body weight Provider Name an d Address Organization Details Last Updated DateTime 02/26/2018 00492.97 g Carol Fisher L.P.N. [facility] 02/26/2018 11:35:13 Date Recorded Body weight Body temperature Provider N veronika and Address Organization Details Last Updated DateTime 09/18/2018 14829.47 g 98.2 [degF] Dottie Martin L.P.N [facility] 09/18/2018 09:30:39 Social History Question Answer Notes LastModified by Organizat ion Details LastModified Time Tobacco Smoking Status Never Smoker Calos Garcia, [facility] 04/27/2014 14:09:40 Have There Been [...] DBA_PATCH_ 105 Information not available 06/03/2011 Siblings OLI( Rae) 03/01/04 DBA_PATCH_ 105 Information not available 06/03/2011 Year In School 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 12/20/2017 Information not available 02/20/2019 Are You Passively Exposed To Smoke? No [email or web address] Information not available 04/27/2014 Sex: Unknown Functional Status Question Answer Note LastModified by Organizat ion Details LastModified Time Do you use any illicit or recreational drugs? No Information not available 07/09/2017 Mental Status None recorded. Family History Relationship [...] and Address Organization Details Recorded Time Novel [id number], nasal 9 completed Not Available [facility] 08/16/2019 02:34:48 Hib, unspecified formulation 1 completed Not Available [facility] 06/03/2011 03:19:20 IPV 5 completed Not Available [facility] 06/03/2011 03:18:24 DTaP, unspecified formulation 1 completed Not Available [facility] 06/03/2011 03:18:24 pneumococcal conjugate PCV 7 0 completed Not Available [facility] 06/03/2011 03:18:24 DTaP, unspecified formulation 1 completed Not Available [facility] 06/03/2011 03:19:20 pneumococcal conjugate PCV 7 1 completed Not Available [facility] 06/03/2011 03:18:24 DTaP, unspecified formulation 0 completed Not Available [facility] 06/03/2011 03:18:24 Hep B, unspecified formulation 1 completed Not Available [facility] 06/03/2011 03:18:24 Hib, unspecified formulation 2 completed Not Available [facility] 06/03/2011 03:18:24 IPV 2 completed Not Available [facility] 06/03/2011 03:19:20 DTaP, unspecified formulation 2 completed Not Available [facility] 06/03/2011 03:18:24 MMR 4 completed Not Available [facility] 06/03/2011 03:18:24 Hib, unspecified formulation 1 completed Not Available [facility] 06/03/2011 03:18:24 Hep B, unspecified formulation 0 completed Not Available [facility] 06/03/2011 03:19:20 Hep B, unspecified formulation 0 completed Not Available [facility] 06/03/2011 03:18:24 pneumococcal conjugate PCV 7 1 completed Not Available [facility] 06/03/2011 03:18:24 MMR 2 completed Not Available [facility] 06/03/2011 03:18:24 IPV 0 completed Not Available [facility] 06/03/2011 03:19:20 pneumococcal conjugate PCV 7 1 completed Not Available [facility] 06/03/2011 03:18:24 Hib, unspecified formulation 0 completed Not Available [facility] 06/03/2011 03:18:24 IPV 1 completed Not Available [facility] 06/03/2011 03:18:24 Influenza, split virus, trivalent, preservative 1 completed Not Available [facility] 08/16/2019 02:35:18 meningococcal MCV4P 1 completed Not Available [facility] 08/16/2019 02:33:28 Tdap 1 completed Not Available [facility] 08/16/2019 02:33:37 HPV, quadrivalent 1 completed Not Available [facility] 08/16/2019 02:33:59 Influenza, split virus, trivalent, preservative 9 completed Not Available [facility] 08/16/2019 02:34:44 Influenza, live, quadrivalent, intranasal 3 completed Not Available [facility] 08/16/2019 02:35:32 HPV, quadrivalent 3 completed Not Available [facility] 08/16/2019 02:34:09 influenza, unspecified formulation 8 completed Not Available [facility] 06/03/2011 03:16:44 influenza, unspecified formulation 8 completed Not Available [facility] 06/03/2011 03:16:44 Influenza, live, quadrivalent, intranasal 4 completed Not Available [facility] 08/16/2019 02:35:49 HPV, quadrivalent 4 completed Not Available [facility] 08/16/2019 02:34:14 Influenza, live, quadrivalent, intranasal 5 completed Not Available [facility] 08/16/2019 02:36:17 influenza, unspecified formulation 7 completed Calos Blackwood [facility] 07/09/2017 13:59:34 meningococcal MCV4P 6 completed Not Available [facility] 08/16/2019 02:37:13 Influenza, split virus, quadrivalent, PF 6 completed Not Available [facility] 08/16/2019 02:37:11 Td (adult), 5 Lf tetanus toxoid, preservative free, adsorbed 7 completed Not Available [facility] 08/16/2019 02:38:29 Influenza, split virus, quadrivalent, preservative 9 completed Calos Garcia [facility] 07/02/2019 12:23:16 Influenza, split virus, quadrivalent, preservative 0 completed Radha Pierre R.N. [facility] 05/03/2020 08:58:50 meningococcal B, OMV 9 completed Not Available [facility] 08/16/2019 02:39:39 meningococcal B, OMV 0 [facility]2019 11:14:45 Hep A, adult 1 completed Sandy Perales [facility] 09/09/2020 15:03:53 DTaP, unspecified formulation 5 completed Not Available [facility] 06/03/2011 03:17:07 varicella 1 completed Not Available [facility] 06/03/2011 03:17:07 influenza, unspecified formulation 7 completed Not Available [facility] 06/03/2011 03:16:44 varicella 7 completed Not Available [facility] 06/03/2011 03:16:44 Influenza, split virus, trivalent, preservative 0 completed Not Available [facility] 08/16/2019 02:35:07 Past Encounters Encounter ID Performer Location Encounter Start Date Encounter Closed Date Diagnosis/Indication Diagnosis SNOMED-CT Code Diagnosis ICD10 Code Diagnosis Note [id number] Roland Wells MD [place] [address] 05/27/2007 14:41:47 05/27/2007 15:32:17 [id number] Roland Wells MD [place] [address] 06/28/2007 09:43:21 06/28/2007 11:29:14 [id number] Roland Wells MD [place] [address] 2 07/04/2007 16:13:29 07/04/2007 16:55:27 [id number] Alyx Santo PNP, LAN SPECIALIST, PhD [place] [address] 2 10/28/2007 17:04:44 10/28/2007 17:06:26 [id number] Roland Wells MD PVP [place] [id number] 06/04/2008 14:44:20 06/04/2008 16:01:20 [id number] KONRAD WORLEY PVP [place] [address] 2 07/02/2008 15:13:36 07/02/2008 15:23:21 [id number] Roland Welsl MD PVP [place] [address] 07/31/2008 12:04:16 07/31/2008 12:31:00 [id number] Sharon Richter MD PVP [place] [address] 2 08/28/2008 15:12:48 08/28/2008 16:24:20 [id number] Roland Wells MD PVP [place] [address] 2 01/25/2009 09:20:02 01/25/2009 10:27:40 [id number] Roland Wells MD PVP [place] [address] 2 06/30/2009 15:12:17 06/30/2009 16:20:43 [id number] Tiana Shook MD PVP [place] [address] 09/30/2009 16:34:41 09/30/2009 17:36:03 [id number] Roland Wells MD PVP [place] [address] 2 06/16/2010 15:05:20 06/16/2010 17:05:14 [id number] Nicol Ham MD PVP [address] [phone] 09/24/2010 10:53:36 09/24/2010 11:33:57 [id number] Donita Kebede MD PVP [place] [address] 2 10/27/2010 13:44:37 10/27/2010 15:01:46 [id number] Tiana Shook MD PVP [place] [id number] 11/08/2010 08:57:08 11/08/2010 09:45:36 [id number] Roland Wells MD [place] [address] 07/10/2011 15:55:46 07/10/2011 17:49:29 [id number] Roland Wells MD [place] [address] 2 07/27/2011 13:21:44 07/27/2011 14:19:31 [id number] Roland Saenz MD [address] [id number] 09/17/2011 10:46:21 09/17/2011 11:34:15 [id number] Roland Wells MD [place] [address] 09/29/2011 13:23:54 09/29/2011 14:26:34 [id number] Roland Wells MD [place] [address] 04/25/2013 15:07:19 04/25/2013 16:58:43 Well child 377556390 Developmen chula academic disorder 6576854 Anxiety 29502449 [id number] Roland Wells MD [place] [address] 03/27/2014 10:07:08 03/27/2014 13:36:16 Anxiety [id number] [facility] 140971739 [id number] Alyx GRECO, LAN SPECIALIST, PhD [place] [address] 2 04/27/2014 14:01:58 04/27/2014 17:32:39 Well child 233714135 Anxiety 84686490 [id number] Alyx GRECO, LAN SPECIALIST, PhD [place] [address] 2 03/29/2015 14:50:41 03/29/2015 17:13:12 Anxiety 52095404 [id number] Alyx GRECO, LAN SPECIALIST, PhD [place] [address] 2 05/03/2015 16:28:54 05/03/2015 17:18:53 Influenza vaccine needed 1688639381 106 Z23 Anxiety 79219330 F41.9 [id number] Alyx GRECO, LAN SPECIALIST, PhD [place] [address] 2 05/24/2015 14:30:17 05/24/2015 17:31:31 Well child 203043132 Z00.129 Anxiety 86305123 F41.9 much improved with hypnosis [id number] Alyx GRECO, LAN SPECIALIST, PhD [place] [address] 2 07/06/2015 14:50:24 07/06/2015 16:47:40 Anxiety 88146553 F41.9 much improved with hypnosis [id number] Alyx GRECO, LAN SPECIALIST, PhD [place] [address] 2 01/25/2016 16:25:19 01/25/2016 17:32:25 Anxiety 75963029 F41.9 [id number] Alyx GRECO, LAN SPECIALIST, PhD [place] [address] 2 02/21/2016 14:50:27 02/21/2016 16:33:54 Anxiety 93289354 F41.9 [id number] Alyx GRECO, LAN SPECIALIST, PhD [place] [address] 2 06/13/2016 14:38:48 06/13/2016 16:07:13 Active or passive immunization 106589617 Z23 Well child 741680377 Z00 .129 [id number] Gavino Presley MD [place] [address] 2 11/20/2016 10:20:43 11/20/2016 12:39:31 Cough 58216517 R05 2 weeks of cough. Not responding to azithromyc in as prescribed by urgent care. Suspect viral illness with lingering bronchospa stic cough.Will DC hydromorph one, do trial of albuterol to see if this provides symptomati c relief.Rec heck if no improvemen t by the end of the week. [id number] Alyx GRECO, LAN SPECIALIST, PhD [place] [id number] 07/09/2017 13:53:33 07/10/2017 08:20:40 Well child 442821085 Z00.129 Unintentio nal weight loss 104053753 R63.4 Anxiety 65957794 F41.9 much improved since hypnosis - uses strategies that she learned [id number] Tiana Shook MD [place] [address] 10/04/2017 11:03:23 10/04/2017 12:05:30 Concussion injury of brain 675407821 S06.0X0A [id number] Tiana Shook MD [place] [address] 12/20/2017 16:21:23 12/21/2017 13:22:22 Abdominal pain 25924846 R10.9 [id number] Tiana Shook MD [place] [address] 02/26/2018 11:26:46 02/26/2018 12:12:57 Abdominal pain 48541411 R10.9 [id number] Roland Wells MD [place] [address] 2 06/07/2018 14:17:59 06/07/2018 15:48:36 Muscle pain 51642289 M79.10 Pain in ri t lower limb 199526477 M79.604 [id number] Roland Wells MD [place] [address] 09/18/2018 09:26:29 09/18/2018 09:54:04 Acute pharyngitis 686342586 J02.9 Acute fron chula sinusitis 69432089 J01.10 [id number] Cynthia Phillips MD [place] [address] 07/25/2019 10:00:57 07/25/2019 13:04:21 Active or passive immunization 967289902 Z23 Adult heal th examination 528545232 Z00.00 Normal bod y mass index 47332755 Z68.20 Tuberculos is screening 098416237 Z11.1 Acquired l actase deficiency 63452537 E73.1 [id number] Cynthia Phillips MD [place] [address] 09/09/2020 14:16:53 09/10/2020 08:12:56 Diet education 85409735 Z71.3 Exercises education, guidance, and counseling 817557781 Z71.82 Normal bod y mass index 97427315 Z68.23 Adult heal th examination 579920993 Z00.00 Active or passive immunization 498717424 Z23 Health Concerns Section Related Observation LastModified by Organization Detai ls LastModified Time None Recorded Concern Status LastModified by Organization Details LastModified Time None Recorded Advance Directives Directive None Recorded Payers Encounter Date Sequence Insurance Name Policy Number Policy Rose Covered Member ID Rose Member ID Guarantor Name 02/26/2018 1 [place] [id number] Sachi Ghulam [id number] Sachi Parmar 06/07/2018 1 [place] [id number] Sachi Ghulam [id number] Sachi Parmar 09/18/2018 1 [place] [id number] Sachi Ghulam [id number] Sachi Parmar 07/25/2019 1 [place] [id number] Sachi Parmar Jr [id number] Sachi Parmar 09/09/2020 1 [place] [id number] Sachi Parmar Jr [id number] Sachi Parmar 09/09/2020 1 [place] [id number] Sachi Parmar Jr [id number] Sachi Parmar Notes Date Note Type [...] were all nl. Tiana Shook MD [address] [place], [place], , [facility] 02/26/2018 12:03:09 06/07/2018 text/html RS [...] WITH CERTAIN MOVEMENT. Roland Wells MD [address] [place], [place], , [facility] 06/07/2018 15:33:33 09/18/2018 text/html RS [...] PAST 4-5 DAYS. Roland Wells MD [address] [place], [place], , [facility] 09/18/2018 09:50:09 07/25/2019 text/html pt complains of experiencing diarrhea when consuming milkNo issues with cheese, doesnt really eat yogurtSometimes issues with ice creamdrinking almond milk CYNTHIA damon, [facility] 07/25/2019 12:34:50 OBGyn Episode No OBEpisode recorded.
--- NOTE | 2024-12-19 13:16 | MHC.PC.OV ---
Intake Visit Reasons: pft results Intake Note: Telehealth follow up to review pft. Patient also c/o fainting a few times last week but didn't lose consciousness. Livestock Feeder Required: No Allergies Seasonal Allergies Allergy (Mild, Verified 12/19/24 16:50) Unknown codeine Adverse Reaction (Mild, Verified 12/19/24 16:50) Dizziness cats Allergy (Mild, Uncoded 12/19/24 13:17) itchy dogs Allergy (Mild, Uncoded 12/19/24 13:17) Unknown horses Allergy (Mild, Uncoded 12/19/24 13:17) Unknown tree pollen Allergy (Mild, Uncoded 12/19/24 13:17) seasonal allergies Medication List - Last Reconciled 12/19/24 by Disha Clay [facility]- albuterol sulfate 90 mcg/actuation 0 mcg inhalation cholecalciferol (vitamin D3) 50 mcg PO DAILY 90 days fexofenadine (Wendie Allergy) 180 mg PO DAILY fluticasone propionate 100 mcg/actuation (Flovent Diskus) 1 inh inhalation BID multivitamin with iron 1 tab PO DAILY Tobacco use date assessed: 12/19/24 Dental Screening Dental Screen Date: 11/03/24 Did you have a dental visit in the last 12 months?: Yes Did you have a dental problem in the last 6 months where you did not have access to dental care?: No Was dental information given to patient?: Patient has dentist HPI HPI Comments History of Present Illness Details 24-year-old female with MDD, generalized anxiety disorder, allergic rhinitis w/ recurrent sinusitis, eczema dermatitis, constipation, vasovagal syncope, family hx colon ca, Vit d def, Iron def anemia Social: [employer], works at [employer]. Living in own apt. Surgery wisdom teeth removal Family history: Maternal grandmother Graves disease, Maternal Grandfather: HLD, maternal aunt thyroid disease, mother with hypertension, paternal grandfather colon cancer + parkinsons disease siblings: 1 younger, alive and well. Specialists Cardiology Allergy and immunology [employer] [facility] - L hand cortisone inj for tendonitis Derm - removed warts from fingers Health maintenance Echocardiogram 10/08/2023 within normal limits Holter within normal limits Labs 11/29/2022 normal CBC, labs 11/24/2022 normal CMP, normal TSH and lipid panel 08/2022 Vaccine UTD PAP 2022 WNL History of Present Illness - The patient is a 24-year-old female presenting with pulmonary function test follow-up. - Reporting shortness of breath disproportionate to exertion levels. - Pulmonary function test suggests small to medium airway disease. - Experiences lightheadedness during exertion. - Currently managed with Flovent and albuterol inhalers. - Discontinued allergy shots due to scheduling issues. Assessment and Plan 1. Small to medium airway disease - Confirm test results indicate airway disease. - Need for surgery scheduler evaluation. - Increase flovent from 100mcg BID to 250mg BID. FU as scheduled in January w/ repeat labs. Unfortunatley the call dropped. I called back x 3. Went to voicemail which was not setup. Encrypted text sent with plan along w/ portal message. Telehealth Attestation The visit was conducted via telehealth. The documentation accurately reflects the encounter and assessment. The patient has been explained that this is an interactive (audio/video) telehealth encounter and what that consists of. The patient understands and wishes to proceed. [employer] platform was used. Total time spent caring for the patient today was 15 minutes. This includes time spent before the visit reviewing the chart, time spent during the visit, and time spent after the visit on documentation, reviewing laboratory results, diagnostic imaging, medications, performing a medically necessary evaluation, counseling on diagnoses, care coordination, ordering appropriate tests, ordering appropriate medications, review of tests performed by other providers, reporting test results with the patient, communication with other healthcare providers. [facility] Medical History Numbness and tingling of lower extremity Elevated liver enzymes Seasonal allergies Surgical History Jerome teeth extracted Family History Father No problems noted. Mother No problems noted. Maternal Grandfather CAD (coronary artery disease) Social History (Updated 06/20/24 @ 14:49 by KAM Fang) Household Members: Family Both parents involved: Yes Caregiver staying overnight: No Housing: House Are you a primary acute care registered nurse to a significant other at home: No Do you presently have visiting nurse or other home services: No 75 years or older and lives alone: No Alcohol intake: current Alcohol intake frequency: holidays/special occasions only Patient Tobacco Use Status: Never used Tobacco e-Cigarette/Vaping Use: Never Used service: No Current occupational status: employed Current occupation: [employer] Current occupational exposures/hazards: No Sexual orientation: Straight/Heterosexual Gender identity: Female Cognitive needs: No Hearing needs: No Vision needs: No Questionnaire Thrive Questionnaire Date Thrive assessed: 10/12/24 ELOISE-7 AMB Questionnaire ELOISE-7 Date ELOISE - 7 assessed: 10/17/24 Source: Developed by Drs. Ed Edwards, Germaine Ingram, Olivier Prather and colleagues, with an educational fernando from [email or web address]. Physical exam (Primary Care) Tobacco/Smoking Status: Tobacco use Status Tobacco use date assessed 12/19/24 12/19/24 13:19 Patient Tobacco Use Status Never used Tobacco 12/19/24 13:19 Tobacco use type 06/21/21 16:42 e-Cigarette/Vaping Use Never Used 12/19/24 13:19 Thrive Assessment: Date of Thrive Assessment Date Thrive assessed 10/12/24 12/19/24 13:19 Telehealth Telehealth Telehealth Platform: [employer] Location of provider rendering services: practice address Location of patient: address on file Patient Identification confirmed using: Name, : Yes Telehealth method: voice only Patient verbally consented to treatment: Yes Patient verbally consented to billing insurance company: Yes Patient informed of any privacy concerns related to visit: Yes Minutes spent on Phone/Video with Pt.: 7 Results Reviewed Results Reviewed: [place] [id number] Pulmonary Function Report Signed Patient: Nolvia Parmar MR#: [id number] : 2000 Acct:[id number] Age/Sex: 24 / F ADM Date: 11/27/24 Loc: HO.RESP Attending Dr: Nolvia Coker [employer]NER Ordering Physician: Disha Clay Date of Service: 11/27/24 Procedure(s): PFT pulmonary function test Accession Number(s): [id number] cc: Disha Clay~ Flows: FEV1: 102 % of predicted at 3.23 L FVC: 101 % of predicted at 3.71 L FEV1/FVC: 87 % Bronchodilator response: Present in small to medium airways only Volumes: Total lung capacity: 107 % of predicted at 5.20 L Residual volume: 138 % of predicted at 1.47 L Slow vital capacity: 100 % of predicted at 3.73 L Expiratory reserve volume: 119 % of predicted at 1.45 L Diffusion capacity: Normal Impression: No obstructive or restrictive ventilatory defect. Bronchodilator response is present in small to medium airways only. Increased residual volume suggests air trapping. Dictated By: Niall Duffy MD Signed By: <Electronically signed by Niall Duffy MD> 11/30/24 1237 DD/ 0854 TD/TT: 11/27/24 0854 Promotions Assistant Sales Marketing: Coding Level of Care Code Tele Est Pt Level 2 (81616) Complex EM visit Add On G2211 Diagnoses Mild intermittent asthma in adult without complication J45.20 Assessment & Plan Assessment & Plan (1) Mild intermittent asthma in adult without complication: Comment: P.jan Lili. Maintenance inhaler Flovent. Code(s): J45.20 - Mild intermittent asthma, uncomplicated Category: Medical Plan . Orders: Referrals Pulmonology Referral J45.20 - Mild intermittent asthma, uncomplicated Medications: New fluticasone propionate 250 mcg/actuation 1 inh inhalation BID 60 ea 2RF
== END 2024-12-19 17:04 | disposition home or self-care (01) ==
LOC: HO.HMCFM 12:05
PROVIDERS: PCP Family Medicine; Visit Provider Nurse Practitioner Family
DX: J45.20 Mild intermittent asthma, uncomplicated (principal)

== ENCOUNTER → 2024-12-19 12:05 | Outpatient (BNVA) | payer OTHER, SELFPAY | PROVIDERS: PCP Family Medicine; Visit Provider Nurse Practitioner Family | DX: J45.20 Mild intermittent asthma, uncomplicated (principal) | CPT/HCPCS: 98966 ==

== ENCOUNTER 2025-01-22 15:39 | Outpatient (REF) | payer OTHER, SELFPAY ==
[2025-01-22 17:02] LABS: Hematocrit 36.4 % (37.0-47.0); Hemoglobin 12.5 g/dl (12.0-16.0); Mean Corpuscular HGB Conc 34.3 g/dl (31.0-35.0); Mean Corpuscular Hemoglobin 29.8 pg (27.0-33.0); Mean Corpuscular Volume 86.7 fL (80.0-98.0); Mean Platelet Volume 8.7 fL (9.4-12.3); Platelet Count 279 X10*3/uL (160-400); Red Cell Distribution Width 13.2 % (11.0-16.0); White Blood Count 6.2 X10*3/uL (4.8-10.8)
[2025-01-22 17:30] LABS: Iron 60 mcg/dL (30-160); Percent Iron Saturation 17 % (15-50); Total Iron Binding Capacity 343 mcg/dL (228-428); Unsaturated Iron Binding 283 ug/dL
[2025-01-22 17:45] LABS: Ferritin 36 ng/mL (10-122); Vitamin D 25-OH Total 40.4 ng/mL (>30)
--- OUTSIDE RECORDS SUMMARY | 2025-01-22 19:20 | XMS_ITS | Data Portability ---
Author Organization [place] - [facility], [facility] Address [address] [place] [address] Assessment Encounter Date Assessment Date Assessment LastModified by Organization Details LastModified Time 02/26/2018 02/26/2018 ABDOMINAL PAIN-- Resolved! Will con't healthy eating and not skipping meals. Has regained some weight. Recheck if any recurrence, otherwise recheck at this winter. [email or web address] Not available 02/26/2018 12:03:06 07/25/2019 07/25/2019 Nolvia is a 19 y/o here for a wcc today. Nl growth and development. Age appropriate AG given. Follow up in 1 year for WCC. Discussed transition to adult medicine, will give referral today. Needs PPD for BOOKER course Will get bexero #1 today Flu [...] completed for season. 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 Gets STI testing yearly though recycling crew supervisor, will defer today. Lactose intolerance - avoids milk, will take calcium supplement Not available 09/09/2020 21:22:01 Plan of Treatment Reminders Order Date Submit Date Provider Last Modified By Organization Details Last Modified Time Details Appointments None recorded. Lab PPD (purified protein derivative) , skin test 2018 019 [facility], [address] [place] [address], [id number], 9 10:06:23 lipid panel, blood 2018 [facility], [address] [place] [address], [phone], 9 11:06:11 rapid strep group A, throat 2018 019 [facility], [address] [place] [address], [id number], 9 09:49:42 culture, throat 2018 [facility], [address] [place] [address], [phone], 9 09:49:42 Referral internal medicine referral 2020 021 [email or web address] Not available 15:17:27 internal medicine referral 2018 [email or web address] Not available 9 13:58:48 Procedures None recorded. Surgeries None recorded. Imaging US, lower leg - PT WITH PAINFUL RIGHT CALF 10 DAYS AFTER EXERCISE WITH DIFFIULTY WALKING 2' TO MYALGIA. HAS DISTINCTLY COLD RIGHT LOWER LEG COMPARED TO LEFT. NOT ICING IT . PLEASE R/O DVT. POSTERIOR TIB PULSES NORMAL. CANNOT PALPATE DP PULSES BILAT. GOOD CAP RETURN. 2017 [facility], [address], [facility] [[email or web address] [address], [place], [address], 8 16:33:08 Medication Orders Tubersol 5 tub. unit/0.1 mL intradermal injection solution 2018 [email or web address] Not available 14:23:42 amoxicillin 500 mg capsule 2018 [email or web address] 0 [facility], [address] [place], [address], 10:17:23 Patient TargetsNo targets recorded. Patient Instructions Encounter Date Encounter Id Patient Instructions Last Modified By Organization Details Last Modified Time 06/07/2018 [id number] WILL REF TO ER T O R/O DVT. IF NEG, WILL USE HEAT/ALLEVE 330 BID FOR 5 DAYS/GENTLE MASSAGE/CRUTCHES WITH PROGRESSIVE WT BEARING. [email or web address] Not available 06/07/2018 15:26:58 09/18/2018 [id number] SX CARE [email or web address] Not available 09/18 09:49:49 07/25/2019 [id number] program - 5 fruits & veggies Not available 07/25/2019 10:49:38 [id number] program - 1 hour of exercise Not available 07/25/2019 10:49:38 patient health questionnaire depression assessment* Not available 07/25/2019 10:49:38 immunization: wh at you need to know Not available 07/25/2019 10:49:38 09/09/2020 [id number] program - 5 fruits & veggies Not [...] sment * PHQ-9 negati ve Not Available [facility] [address] [place] [address], [phone], 09/08/2020 16:02:50 07/25/20 19 07/25/2019 patie nt healt h quest ionna angelia depre ssion asses sment * PHQ-9 negati ve Not Available [facility] [address] [place] [address], [phone], 07/25/2019 08:10:01 09/18/19 19 09/18/2018 cultu re, throa t Result 24 HR negati ve Not Available [facility] [address] [place] [address], [phone], 09/18/2018 09:34:32 09/18/19 19 09/18/2018 cultu re, throa t Result 48 HR negati ve Not Available [facility] [address] [place] [address], [phone], 09/18/2018 09:34:32 09/18/19 19 09/18/2018 rapid strep group A, throa t Rapid Strep negati ve Not Available [facility] [address] [place] [address], [address], 09/18/2018 09:34:31 07/27/20 19 07/27/2019 PPD (joseph fied prote in deriv ative ), skin test Result negati ve Not Available [facility] [address] [place] [address], [address], 07/25/2019 08:18:10 07/27/20 19 07/27/2019 PPD (joseph fied prote in deriv ative ), skin test Induration mm 0mm Zane d , Read by Arnold judge, RN Not Available [facility] [address] [place] [address], [phone], 07/25/2019 08:18:10 01/21/20 21 01/20/2021 PPD (joseph fied prote in deriv ative ), skin test Result negati ve Not Available [facility] [address] [place], [address], 01/18/2021 10:32:51 01/21/20 21 01/20/2021 PPD (joseph fied prote in deriv ative ), skin test Induration mm 0 Not Available [facility] [address] [place], [address], 01/18/2021 10:32:51 06/07/20 18 US, lower leg No observ ation record ed. [email or web address] [facility] [address], [place], [address], 06/07/2018 17:52:11 06/07/20 18 06/07/2018 US, lower leg No observ ation record ed. [email or web address] Not Available 2017 17:52:37 Result Notes None recorded. Problems Name Problem SNOMED Code Status Onset Date Resolution Date Notes Provider Name and Address Organization Details Recorded Time Anxiety 01111099 Active Alyx damon [place] - [facility] 5 15:33:21 Vomiting 982106451 Completed 04/27/[address] [place] [facility] 4 14:29:21 Pain in throat 540656654 Completed 07/10/2011 Not Available [facility] 3 03:03:10 Acute upper respirator y infection 02574882 Completed 200607/10/2011 Not Available [facility] 3 03:01:20 Otitis media 98781209 Completed 200707/10/2011 Not Available [facility] 3 03:01:20 Viral disease 82567170 Completed 09/29/2011 Not Available [facility] 3 03:01:20 Viral disease 96441796 Completed 07/10/2011 Not Available [facility] 3 03:01:20 Acute conjunctiv itis 09392121 Completed 200607/10/2011 Not Available [facility] 3 03:01:20 Acute pharyngiti s 310264673 Completed 200607/10/2011 Not Available [facility] 3 03:01:20 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 - [facility] 8 11:56:48 Streptococ janie sore throat 81486597 Completed 07/10/2011 Not Available [facility] 3 03:01:20 Precocious sexual developmen t Active 2008 Not Available [facility] 3 03:01:20 Problem Notes None recorded. Medical Equipment None Reported. [...] 1 161.92 cm 23.5 kg/m2 68 % 39620.8 4 g 120 mm[Hg] 60 mm[Hg] Sandy Perales [facility] 1 14:22:58 Date Recorded Body weight Body temperature Provider N veronika and Address Organization Details Last Updated DateTime 09/18/2018 55908.47 g 98.2 [degF] Dottie Martin L.P.N [facility] 09/18/2018 09:30:39 Date Recorded Body weight Provider Name an d Address Organization Details Last Updated DateTime 02/26/2018 55250.97 g Carol Fisher L.P.N. [facility] 02/26/2018 11:35:13 Date Recorded Body height Body mass index (BMI) [Percentile] Per age and sex Body mass index (BMI) Body weight Systolic blood pressure Diastolic blood pressure Provider Name and Address Organization Details Last Updated DateTime 9 161.92 cm 41 % 20.9 kg/m2 18346.6 8 g 122 mm[Hg] 70 mm[Hg] Janee Flood [facility] 9 10:24:50 Social History Question Answer Notes LastModified by Organizat ion Details LastModified Time Tobacco Smoking Status Never Smoker Calos Garcia, [facility] 04/27/2014 14:09:40 Have There Been [...] 105 Information not available 06/03/2011 Year In [facility] [email or web address] Information not available 07/25/2019 Parent's Name GINA [...] and Address Organization Details Recorded Time Novel [id number], nasal 9 completed Not Available [facility] 08/16/2019 02:34:48 Hib, unspecified formulation 1 completed Not Available [facility] 06/03/2011 03:19:20 IPV 5 completed Not Available [facility] 06/03/2011 03:18:24 DTaP, unspecified formulation 1 completed Not Available [facility] 06/03/2011 03:18:24 pneumococcal conjugate PCV 7 0 completed Not Available [facility] 06/03/2011 03:18:24 DTaP, unspecified formulation 1 completed Not Available [facility] 06/03/2011 03:19:20 pneumococcal conjugate PCV 7 1 completed Not Available [facility] 06/03/2011 03:18:24 DTaP, unspecified formulation 0 completed Not Available [facility] 06/03/2011 03:18:24 Hep B, unspecified formulation 1 completed Not Available [facility] 06/03/2011 03:18:24 Hib, unspecified formulation 2 completed Not Available [facility] 06/03/2011 03:18:24 IPV 2 completed Not Available [facility] 06/03/2011 03:19:20 DTaP, unspecified formulation 2 completed Not Available [facility] 06/03/2011 03:18:24 MMR 4 completed Not Available [facility] 06/03/2011 03:18:24 Hib, unspecified formulation 1 completed Not Available [facility] 06/03/2011 03:18:24 Hep B, unspecified formulation 0 completed Not Available [facility] 06/03/2011 03:19:20 Hep B, unspecified formulation 0 completed Not Available [facility] 06/03/2011 03:18:24 pneumococcal conjugate PCV 7 1 completed Not Available [facility] 06/03/2011 03:18:24 MMR 2 completed Not Available [facility] 06/03/2011 03:18:24 IPV 0 completed Not Available [facility] 06/03/2011 03:19:20 pneumococcal conjugate PCV 7 1 completed Not Available [facility] 06/03/2011 03:18:24 Hib, unspecified formulation 0 completed Not Available [facility] 06/03/2011 03:18:24 IPV 1 completed Not Available [facility] 06/03/2011 03:18:24 Influenza, split virus, trivalent, preservative 1 completed Not Available [facility] 08/16/2019 02:35:18 meningococcal MCV4P 1 completed Not Available [facility] 08/16/2019 02:33:28 Tdap 1 completed Not Available [facility] 08/16/2019 02:33:37 HPV, quadrivalent 1 completed Not Available [facility] 08/16/2019 02:33:59 Influenza, split virus, trivalent, preservative 9 completed Not Available [facility] 08/16/2019 02:34:44 Influenza, live, quadrivalent, intranasal 3 completed Not Available [facility] 08/16/2019 02:35:32 HPV, quadrivalent 3 completed Not Available [facility] 08/16/2019 02:34:09 influenza, unspecified formulation 8 completed Not Available [facility] 06/03/2011 03:16:44 influenza, unspecified formulation 8 completed Not Available [facility] 06/03/2011 03:16:44 Influenza, live, quadrivalent, intranasal 4 completed Not Available [facility] 08/16/2019 02:35:49 HPV, quadrivalent 4 completed Not Available [facility] 08/16/2019 02:34:14 Influenza, live, quadrivalent, intranasal 5 completed Not Available [facility] 08/16/2019 02:36:17 influenza, unspecified formulation 7 completed Calos Blackwood, [facility] 07/09/2017 13:59:34 meningococcal MCV4P 6 completed Not Available [facility] 08/16/2019 02:37:13 Influenza, split virus, quadrivalent, PF 6 completed Not Available [facility] 08/16/2019 02:37:11 Td (adult), 5 Lf tetanus toxoid, preservative free, adsorbed 7 completed Not Available [facility] 08/16/2019 02:38:29 Influenza, split virus, quadrivalent, preservative 9 completed Calos Garcia [facility] 07/02/2019 12:23:16 Influenza, split virus, quadrivalent, preservative 0 completed Calos Garcia [facility] 05/03/2020 08:58:50 meningococcal B, OMV 9 completed Not Available [facility] 08/16/2019 02:39:39 meningococcal B, OMV 0 completed Meghann Mckinney [facility] 09/03/2019 11:14:45 Hep A, adult 1 completed Sandy damon [facility] 09/09/2020 15:03:53 DTaP, unspecified formulation 5 completed Not Available [facility] 06/03/2011 03:17:07 varicella 1 completed Not Available [facility] 06/03/2011 03:17:07 influenza, unspecified formulation 7 completed Not Available [facility] 06/03/2011 03:16:44 varicella 7 completed Not Available [facility] 06/03/2011 03:16:44 Influenza, split virus, trivalent, preservative 0 completed Not Available [facility] 08/16/2019 02:35:07 Past Encounters Encounter ID Performer Location Encounter Start Date Encounter Closed Date Diagnosis/Indication Diagnosis SNOMED-CT Code Diagnosis ICD10 Code Diagnosis Note [id number] Roland Wells MD [place] [address] 2 05/27/2007 14:41:47 05/27/2007 15:32:17 [id number] Roland Wells MD [place] [address] 2 06/28/2007 09:43:21 06/28/2007 11:29:14 [id number] Roland Wells MD [place] [address] 2 07/04/2007 16:13:29 07/04/2007 16:55:27 [id number] Alyx Santo PNP, POND SUPERVISOR, PhD [place] [address] 2 10/28/2007 17:04:44 10/28/2007 17:06:26 [id number] Roland Wells MD [place] [address] 2 06/04/2008 14:44:20 06/04/2008 16:01:20 [id number] [place] [address] 07/02/2008 15:13:36 07/02/2008 15:23:21 [id number] Roland Wells MD [place] [id number] 07/31/2008 12:04:16 07/31/2008 12:31:00 [id number] Sharon Richter MD PVP [place] [id number] 2 08/28/2008 15:12:48 08/28/2008 16:24:20 [id number] Roland Wells MD PVP [place] [address] 2 01/25/2009 09:20:02 01/25/2009 10:27:40 [id number] Roland Wells MD PVP [place] [address] 2 06/30/2009 15:12:17 06/30/2009 16:20:43 [id number] Tiana Shook MD PVP [place] [id number] 2 09/30/2009 16:34:41 09/30/2009 17:36:03 [id number] Roland Wells MD [place] [address] 2 06/16/2010 15:05:20 06/16/2010 17:05:14 [id number] Nicol Ham MD [address] [address] 09/24/2010 10:53:36 09/24/2010 11:33:57 [id number] Donita Kebede MD PVP [place] [address] 2 10/27/2010 13:44:37 10/27/2010 15:01:46 [id number] Tiana Shook MD PVP [place] [address] 2 11/08/2010 08:57:08 11/08/2010 09:45:36 [id number] Roland Wells MD [facility] [place] [id number] 2 07/10/2011 15:55:46 07/10/2011 17:49:29 [id number] Roland Wells MD PVP [place] [address] 2 07/27/2011 13:21:44 07/27/2011 14:19:31 [id number] Roland Saenz MD [facility] [address] [facility] [place] [address] 09/17/2011 10:46:21 09/17/2011 11:34:15 [id number] Roland Wells MD [place] [address] 2 09/29/2011 13:23:54 09/29/2011 14:26:34 [id number] Roland Wells MD [place] [address] 2 04/25/2013 15:07:19 04/25/2013 16:58:43 Well child 627150959 Developmen chula academic disorder 7868985 Anxiety 29380105 [id number] Roland Wells MD [place] [address] 2 03/27/2014 10:07:08 03/27/2014 13:36:16 Anxiety 78871613 [facility] 694030651 [id number] Alyx GRECO, POND SUPERVISOR, PhD [place] [address] 2 04/27/2014 14:01:58 04/27/2014 17:32:39 Well child 586407486 Anxiety 28411948 [id number] Alyx GRECO, POND SUPERVISOR, PhD [place] [address] 2 03/29/2015 14:50:41 03/29/2015 17:13:12 Anxiety 15282248 [id number] Alyx GRECO, POND SUPERVISOR, PhD [place] [address] 2 05/03/2015 16:28:54 05/03/2015 17:18:53 Influenza vaccine needed 9264216967 106 Z23 Anxiety 24671163 F41.9 [id number] Alyx GRECO, POND SUPERVISOR, PhD [place] [address] 2 05/24/2015 14:30:17 05/24/2015 17:31:31 Well child 192640170 Z00.129 Anxiety 85628522 F41.9 much improved with hypnosis [id number] Alyx GRECO, POND SUPERVISOR, PhD [place] [address] 2 07/06/2015 14:50:24 07/06/2015 16:47:40 Anxiety 98564438 F41.9 much improved with hypnosis [id number] Alyx GRECO, POND SUPERVISOR, PhD [place] [address] 2 01/25/2016 16:25:19 01/25/2016 17:32:25 Anxiety 60212788 F41.9 [id number] Alyx GRECO, POND SUPERVISOR, PhD [place] [address] 2 02/21/2016 14:50:27 02/21/2016 16:33:54 Anxiety 33315445 F41.9 [id number] Alyx GRECO, POND SUPERVISOR, PhD [place] [address] 2 06/13/2016 14:38:48 06/13/2016 16:07:13 Active or passive immunization 109418679 Z23 Well child 605311856 Z00 .129 [id number] Gavino Presley MD [place] [address] 2 11/20/2016 10:20:43 11/20/2016 12:39:31 Cough 16271027 R05 2 weeks of cough. Not responding to azithromyc in as prescribed by urgent care. Suspect viral illness with lingering bronchospa stic cough.Will DC hydromorph one, do trial of albuterol to see if this provides symptomati c relief.Rec heck if no improvemen t by the end of the week. [id number] Alyx GRECO, POND SUPERVISOR, PhD [place] [address] 2 07/09/2017 13:53:33 07/10/2017 08:20:40 Well child 766060168 Z00.129 Unintentio nal weight loss 615500708 R63.4 Anxiety 12940927 F41.9 much improved since hypnosis - uses strategies that she learned [id number] Tiana Shook MD [place] [address] 2 10/04/2017 11:03:23 10/04/2017 12:05:30 Concussion injury of brain 022536025 S06.0X0A [id number] Tiana Shook MD [place] [id number] 12/20/2017 16:21:23 12/21/2017 13:22:22 Abdominal pain 37068689 R10.9 [id number] Tiana Shook MD [place] [address] 2 02/26/2018 11:26:46 02/26/2018 12:12:57 Abdominal pain 34183036 R10.9 [id number] Roland Wells MD [place] [address] 2 06/07/2018 14:17:59 06/07/2018 15:48:36 Muscle pain 29673169 M79.10 Pain in ri t lower limb 593669585 M79.604 [id number] Roland Wells MD [place] [address] 2 09/18/2018 09:26:29 09/18/2018 09:54:04 Acute pharyngitis 128761409 J02.9 Acute fron chula sinusitis 44039792 J01.10 [id number] Cynthia Phillips MD [place] [address] 2 07/25/2019 10:00:57 07/25/2019 13:04:21 Active or passive immunization 904668172 Z23 Adult heal th examination 419195469 Z00.00 Normal bod y mass index 19175539 Z68.20 Tuberculos is screening 460621360 Z11.1 Acquired l actase deficiency 22805716 E73.1 [id number] Cynthia Phillips MD [place] [address] 09/09/2020 14:16:53 09/10/2020 08:12:56 Diet education 66504901 Z71.3 Exercises education, guidance, and counseling 419834258 Z71.82 Normal bod y mass index 82031154 Z68.23 Adult heal th examination 467408313 Z00.00 Active or passive immunization 048817178 Z23 Health Concerns Section Related Observation LastModified by Organization Detai ls LastModified Time None Recorded Concern Status LastModified by Organization Details LastModified Time None Recorded Advance Directives Directive None Recorded Payers Insurance Date Sequence Insurance Name Policy Number Policy Rose Covered Member ID Rose Member ID Guarantor Name 01/14/2021 1 [place] [id number] Sachi Parmar Jr [id number] Sachi Parmar 09/23/2020 1 [place] PREFERRED [place]) [id number] Sachi Parmar Jr [id number] Sachi Parmar Notes Date Note Type Note [...] rash.Labs were all nl. Tiana Shook MD [address] [place] [address], , [facility] 02/26/2018 12:03:09 06/07/2018 text/html RS Sick [...] SHARP WITH CERTAIN MOVEMENT. Roland Wells MD [address] [place] [address], , [facility] 06/07/2018 15:33:33 09/18/2018 text/html RS Sick [...] THE PAST 4-5 DAYS. Roland Wells MD [address] [place] [address], [phone], [facility] 09/18/2018 09:50:09 07/25/2019 text/html pt complains of experiencing diarrhea when consuming milkNo issues with cheese, doesnt really eat yogurtSometimes issues with ice creamdrinking almond milk CYNTHIA damon [facility] 07/25/2019 12:34:50 OBGyn Episode No OBEpisode recorded.
== END 2025-01-22 15:40 | disposition home or self-care (01) ==
LOC: HO.LAB 15:39
PROVIDERS: PCP Nurse Practitioner Family; Visit Provider Nurse Practitioner Family
DX: E55.9 Vitamin D deficiency, unspecified (principal); D50.9 Iron deficiency anemia, unspecified
CPT/HCPCS: 36415; 82306; 82728; 83540; 85027

== ENCOUNTER 2025-04-26 15:47 | Emergency (ER) | payer OTHER, SELFPAY ==
--- NOTE | ~2025-04-26 | XR_ITS ---
CLINICAL HISTORY: cough, sob 2 view chest x-ray Comparison: None provided Findings: The lungs are clear. Heart size is normal. No acute fracture. IMPRESSION: 1. No acute findings. This document has been electronically signed by: Ren Lee MD on 04/26/2025 17:30:23
[2025-04-26 15:49] VITALS: BP 139/88; PULSE 89; RESP 22; TEMP 36.3; O2SAT 100; BMI 25.4
--- NOTE | 2025-04-26 15:49 | ED.URI ---
HPI - URI/Sore Throat General Chief Complaint: Dyspnea Stated Complaint: SOB Time Seen by Provider: 04/26/25 16:10 Source: patient Mode of arrival: ambulatory Limitations: no limitations History of Present Illness ED Provider: KADEN Bright HPI Narrative: This is a 24-year-old female history of de Quervain tenosynovitis, anxiety, depression, vasovagal syncope, eczema, iron deficiency anemia presenting to the emergency department with shortness of breath x1 day. This morning she noted she was short of breath however it went away on its own. 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 When I asked her if she feels anxious she tells me yes however she feels anxious because she does not know what is going on. Reports very vague chest tightness that is intermittent in nature. Denies headache, vision changes, dizziness, weakness, nausea, vomiting, abdominal pain. No recent illness Related Data Home Medications ?Medication ?Instructions ?Recorded ?Confirmed albuterol sulfate 90 mcg/actuation 0 mcg inhalation 09/18/22 12/19/24 aerosol inhaler fexofenadine 180 mg tablet 180 mg PO DAILY 10/25/22 12/19/24 ([facility]) Previous Rx's ?Medication ?Instructions ?Recorded cholecalciferol (vitamin D3) 50 50 mcg PO DAILY 90 days #90 caps 11/03/24 mcg (2,000 unit) capsule multivitamin with iron 1 tab PO DAILY #90 tabs 11/03/24 fluticasone furoate 200 1 inh inhalation DAILY 30 days #1 12/23/24 mcg/actuation blister powder for ea inhalation (Arnuity Ellipta) albuterol sulfate 90 mcg/actuation 2 inh inhalation Q4-6H PRN 04/26/25 breath activated powder inhaler shortness of breath or wheezing #1 ea Allergies Allergy/AdvReac Type Severity Reaction Status Date / Time Seasonal Allergies Allergy Mild Unknown Verified 04/26/25 15:52 codeine AdvReac Mild Dizziness Verified 04/26/25 15:52 cats Allergy Mild itchy Uncoded 04/26/25 15:52 dogs Allergy Mild Unknown Uncoded 04/26/25 15:52 horses Allergy Mild Unknown Uncoded 04/26/25 15:52 tree pollen Allergy Mild seasonal Uncoded 04/26/25 15:52 allergies [facility] Past Medical History Attestation statement: The following information was validated with the patient. Source: old records reviewed and nursing notes reviewed Medical History Numbness and tingling of lower extremity Elevated liver enzymes Seasonal allergies Surgical History [place] teeth extracted Family History Family History Father No problems noted. Mother No problems noted. Maternal Grandfather CAD (coronary artery disease) Social History Social History Household Members: Family Housing: House Are you a primary care consultant to a significant other at home: No Do you presently have visiting nurse or other home services: No Alcohol intake: current Alcohol intake frequency: holidays/special occasions only Patient Tobacco Use Status: Never used Tobacco e-Cigarette/Vaping Use: Never Used Advance Directives: No Advance Directives Information Provided: Yes Do you have a plan to hurt others: No Plan service: No Current occupational status: employed Current occupation: [employer] Current occupational exposures/hazards: No Sexual orientation: Straight/Heterosexual Gender identity: Female Cognitive needs: No Hearing needs: No Vision needs: No Physical Exam Exam: Exam: Appearance: Alert.? Oriented X3.? No acute distress.? Head: Normocephalic, atraumatic, no step-offs or deformities Eyes: Pupils equal, round and reactive to light.? Neck: Normal inspection.? Neck supple.? CVS: Normal heart rate and rhythm.? Pulses normal.? Respiratory: No respiratory distress.? Breath sounds normal.? Abdomen: Soft and nontender.? Skin: Skin warm and dry.? Normal skin color.? Normal skin turgor.? Extremities: No lower extremity edema.? No calf ttp. 5/5 strength to bilateral upper and lower extremities Neuro: Oriented X 3.? No motor deficit.? No sensory deficit. CN 2-12 intact Vital Signs: Vital Signs: Last Vital Signs Temp 98.2 F 04/26/25 16:13 Pulse 73 04/26/25 17:49 Resp 21 H 04/26/25 17:49 BP 122/79 04/26/25 16:13 Pulse Ox 100 04/26/25 16:13 O2 Del Method Room Air 04/26/25 16:13 BMI result Body Mass Index 25.4 vss Course Course Course Narrative: Lilia Argueta HOME VISITOR 04/26 7623 This is a rapid medical exam. Deferred additional HPI, ROS, PE to primary provider. 24 yo female with history of asthma, vasovagal syncope here with SOB since this morning. No recent illnesses. Used albuterol once today with no change. LS CTA Will obtain viral testing, CXR VSS Reevaluation(s) Reevaluation #1: CBC unremarkable. Chemistry no acute findings requiring intervention. D-dimer negative. Flu, COVID negative. Chest x-ray unremarkable. EKG nonischemic. Troponin added, TSH added Time: 17:44 Reevaluation #2: Troponin, TSH still pending. Patient receiving a DuoNeb. This will be signed out to my colleague Felipe ALFONSO Time: 17:57 Reevaluation #3: Martin Deandra Elizabeth received signout pending repeat trop, TSH, and disposition. trop and tsh wnl. Patient's work up is reassuring. she is stable at this time and will be discharged home with outpatient follow up. Medications Administered Discontinued Medications Generic Name Dose Route Start Last Admin Trade Name Freq PRN Reason Stop Dose Admin Albuterol/Ipratropium 3 ml 04/26/25 17:49 04/26/25 17:53 Albuterol/Iprat 2.5/0.5mg 3 Ml Ampul.Neb INHALE 04/26/25 17:50 3 ml ONCE ONE Administration Medical Decision Making Medical Decision Making [facility] Narrative: 1725 24-year-old female presents with shortness of breath x1 day. Seems to be worse with exertion. Physical exam benign History and physical exam concerning for viral illness versus anxiety. Unlikely pneumonia, PE, ACS, dissection, acute hypoxic respiratory failure. Will rule out thyroid abnormalities. Plan labs, imaging, viral testing Differential Diagnosis Differential Diagnoses: The differential diagnosis associated with the presentation includes (History and physical exam concerning for viral illness versus anxiety. Unlikely pneumonia, PE, ACS, dissection, acute hypoxic respiratory failure. Will rule out thyroid abnormalities.) Admission/Observation Consideration of admission/observation: Escalation of care including admission/observation considered Lab Data MDM Lab Attestation statement: I reviewed the patient's lab results. 04/26/25 16:22 04/26/25 16:22 Labs: Lab Results 04/26/25 04/26/25 Range/Units 16:22 16:24 WBC 9.3 (4.8-10.8) X10*3/uL RBC 4.52 (4.20-5.50) X10*6/uL Hgb 13.5 (12.0-16.0) g/dl Hct 39.0 (37.0-47.0) % MCV 86.3 (80.0-98.0) fL MCH 29.9 (27.0-33.0) pg MCHC 34.6 (31.0-35.0) g/dl RDW 12.3 (11.0-16.0) % Plt Count 310 (160-400) X10*3/uL MPV 8.6 L (9.4-12.3) fL Immature Gran % (Auto) 0.2 (0.0-0.4) % Neut % (Auto) 57.9 (45-73) % Lymph % (Auto) 32.5 (20-40) % [place] % (Auto) 7.0 (2-11) % Eos % (Auto) 1.9 (0-4) % Baso % (Auto) 0.5 (0-2) % Lymph # (Auto) 3.0 (1.2-4.9) X10*3/uL [place] # (Auto) 0.7 (0.1-1.2) X10*3/uL Eos # (Auto) 0.2 (0.0-0.4) X10*3/uL Baso # (Auto) 0.1 (0.0-0.2) X10*3/uL Abs Immat Gran (auto) 0.02 (0.00-0.03) X10*3/uL Absolute Neuts (auto) 5.4 (2.0-8.3) x10*3/uL Absolute Nucleated RBC 0.000 (0.0-0.012) X10*3/uL Nucleated RBC % (auto) 0.0 (0.0-0.2) /100WBC D-Dimer High Sensitivty < 150 NG/ML Sodium 140 (135-145) mmol/L Potassium 3.5 (3.3-5.1) mmol/L Chloride 109 H (96-108) mmol/L Carbon Dioxide 22 (22-29) mmol/L Anion Gap 13 (12-20) BUN 8 L (9-16) mg/dL Creatinine 0.89 (0.5-1.4) mg/dL Estim Creat Clear Calc 85.1 Estimated GFR > 60 Random Glucose 101 (60-115) mg/dL Calcium 9.9 (8.4-10.2) mg/dL Total Bilirubin 0.3 (0.0-1.0) mg/dL AST 20 (5-31) U/L ALT 16 (0-31) U/L Alkaline Phosphatase 61 (39-117) U/L Troponin I High Sens < 2.7 (<3.5-17.0) ng/L Total Protein 7.6 (6.5-8.0) g/dL Albumin 5.0 (3.5-5.0) g/dL TSH 2.76 (0.32-4.0) uIU/mL Beta HCG, Quant < 2 mIU/mL COVID-19 (KRISSY) Negative (Negative) COVID-19 Clin Com See Note Influenza Type A (MELE) Negative (Negative) Influenza Type B (MELE) Negative (Negative) Influenza A & B Note See Note Independent Interpretation I performed an independent interpretation of an: EKG (Normal sinus rhythm with sinus arrhythmia Normal ECG No previous ECGs available) and Plain X-Ray ( Comparison: None provided Findings: The lungs are clear. Heart size is normal. No acute fracture. IMPRESSION: 1. No acute findings.) Radiology Impression Discussion of test interpretation with radiology: I have reviewed the radiologist's reading. External Record Review External record reviewed: Inpatient record, Office record, Outpatient record, Prior outpatient labs, Prior outpatient radiology, Primary care record and Outside ED record Chronic Conditions Patient?s care impacted by: Other (see hpi ) Critical Care Time Critical Care Time Critical Care Time: No Discharge Plan Discharge Clinical Impression: Shortness of breath Patient Disposition: Home, Self-Care Instructions: Asthma (ED) Additional Instructions: Take your medications as prescribed. If you were prescribed antibiotics today, it is important that you take your medication to their entirety, do not skip any doses, do not finish them early. Follow-up with your primary care provider this week. Return to the emergency department with new or worsening symptoms. Such as fevers, chills, chest pain, shortness of breath, nausea, vomiting, dizziness, headache, vision changes, lethargy In case of emergency call 911 Prescriptions: New albuterol sulfate 90 mcg/actuation aerosol powdr breath activated 2 inh inhalation Q4-6H PRN (Reason: shortness of breath or wheezing) Qty: 1 0RF No Action Arnuity Ellipta 200 mcg/actuation blister with device 1 inh inhalation DAILY 30 Days Qty: 1 3RF albuterol sulfate 90 mcg/actuation HFA aerosol inhaler 0 mcg inhalation fexofenadine [[facility] Allergy] 180 mg tablet 180 mg PO DAILY cholecalciferol (vitamin D3) 50 mcg (2,000 unit) capsule 50 mcg PO DAILY 90 Days Qty: 90 3RF multivitamin with iron Tablet 1 tab PO DAILY Qty: 90 0RF Referrals: Disha Clay, [employer] [Primary Care Provider, Internal Medicine] Stand Alone Forms: Work/School Release Print Language: Austrian
--- NOTE | 2025-04-26 15:58 | ECG_ITS ---
Test Reason : SOB/CP Blood Pressure : */* mmHG Vent. Rate : 66 BPM Atrial Rate : 66 BPM P-R Int : 136 ms QRS Dur : 82 ms QT Int : 388 ms P-R-T Axes : 68 53 46 degrees QTcB Int : 406 ms Normal sinus rhythm with sinus arrhythmia Normal ECG No previous ECGs available Referred By: Generic ED Physician Electronically Signed By: Trey Matt
--- OUTSIDE RECORDS SUMMARY | 2025-04-26 16:10 | XMS_ITS | Data Portability ---
Author Organization [place] - [facility], [facility] Address [address] [place] [address] Assessment Encounter Date Assessment Date Assessment LastModified [...] will give referral today. 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 Gets STI testing yearly though [employer] lens grinder apprentice, will defer today. Lactose intolerance - avoids milk, will take calcium supplement Not available 09/09/2020 21:22:01 Plan of Treatment Reminders Order Date Submit Date Provider Last Modified By Organization Details Last Modified Time Details Appointments None recorded. Lab PPD (purified protein derivative) , skin test 2018 019 [facility], [address] [place] [address], [id number], 9 10:06:23 lipid panel, blood 2018 [facility], [address] [place] [address], [id number], 9 11:06:11 rapid strep group A, throat 2018 019 [facility], [address] [place] [address], [id number], 9 09:49:42 culture, throat 2018 [facility], [address] [place] [address], [phone], 9 09:49:42 Referral internal medicine referral 2020 [...] DP PULSES BILAT. GOOD CAP RETURN. 2017 [facility], [address], [facility] [address], [place], [address], 8 16:33:08 Medication Orders Tubersol 5 tub. unit/0.1 mL intradermal injection solution 2018 [email or web address] Not available 14:23:42 amoxicillin 500 mg capsule 2018 [email or web address] 0 [facility], [address] [place], [address], 10:17:23 Patient TargetsNo targets recorded. Patient Instructions Encounter Date Encounter Id Patient Instructions Last Modified By Organization Details Last Modified Time 06/07/2018 [id number] WILL REF TO ER T O R/O DVT. IF NEG, WILL USE HEAT/ALLEVE 330 BID FOR 5 DAYS/GENTLE MASSAGE/CRUTCHES WITH PROGRESSIVE WT BEARING. [email or web address] Not available 06/07/2018 15:26:58 09/18/2018 [id number] SX CARE [email or web address] Not available 09/18 09:49:49 07/25/2019 [id number] program - 5 fruits & veggies Not available 07/25/2019 10:49:38 5210 program - 1 hour of exercise Not available 07/25/2019 10:49:38 patient health questionnaire depression assessment* Not available 07/25/2019 10:49:38 immunization: wh at you need to know Not available 07/25/2019 10:49:38 09/09/2020 [id number] 4810 program - 5 fruits & veggies Not [...] sment * PHQ-9 negati ve Not Available [facility] [address] [place] [address], [phone], 09/08/2020 16:02:50 07/25/20 19 07/25/2019 patie nt healt h quest ionna angelia depre ssion asses sment * PHQ-9 negati ve Not Available [facility] [address] [place] [address], [phone], 07/25/2019 08:10:01 09/18/19 19 09/18/2018 cultu re, throa t Result 24 HR negati ve Not Available [facility] [address] [place] [address], [id number], 09/18/2018 09:34:32 09/18/19 19 09/18/2018 cultu re, throa t Result 48 HR negati ve Not Available [facility] [address] [place] [address], [phone], 09/18/2018 09:34:32 09/18/19 19 09/18/2018 rapid strep group A, throa t Rapid Strep negati ve Not Available [facility] [address] [place] [address], [id number], 09/18/2018 09:34:31 07/27/20 19 07/27/2019 PPD (joseph fied prote in deriv ative ), skin test Result negati ve Not Available [facility] [address] [place] [address], [phone], 07/25/2019 08:18:10 07/27/20 19 07/27/2019 PPD (joseph fied prote in deriv ative ), skin test Induration mm 0mm Zane d , Read by Arnold judge, RN Not Available [facility] [address] [place] [address], [id number], 07/25/2019 08:18:10 01/21/20 21 01/20/2021 PPD (joseph fied prote in deriv ative ), skin test Result negati ve Not Available [facility] [address] [place], [address], 01/18/2021 10:32:51 01/21/20 21 01/20/2021 PPD (joseph fied prote in deriv ative ), skin test Induration mm 0 Not Available [facility] [address] [place] [address], [phone], 01/18/2021 10:32:51 06/07/20 18 US, lower leg No observ ation record ed. [email or web address] [facility] [address], [place], [address], 06/07/2018 17:52:11 06/07/20 18 06/07/2018 US, lower leg No observ ation record ed. [email or web address] Not Available 2017 17:52:37 Result Notes None recorded. Problems Name Problem SNOMED Code Status Onset Date Resolution Date Notes Provider Name and Address Organization Details Recorded Time Anxiety 29441223 Active Alyx damon [place] [facility] 5 15:33:21 Vomiting 949725366 Completed 04/27/2014 Alyx damon [facility] 4 14:29:21 Pain in throat 477326610 Completed 07/10/2011 Not Available [facility] 3 03:03:10 Viral disease 47521222 Completed 09/29/2011 Not Available [facility] 3 03:01:20 Viral disease 60884890 Completed 07/10/2011 Not Available [facility] 3 03:01:20 Streptococ janie sore throat 27122942 Completed 07/10/2011 Not Available [facility] 3 03:01:20 Acute conjunctiv itis 13624386 Completed 200607/10/2011 Not Available [facility] 3 03:01:20 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 Medical [...] Per age and sex Body weight Systolic And Diastolic Provider Name and Address Organization Details Last Updated DateTime 09/09/2020 161.92 cm 23.5 kg/m2 68 % 90889.8 4 g 120/60 mm[Hg] Sandy Perales [facility] 14:22:58 Date Recorded Body weight Body temperature Provider N veronika and Address Organization Details Last Updated DateTime 09/18/2018 71609.47 g 98.2 [degF] Dottie Martin L.P.N [facility] 09/18/2018 09:30:39 Date Recorded Body weight Provider Name an d Address Organization Details Last Updated DateTime 02/26/2018 77613.97 g Carol Fisher L.P.N. [facility] 02/26/2018 11:35:13 Date Recorded Body height Body mass index (BMI) [Percentile] Per age and sex Body mass index (BMI) Body weight Systolic And Diastolic Provider Name and Address Organization Details Last Updated DateTime 07/25/2019 161.92 cm 41 % 20.9 kg/m2 12504.6 8 g 122/70 mm[Hg] Janee Flood [facility] 9 10:24:50 Social History Question Answer Notes LastModified by Organizat ion Details LastModified Time Tobacco Smoking Status Never Smoker Calos Garcia, [facility] 04/27/2014 14:09:40 Have There Been Any Changes To Your Family Or Social Situation? No Information not available 07/09/2017 Hard Of Hearing Or Deaf In One Or Both Ears? No Information not available 07/09/2017 Legally Blind In One Or Both Eyes? No Information not available 07/09/2017 Parent's Marital Status As Of 09/09 Information not available 06/03/2011 Home Situation Mother And See Dad Occasionally [id number] Information not available 06/03/2011 Siblings Names And Birthdates OLI (M) 03/01/04 Information not available 06/03/2011 Year In School [employer] [facility] [place] Information not available 07/25/2019 Parent's Name GINA [...] and Address Organization Details Recorded Time Novel [id number], nasal 9 completed Not Available [facility] 08/16/2019 02:34:48 Hib, unspecified formulation 1 completed Not Available [facility] 06/03/2011 03:19:20 IPV 5 completed Not Available [facility] 06/03/2011 03:18:24 DTaP, unspecified formulation 1 completed Not Available [facility] 06/03/2011 03:18:24 pneumococcal conjugate PCV 7 0 completed Not Available [facility] 06/03/2011 03:18:24 DTaP, unspecified formulation 1 completed Not Available [facility] 06/03/2011 03:19:20 pneumococcal conjugate PCV 7 1 completed Not Available [facility] 06/03/2011 03:18:24 DTaP, unspecified formulation 0 completed Not Available [facility] 06/03/2011 03:18:24 Hep B, unspecified formulation 1 completed Not Available [facility] 06/03/2011 03:18:24 Hib, unspecified formulation 2 completed Not Available [facility] 06/03/2011 03:18:24 IPV 2 completed Not Available [facility] 06/03/2011 03:19:20 DTaP, unspecified formulation 2 completed Not Available [facility] 06/03/2011 03:18:24 MMR 4 completed Not Available [facility] 06/03/2011 03:18:24 Hib, unspecified formulation 1 completed Not Available [facility] 06/03/2011 03:18:24 Hep B, unspecified formulation 0 completed Not Available [facility] 06/03/2011 03:19:20 Hep B, unspecified formulation 0 completed Not Available [facility] 06/03/2011 03:18:24 pneumococcal conjugate PCV 7 1 completed Not Available [facility] 06/03/2011 03:18:24 MMR 2 completed Not Available [facility] 06/03/2011 03:18:24 IPV 0 completed Not Available [facility] 06/03/2011 03:19:20 pneumococcal conjugate PCV 7 1 completed Not Available [facility] 06/03/2011 03:18:24 Hib, unspecified formulation 0 completed Not Available [facility] 06/03/2011 03:18:24 IPV 1 completed Not Available [facility] 06/03/2011 03:18:24 Influenza, split virus, trivalent, preservative 1 completed Not Available [facility] 08/16/2019 02:35:18 meningococcal MCV4P 1 completed Not Available [facility] 08/16/2019 02:33:28 Tdap 1 completed Not Available [facility] 08/16/2019 02:33:37 HPV, quadrivalent 1 completed Not Available [facility] 08/16/2019 02:33:59 Influenza, split virus, trivalent, preservative 9 completed Not Available [facility] 08/16/2019 02:34:44 Influenza, live, quadrivalent, intranasal 3 completed Not Available [facility] 08/16/2019 02:35:32 HPV, quadrivalent 3 completed Not Available [facility] 08/16/2019 02:34:09 influenza, unspecified formulation 8 completed Not Available [facility] 06/03/2011 03:16:44 influenza, unspecified formulation 8 completed Not Available [facility] 06/03/2011 03:16:44 Influenza, live, quadrivalent, intranasal 4 completed Not Available [facility] 08/16/2019 02:35:49 HPV, quadrivalent 4 completed Not Available [facility] 08/16/2019 02:34:14 Influenza, live, quadrivalent, intranasal 5 completed Not Available [facility] 08/16/2019 02:36:17 influenza, unspecified formulation 7 completed Calos Blackwood [facility] 07/09/2017 13:59:34 meningococcal MCV4P 6 completed Not Available [facility] 08/16/2019 02:37:13 Influenza, split virus, quadrivalent, PF 6 completed Not Available [facility] 08/16/2019 02:37:11 Td (adult), 5 Lf tetanus toxoid, preservative free, adsorbed 7 completed Not Available [facility] 08/16/2019 02:38:29 Influenza, split virus, quadrivalent, preservative 9 completed Calos Garcia [facility] 07/02/2019 12:23:16 Influenza, split virus, quadrivalent, preservative 0 completed Calos Garcia [facility] 05/03/2020 08:58:50 meningococcal B, OMV 9 completed Not Available [facility] 08/16/2019 02:39:39 meningococcal B, OMV 0 completed Meghann Mckinney [facility] 09/03/2019 11:14:45 Hep A, adult 1 completed Sandy damon [place] - [facility] 09/09/2020 15:03:53 DTaP, unspecified formulation 5 completed Not Available [facility] 06/03/2011 03:17:07 varicella 1 completed Not Available [facility] 06/03/2011 03:17:07 influenza, unspecified formulation 7 completed Not Available [facility] 06/03/2011 03:16:44 varicella 7 completed Not Available [facility] 06/03/2011 03:16:44 Influenza, split virus, trivalent, preservative 0 completed Not Available [facility] 08/16/2019 02:35:07 Past Encounters Encounter ID Performer Location Encounter Start Date Encounter Closed Date Diagnosis/Indication Diagnosis SNOMED-CT Code Diagnosis ICD10 Code Diagnosis IMO Codes Diagnosis Note [id number] Roland Wells MD [place] [address] 05/27/2007 14:41:47 05/27/2007 15:32:17 [id number] Roland Wells MD [place] [address] 2 06/28/2007 09:43:21 06/28/2007 11:29:14 [id number] Roland Wells MD [place] [address] 2 07/04/2007 16:13:29 07/04/2007 16:55:27 [id number] Alyx Santo PNP, SLIVER CHOPPER, PhD [place] [address] 2 10/28/2007 17:04:44 10/28/2007 17:06:26 [id number] Roland Wells MD [place] [address] 2 06/04/2008 14:44:20 06/04/2008 16:01:20 [id number] KONRAD [place] [address] 07/02/2008 15:13:36 07/02/2008 15:23:21 [id number] Roland Wells MD [place] [address] 2 07/31/2008 12:04:16 07/31/2008 12:31:00 [id number] Sharon Richter MD PVP [place] [address] 08/28/2008 15:12:48 08/28/2008 16:24:20 [id number] Roland Wells MD P[facility] [place] [address] 2 01/25/2009 09:20:02 01/25/2009 10:27:40 [id number] Roland Wells MD [facility] [place] [address] 2 06/30/2009 15:12:17 06/30/2009 16:20:43 [id number] Tiana Shook MD [facility] [place] [address] 2 09/30/2009 16:34:41 09/30/2009 17:36:03 [id number] Roland Wells MD P[facility] [place] [address] 2 06/16/2010 15:05:20 06/16/2010 17:05:14 [id number] Nicol Ham MD PVP [address] [address] 09/24/2010 10:53:36 09/24/2010 11:33:57 [id number] Donita Kebede MD PVP [place] [address] 2 10/27/2010 13:44:37 10/27/2010 15:01:46 [id number] Tiana Shook MD PVP [place] [id number] 11/08/2010 08:57:08 11/08/2010 09:45:36 [id number] Roland Wells MD [facility] [place] [address] 2 07/10/2011 15:55:46 07/10/2011 17:49:29 [id number] Roland Wells MD P[facility] [place] [address] 2 07/27/2011 13:21:44 07/27/2011 14:19:31 [id number] Roland Saenz MD [facility] [address] [facility] [place] [address] 09/17/2011 10:46:21 09/17/2011 11:34:15 [id number] Roland Wells MD [place] [address] 2 09/29/2011 13:23:54 09/29/2011 14:26:34 [id number] Roland Wells MD [place] [address] 2 04/25/2013 15:07:19 04/25/2013 16:58:43 Well child 492915987 Developmen chula academic disorder 8371572 Anxiety 01595852 [id number] Roland Wells MD [place] [address] 2 03/27/2014 10:07:08 03/27/2014 13:36:16 Anxiety 53017648 [facility] 123838296 [id number] Alyx GRECO, SLIVER CHOPPER, PhD [place] [address] 2 04/27/2014 14:01:58 04/27/2014 17:32:39 Well child 716317622 Anxiety 29835262 [id number] Alyx GRECO, SLIVER CHOPPER, PhD [place] [address] 2 03/29/2015 14:50:41 03/29/2015 17:13:12 Anxiety 78731476 [id number] Alyx GRECO, SLIVER CHOPPER, PhD [place] [address] 2 05/03/2015 16:28:54 05/03/2015 17:18:53 Influenza vaccine needed 3768307396 106 Z23 Anxiety 77334331 F41.9 [id number] Alyx GRECO, SLIVER CHOPPER, PhD [place] [address] 2 05/24/2015 14:30:17 05/24/2015 17:31:31 Well child 689009664 Z00.129 Anxiety 69626562 F41.9 much improved with hypnosis [id number] Alyx GRECO, SLIVER CHOPPER, PhD [place] [address] 2 07/06/2015 14:50:24 07/06/2015 16:47:40 Anxiety 98156010 F41.9 much improved with hypnosis [id number] Alyx GRECO, SLIVER CHOPPER, PhD [place] [address] 2 01/25/2016 16:25:19 01/25/2016 17:32:25 Anxiety 23182073 F41.9 [id number] Alyx GRECO, SLIVER CHOPPER, PhD [place] [address] 2 02/21/2016 14:50:27 02/21/2016 16:33:54 Anxiety 22615933 F41.9 [id number] Alyx GRECO, SLIVER CHOPPER, PhD [place] [address] 2 06/13/2016 14:38:48 06/13/2016 16:07:13 Active or passive immunization 276264236 Z23 Well child 235833347 Z00 .129 [id number] Gavino Presley MD [place] [address] 2 11/20/2016 10:20:43 11/20/2016 12:39:31 Cough 20776339 R05 2 weeks of cough. Not responding to azithromyc in as prescribed by urgent care. Suspect viral illness with lingering bronchospa stic cough.Will DC hydromorph one, do trial of albuterol to see if this provides symptomati c relief.Rec heck if no improvemen t by the end of the week. [id number] Alyx GRECO APRN, PhD [place] [address] 2 07/09/2017 13:53:33 07/10/2017 08:20:40 Well child 423875191 Z00.129 Unintentio nal weight loss 365230447 R63.4 Anxiety 23806651 F41.9 much improved since hypnosis - uses strategies that she learned [id number] Tiana Shook MD [place] [address] 2 10/04/2017 11:03:23 10/04/2017 12:05:30 Concussion injury of brain 998362332 S06.0X0A [id number] Tiana Shook MD [place] [id number] 12/20/2017 16:21:23 12/21/2017 13:22:22 Abdominal pain 25152332 R10.9 [id number] Tiana Shook MD [place] [address] 2 02/26/2018 11:26:46 02/26/2018 12:12:57 Abdominal pain 30986051 R10.9 [id number] Roland Wells MD [place] [address] 2 06/07/2018 14:17:59 06/07/2018 15:48:36 Muscle pain 35865701 M79.10 Pain in ri ght lower limb 760684595 M79.604 [id number] Roland Wells MD [place] [address] 2 09/18/2018 09:26:29 09/18/2018 09:54:04 Acute pharyngitis 778681254 J02.9 Acute fron chula sinusitis 66394550 J01.10 [id number] Cynthia Phillips MD [place] [address] 2 07/25/2019 10:00:57 07/25/2019 13:04:21 Active or passive immunization 247627921 Z23 Adult heal th examination 041324112 Z00.00 Normal bod y mass index 59678646 Z68.20 Tuberculos is screening 260781976 Z11.1 Acquired l actase deficiency 37420877 E73.1 [id number] Cynthia Phillips MD [place] [address] 2 09/09/2020 14:16:53 09/10/2020 08:12:56 Diet education 09057561 Z71.3 Exercises education, guidance, and counseling 945699138 Z71.82 Normal bod y mass index 58424461 Z68.23 Adult heal th examination 507875172 Z00.00 Active or passive immunization 775753347 Z23 Health Concerns Section Related Observation LastModified by Organization Detai ls LastModified Time None Recorded Concern Status LastModified by Organization Details LastModified Time None Recorded Advance Directives Directive None Recorded Payers Insurance Date Sequence Insurance Name Policy Number Policy Rose Covered Member ID Rose Member ID Guarantor Name 01/14/2021 1 [place] [id number] Sachi Parmar Jr [id number] Sachi Parmar 09/23/2020 1 [place] PREFERRED [place]) [id number] Sachi Parmar Jr [id number] Sachi Parmar Notes Date Note Type Note Provider Name and Address Organization Details Recorded Time 02/26/2018 text/html RS Sick Visit Narrative HistoryReported by PatientRECHECK ABD PAIN, STOMACH ACHES HAVE IMPROVED. TOOK [...] joint issues or other rash.Labs were all nl.ROS as noted in the HPI Tiana Shook MD [address] [place] [address], , [facility] 02/26/2018 12:03:09 06/07/2018 text/html RS Sick Visit Narrative HistoryReported by PatientWENT TO THE GYM 05-29-18 FOR THE FIRST [...] SHARP WITH CERTAIN MOVEMENT. Roland Wells MD [address] [place] [address], , [facility] 06/07/2018 15:33:33 09/18/2018 text/html RS Sick Visit Narrative HistoryReported by PatientST, NASAL CONGESTION AND RUNNY NOSE X2 WEEKS. [...] THE PAST 4-5 DAYS. Roland Wells MD [address] [place] [address], [phone], [facility] 09/18/2018 09:50:09 07/25/2019 text/html pt complains of experiencing diarrhea when consuming milkNo issues with cheese, doesnt really eat yogurtSometimes issues with ice creamdrinking almond milk CYNTHIA damon, [facility] 07/25/2019 12:34:50 OBGyn Episode No OBEpisode recorded.
--- OUTSIDE RECORDS SUMMARY | 2025-04-26 16:11 | XMS_ITS | Clinical Summary ---
Author Organization [facility] Address [address] [place] [address] Care Team Providers Care Credit Support Counselor Name Role Phone Unavailable Primary Care Provider [...] Cervical Cancer Screening: P ap Smear 2021 HIV Screening 02/26/2024 Hepatitis C Screening 02/26/2024 Social Influencers of Health Screening 02/26/2024 Depression Screening 07/30/2024 COVID-19 Vaccine ( - 2023-2 5 season) 2025 Influenza Vaccine (#1) 2025 HIB Vaccines Aged Out No longer [...] 5 Years) and At-Risk Patients (6 to 49 Years) Aged Out No longer eligible b ased on patient's age to complete this topic RSV Immunization Patients Un damian 20 months Aged Out No longer eligible b ased on patient's age to complete this topic Varicella Vaccines Aged Out No longer eligible based on patient's age to complete this topic
[2025-04-26 16:13] VITALS: BP 122/79; PULSE 76; RESP 20; TEMP 36.8; O2SAT 100
[2025-04-26 16:28] LABS: MANUAL DIFF FLAG NO
[2025-04-26 16:31] LABS: Hematocrit 39.0 % (37.0-47.0); Hemoglobin 13.5 g/dl (12.0-16.0); Imm Gran Abs Auto 0.02 X10*3/uL (0.00-0.03); Imm Gran Pct Auto 0.2 % (0.0-0.4); Lymphocytes Absolute Auto 3.0 X10*3/uL (1.2-4.9); Mean Corpuscular HGB Conc 34.6 g/dl (31.0-35.0); Mean Corpuscular Hemoglobin 29.9 pg (27.0-33.0); Mean Corpuscular Volume 86.3 fL (80.0-98.0); NRBC Abs Auto 0.000 X10*3/uL (0.0-0.012); NRBC Pct Auto 0.0 /100WBC (0.0-0.2); Platelet Count 310 X10*3/uL (160-400); Red Blood Count 4.52 X10*6/uL (4.20-5.50); White Blood Count 9.3 X10*3/uL (4.8-10.8)
[2025-04-26 16:44] LABS: Alanine Aminotransferase 16 U/L (0-31); Albumin Level 5.0 g/dL (3.5-5.0); Alkaline Phosphatase 61 U/L (39-117); Anion Gap 13 (12-20); Aspartate Amino Transferase 20 U/L (5-31); Blood Urea Nitrogen 8 mg/dL (9-16); Calcium 9.9 mg/dL (8.4-10.2); Carbon Dioxide 22 mmol/L (22-29); Chloride 109 mmol/L (96-108); Creatinine Clr Calc Pharmacy 85.1; Estimated Glomerular Filt Rate > 60; Potassium 3.5 mmol/L (3.3-5.1); Sodium 140 mmol/L (135-145); Total Protein 7.6 g/dL (6.5-8.0)
[2025-04-26 16:47] LABS: COVID-19 Test Negative (Negative); D Dimer High Sensitivity < 150 NG/ML; IDNOW Serial# 55D5AD1C; IDNOW Serial# 58CA691E; Influenza B2 Negative (Negative)
[2025-04-26 17:49] VITALS: PULSE 73; RESP 21; O2SAT 100
[2025-04-26] MEDS: Albuterol/Iprat 2.5/0.5MG 3 ML AMPUL.NEB INHALE (17:53)
[2025-04-26 18:05] LABS: Troponin-I High Sensitivity < 2.7 ng/L (<3.5-17.0)
[2025-04-26 18:13] LABS: Thyroid Stimulating Hormone 2.76 uIU/mL (0.32-4.0)
[2025-04-26 19:42] VITALS: BP 107/71; PULSE 81; RESP 16; TEMP 36.9; O2SAT 98
[2025-04-26 19:46] VITALS: BP 107/71; PULSE 81; RESP 16; TEMP 36.9; O2SAT 98
== END 2025-04-26 19:46 | disposition home or self-care (01) ==
PROVIDERS: Nurse Practitioner Family; Physician Assistant; Emergency Provider Emergency Medicine Emergency Medical Services; PCP Nurse Practitioner Family
DX: R06.02 Shortness of breath (principal); F41.9 Anxiety disorder, unspecified
CPT/HCPCS: 36415; 71046; 80053; 84443; 84484; 84702; 85025; 85379; 87502; 87635; 93005; 94640; 99284; 99285

== ENCOUNTER → 2025-04-26 15:52 | Outpatient (BNV) | payer OTHER, SELFPAY | PROVIDERS: Emergency Provider Emergency Medicine Emergency Medical Services; PCP Nurse Practitioner Family; Visit Provider Radiology Diagnostic Radiology | DX: R05.9 Cough, unspecified (principal); R06.02 Shortness of breath | CPT/HCPCS: 71046 ==

== ENCOUNTER → 2025-04-26 15:58 | Outpatient (BNV) | payer OTHER, SELFPAY | PROVIDERS: Emergency Provider Emergency Medicine Emergency Medical Services; PCP Nurse Practitioner Family; Visit Provider Internal Medicine Cardiovascular Disease | DX: R06.02 Shortness of breath (principal); R07.89 Other chest pain | CPT/HCPCS: 93010 ==

== ENCOUNTER 2025-06-17 08:57 | Outpatient (AMB) | payer OTHER, SELFPAY ==
[2025-06-17 09:04] VITALS: BP 110/64; PULSE 88; O2SAT 99; BMI 25.8
--- NOTE | 2025-06-17 09:04 | MHC.OFFVIS ---
Vital Signs 06/17/25 09:04 Height 5 ft 2 in Weight 141 lb 1.533 oz BMI 25.8 BP 110/64 Blood Pressure Location Lt brachial Position Sitting Pulse 88 Pulse Source Pulse Oximeter Pulse Oximetry (%) 99 Oxygen Delivery Method Room Air Intake Visit Reasons: Asthma Intake Note: pt is here as a new patient for asthma, she had covid x4 and now has shortness of breath with pushing and going up stairs, she does have an issue where she is wondering about pots. Surface Supply Breathing Apparatus Required: No Sign Language Interpreter: Sign Language Interpreter offered & declined Allergies Seasonal Allergies Allergy (Mild, Verified 06/17/25 09:08) Unknown codeine Adverse Reaction (Mild, Verified 06/17/25 09:08) Dizziness cats Allergy (Mild, Uncoded 06/17/25 09:08) itchy dogs Allergy (Mild, Uncoded 06/17/25 09:08) Unknown horses Allergy (Mild, Uncoded 06/17/25 09:08) Unknown tree pollen Allergy (Mild, Uncoded 06/17/25 09:08) seasonal allergies Medication List - Last Reconciled 06/17/25 by Helen Marino MD albuterol sulfate 90 mcg/actuation 2 inhalations inhalation Q4-6H PRN albuterol sulfate 90 mcg/actuation 0 mcg inhalation cholecalciferol (vitamin D3) 50 mcg PO DAILY 90 days fexofenadine (Wendie Allergy) 180 mg PO DAILY fluticasone furoate 200 mcg/actuation (Arnuity Ellipta) 1 inh inhalation DAILY 30 days multivitamin with iron 1 tab PO DAILY HPI Comments Details: This 25 years old female patient, is being seen for the 1st time for pulmonary evaluation and management 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 Main complaint is ongoing nasal congestion almost on a daily basis.. And intermittent shortness of breath, usually brought on by heavy exertion such as pushing wheelchair a stretcher or doing any heavy work at home. She has no audible wheezes and also cough is minimal. All the symptoms started after she had COVID infection in 2018, 2020 and 24 ( 4 times ) In 2020 she had allergy testing by skin tests,, found to be allergic to cats dogs horses ( mostly the animal ) She did have immunotherapy injections almost for a year without any improvement , and then she decided to give up on this mode of treatment. She uses fexofenadine 24 hours once a day almost daily, was not able to use Flonase because it caused nasal bleeding. For question of bronchial asthma, she was prescribed Flovent, but she used it mostly off and on as a rescue inhaler. She also has been prescribed albuterol HFA which she uses PRN. Again as noted above she does not have any attacks of wheezing or cough. Main symptom is getting or feeling of short of breath if she pushes something heavy or climbs stairs. ( suggestive of exertional asthma ) She has had pulmonary function test on 05/25/25 and it is essentially normal , except for the observation that there was improvement in FEF 25-75 after bronchodilator therapy, suggesting mild reversible bronchospasm in the smaller airways c/w very mild bronchial asthma. She has had a chest x-ray recently which was normal. [facility] Medical History Numbness and tingling of lower extremity Elevated liver enzymes Seasonal allergies Surgical History [place] teeth extracted Family History Father No problems noted. Mother No problems noted. Maternal Grandfather CAD (coronary artery disease) Social History Household Members: Family Both parents involved: Yes Caregiver staying overnight: No Housing: House Are you a primary senior care specialist to a significant other at home: No Do you presently have visiting nurse or other home services: No 75 years or older and lives alone: No Alcohol intake: current Alcohol intake frequency: holidays/special occasions only Patient Tobacco Use Status: Never used Tobacco e-Cigarette/Vaping Use: Never Used service: No Current occupational status: employed Current occupation: [employer] Current occupational exposures/hazards: No Sexual orientation: Straight/Heterosexual Gender identity: Female Cognitive needs: No Hearing needs: No Vision needs: No Review of Systems Const All systems reviewed & are unremarkable except as noted in HPI and below Eyes Reports no additional complaints ENT Reports nasal congestion and Reports nasal discharge Card Reports no additional complaints Resp Reports as per HPI GI Reports no additional complaints Reports no additional complaints Musc Reports no additional complaints Skin/Breast Reports system reviewed and no additional complaints, except as documented Neuro Reports no additional complaints Psych Reports no additional complaints Endo Reports no additional complaints Nilesh/Lymph Reports no additional complaints Aller/Immun Reports no additional complaints Physical Exam Vital Signs: Last Vital Signs Pulse 88 06/17/25 09:04 BP 110/64 06/17/25 09:04 Pulse Ox 99 06/17/25 09:04 Oxygen Delivery Method Room Air 06/17/25 09:04 BMI result Body Mass Index 25.8 Const General: healthy appearing, comfortable, no acute distress, alert and awake Orientation/consciousness: patient oriented x3 HEENT Head: Yes normal to inspection General nose exam: No nasal polyps present, No nasal discharge present and Other nasal findings present (Only mild nasal congestion, at this time) Face and sinus: Yes sinuses nontender Mouth: oropharynx normal Throat: Yes posterior oropharynx normal Eyes General: appearance normal, both eyes and all related structures Neck Neck: Yes normal visual inspection, Yes no lymphadenopathy, Yes trachea midline and Yes no JVD Thyroid: Thyroid normal Chest Chest palpation & inspection: normal inspection of the chest, normal palpation of entire chest wall and no tenderness Resp Effort & Inspection: normal respiratory effort Auscultation: clear to auscultation bilaterally, no crackles, no rhonchi and no wheezes Cardio Palpation: normal PMI Rate: regular rate Rhythm: regular rhythm Heart sounds: no gallops and no murmurs Peripheral pulses: Peripheral pulses 2+ throughout GI Palpation (GI): Soft to palpation, nontender, No hepatosplenomegaly present and no masses Auscultation: normal bowel sounds Rectal Exam - Female: No Excoriation present (GI) Back/Spine/Pelvis Thoracic/Lumbar Spine: thoracic and lumbar spine normal to inspection Skin General skin exam: no rashes or lesions noted Neuro General: patient oriented x3 and no focal motor deficits Cranial nerves: Yes CN's II-XII intact bilaterally Extrem General: Yes normal to inspection, Yes no clubbing, cyanosis or edema and Yes no calf tenderness Psych Speech and movement: Normal speech and movement present Assessment & Plan Assessment & Plan (1) Mild intermittent asthma in adult without complication: Comment: History is consistent with mild intermittent bronchial asthma. It is possible that she has exercise induced bronchial asthma. Symptoms starting after she had COVID infection a few times, indicates that she may have been over sensitized with COVID infection. Code(s): J45.20 - Mild intermittent asthma, uncomplicated Category: Medical Plan: At this stage she needs inhaled steroids, has a controller agent and albuterol HFA 2 puffs Q 4-6 hours only p.r.n.. I explained to her that for possibility of exercise induced asthma, the best thing is to stop and take rest and few deep breaths, but if the feeling of shortness of breath persists then she can use albuterol 1 or 2 puffs. I have sent a prescription for Arnuity Ellipta 200 mg once a day. (2) Allergic rhinitis: Comment: Patient does have ongoing nasal congestion and postnasal discharge almost on a daily basis. This is also on the basis of allergy. Skin testing has shown that she is allergic to mostly animals dogs horses and tree pollen. She had no benefit from immunotherapy injection. Now using fexofenadine 180 mg once a day p.r.n.. Code(s): J30.9 - Allergic rhinitis, unspecified Category: Medical Qualifiers: Allergic rhinitis trigger: animal hair and dander Qualified Code(s): J30.81 - Allergic rhinitis due to animal (cat) (dog) hair and dander Plan: I explained to her that allergic rhinitis/sinusitis and bronchial asthma are 1 and the same disease. The ideal treatment would be fluticasone nasal spray but she does not tolerate that. So it is okay to use fexofenadine. But I think it will be better to use it PRN. Other option would be to start her on montelukast 10 mg daily, but will wait at this time . We will keep in mind future biologic treatment. But so far she does not qualify as her eosinophil count is normal. Patient was mainly educated about her allergic rhinitis/bronchial asthma and she feels much more comfortable after the discussion. Medications: New fluticasone furoate 100 mcg/actuation (Arnuity Ellipta) 1 inh inhalation DAILY 30 ea 4RF asthma 30 days Coding Level of Care Code New Pt Level 3 (34389) Diagnoses Mild intermittent asthma in adult without complication J45.20 Allergic rhinitis due to animal hair and dander J30.81 Allergic rhinitis trigger: animal hair and dander
--- OUTSIDE RECORDS SUMMARY | 2025-06-17 16:40 | XMS_ITS | Clinical Summary ---
Author Organization [facility] ity Address [address] [place] [address] Care Team Providers Care Air Pollution Inspector Name Role Phone Unavailable Primary Care Provider Unavailabl e Social History Tobacco Use Types Packs/Day Years Used Date Smoking Tobacco: Never Assessed Comments Unknown Sex and Gender Information Value Date Recorded Sex Assigned at Not on file Legal Sex Female 8:47 PM EST Gender Identity Not on file Sexual Orientation Not on file Plan of Treatment Health Maintenance Due Date Last Done Comments HPV Vaccines (1 - 3-dose series) 2015 DTaP,Tdap,and Td Vaccines (1 - Tdap) 2019 Hepatitis B Vaccines (1 of 3 - 19+ 3-dose series) 2019 Cervical Cancer Screening: P ap Smear 2021 HIV Screening 02/26/2024 Hepatitis C Screening 02/26/2024 Social Influencers of Health Screening 02/26/2024 Depression Screening 07/30/2024 COVID-19 Vaccine (1 - 2024-2 6 season) 2025 Influenza Vaccine (#1) 2025 RSV Immunization Adult Patie nts (1 - 1-dose 75+ series) 2075 HIB Vaccines Aged Out No longer eligi [...]
== END 2025-06-17 09:28 | disposition home or self-care (01) ==
LOC: HO.HPS 08:58
PROVIDERS: PCP Nurse Practitioner Family; Visit Provider Internal Medicine
DX: J45.20 Mild intermittent asthma, uncomplicated (principal); J30.81 Allergic rhinitis due to animal (cat) (dog) hair and dander
CPT/HCPCS: 99203

== ENCOUNTER 2025-06-21 00:07 | Emergency (ER) | payer OTHER, SELFPAY ==
--- NOTE | ~2025-06-21 | CT_ITS ---
CLINICAL HISTORY: right flank pain, R O kidney stone CT abdomen and pelvis without contrast Comparison: None provided. Findings: No consolidation or effusion. The liver is enlarged. The liver appears normal in contour. The gallbladder and solid organs are otherwise within normal limits. No renal stones. No left hydronephrosis or left hydroureter. 3 mm obstructing calculus present at the right ureterovesicular junction with mild right hydroureter and mild right hydronephrosis. There is mild right perinephric fat stranding. No bowel obstruction, pneumoperitoneum, or pneumatosis. Mildly limited evaluation of the stomach related to gastric underdistention. Tiny, fat containing umbilical hernia present. Pelvic contents unremarkable. The bladder is minimally distended with fluid, limiting its evaluation. There is mild bladder wall thickening. Normal appendix. No acute fracture visualized. IMPRESSION: 3 mm obstructing calculus present at the right ureterovesicular junction with mild right hydroureter and mild right hydronephrosis. Mild bladder wall thickening. This is nonspecific and may be related to bladder underdistention. Mild cystitis may have a similar appearance. Hepatomegaly. This document has been electronically signed by: Donato Mancera MD on 06/21/2025 02:50:56
[2025-06-21 00:09] VITALS: BP 126/81; PULSE 86; RESP 20; TEMP 36.7; O2SAT 98; BMI 24.8
[2025-06-21 00:33] LABS: MANUAL DIFF FLAG NO
--- OUTSIDE RECORDS SUMMARY | 2025-06-21 00:34 | XMS_ITS | Clinical Summary ---
Author Organization [facility] ity Address [address] [place] [address] Care Team Providers Care Clinical Trial Coordinator Name Role Phone Unavailable Primary Care Provider [...]
[2025-06-21 00:35] LABS: Hematocrit 37.4 % (37.0-47.0); Hemoglobin 12.8 g/dl (12.0-16.0); Imm Gran Abs Auto 0.02 X10*3/uL (0.00-0.03); Imm Gran Pct Auto 0.2 % (0.0-0.4); Lymphocytes Absolute Auto 3.1 X10*3/uL (1.2-4.9); Mean Corpuscular HGB Conc 34.2 g/dl (31.0-35.0); Mean Corpuscular Hemoglobin 29.8 pg (27.0-33.0); Mean Corpuscular Volume 87.0 fL (80.0-98.0); NRBC Abs Auto 0.000 X10*3/uL (0.0-0.012); NRBC Pct Auto 0.0 /100WBC (0.0-0.2); Platelet Count 317 X10*3/uL (160-400); Red Blood Count 4.30 X10*6/uL (4.20-5.50); White Blood Count 9.4 X10*3/uL (4.8-10.8)
--- NOTE | 2025-06-21 00:50 | ED.BACK ---
HPI - Back Pain/Injury General Chief Complaint: Back Pain/Injury Stated Complaint: Back Pain Time Seen by Provider: 06/21/25 00:43 Source: patient and family ( parents) Mode of arrival: ambulatory Limitations: no limitations History of Present Illness ED Provider: DR. Starr HPI Narrative: 25-year-old female otherwise healthy with no past medical history presented with right flank pain that is started suddenly at 23:00 while patient was trying to go to bed, feels urgent to urinate, no dysuria, no frequency urination, no blood in the urine, pain is 10/10 radiates from the right lower back area to the right groin area, no fever, no chills, patient had 2 times vomiting and feel nauseous, declined having intra-abdominal surgery in the past, had normal bowel movement this morning, passing flatus normally. Related Data Home Medications ?Medication ?Instructions ?Recorded ?Confirmed albuterol sulfate 90 mcg/actuation 0 mcg inhalation 09/18/22 12/19/24 aerosol inhaler fexofenadine 180 mg tablet 180 mg PO DAILY 10/25/22 06/17/25 (Wendie Allergy) Previous Rx's ?Medication ?Instructions ?Recorded cholecalciferol (vitamin D3) 50 50 mcg PO DAILY 90 days #90 caps 11/03/24 mcg (2,000 unit) capsule multivitamin with iron 1 tab PO DAILY #90 tabs 11/03/24 fluticasone furoate 200 1 inh inhalation DAILY 30 days #1 12/23/24 mcg/actuation blister powder for ea inhalation (Arnuity Ellipta) albuterol sulfate 90 mcg/actuation 2 inh inhalation Q4-6H PRN 04/26/25 breath activated powder inhaler shortness of breath or wheezing #1 ea fluticasone furoate 100 1 inh inhalation DAILY asthma 30 06/17/25 mcg/actuation blister powder for days #30 ea inhalation (Arnuity Ellipta) hydrocodone 5 mg-acetaminophen 325 1 tab PO Q6H PRN severe pain 06/21/25 mg tablet (scale score 7-10) #10 tabs ondansetron 4 mg disintegrating 4 mg PO Q8H PRN nausea and 06/21/25 tablet vomiting #10 tabs tamsulosin 0.4 mg capsule 0.4 mg PO BEDTIME #7 caps 06/21/25 Allergies Allergy/AdvReac Type Severity Reaction Status Date / Time Seasonal Allergies Allergy Mild Unknown Verified 06/21/25 00:13 codeine AdvReac Mild Dizziness Verified 06/21/25 00:13 cats Allergy Mild itchy Uncoded 06/21/25 00:13 dogs Allergy Mild Unknown Uncoded 06/21/25 00:13 horses Allergy Mild Unknown Uncoded 06/21/25 00:13 tree pollen Allergy Mild seasonal Uncoded 06/21/25 00:13 allergies Review of Systems Review of Systems: All other systems are reviewed and are negative Constitutional: Reports as per HPI and Reports no additional constitutional complaints Eyes: Reports as per HPI and Reports no additional eye complaints Reports system reviewed and no additional complaints, except as documented Cardiovascular: Reports as per HPI and Reports no additional cardiovascular complaints Respiratory: Reports as per HPI and Reports no additional respiratory complaints Gastrointestinal: Reports as per HPI and Reports no additional gastrointestinal complaints Genitourinary: Reports no additional female genitourinary complaints Musculoskeletal: Reports no additional musculoskeletal complaints Skin/Breast: Reports system reviewed and no additional complaints, except as docu Psychiatric: Reports no additional psychiatric complaints Endocrine: Reports no additional endocrine complaints Hematologic/Lymphatic: Reports no additional hematologic/lymphatic complaints Allergic/Immunologic: Reports no additional allergic/immunologic complaints Reports system reviewed and no additional complaints, except as documented and Reports Abnormal speech present [facility] Past Medical History Medical History Numbness and tingling of lower extremity Elevated liver enzymes Seasonal allergies Surgical History [place] teeth extracted Family History Family History Father No problems noted. Mother No problems noted. Maternal Grandfather CAD (coronary artery disease) Social History Social History Household Members: Family Housing: House Are you a primary care team coordinator scheduler to a significant other at home: No Do you presently have visiting nurse or other home services: No Alcohol intake: current Alcohol intake frequency: holidays/special occasions only Patient Tobacco Use Status: Never used Tobacco Smoked in Last 30 Days: No e-Cigarette/Vaping Use: Never Used Use of substances other than those prescribed or required for medical reasons: No Advance Directives: No Advance Directives Information Provided: Yes Patient : No service: No Current occupational status: employed Current occupation: [employer] Current occupational exposures/hazards: No Sexual orientation: Straight/Heterosexual Gender identity: Female Cognitive needs: No Hearing needs: No Vision needs: No Physical Exam Vital Signs: Vital Signs: Last Vital Signs Temp 98.0 F 06/21/25 00:09 Pulse 86 06/21/25 00:09 Resp 17 06/21/25 02:00 BP 126/81 06/21/25 00:09 Pulse Ox 98 06/21/25 00:09 O2 Del Method Room Air 06/21/25 00:09 BMI result Body Mass Index 24.8 Vital signs have been reviewed and appear to be correct. Blood pressure elevated. Heart rate normal. Respiratory rate normal. Temperature normal. Oxygen saturation normal. Appearance: Alert. Oriented X3. In acute distress secondary to right flank pain. Head: Normal external exam. Normocephalic. Atraumatic. No Tamayo signs noted. No raccoon eyes noted Eyes: PERRLA. EOMI. Conjunctiva and sclera normal. Eyelids normal. ENT: TM's Normal. Pharynx normal. Uvula midline. Moist mucous membranes. No trismus noted. No drooling noted. No muffled voice noted. Neck: Normal inspection. Neck supple. FROM. No adenopathy. Thyroid Normal. No meningeal signs. No neck mass noted. CVS: Normal heart rate and rhythm. Heart sound normal. No murmurs noted. Pulses normal throughout. Respiratory: No respiratory distress. Painless inspiration. Breath sounds normal. No wheezes/rales/rhonchi noted. Chest nontender. No accessory muscle usage noted or decreased air movement noted. Abdomen: Soft and nontender. Bowel sounds normal in all 4 quadrants. No distention noted. No organomegaly noted. No visible injury noted. Back: Right CVA tenderness. Full range of motion noted. Skin: Skin warm and dry. Normal skin color. Normal skin turgor. No rashes/lesions/lacerations noted. Extremities: No lower extremity edema. Extremities exhibit normal range of motion. Extremities nontender. Neuro: Oriented X 3. Cranial nerve exam: II-XII are grossly intact No motor deficit. No sensory deficit. Reflexes normal. Course Reevaluation(s) Reevaluation #1: 25-year-old female came for evaluation of abrupt onset of right flank pain, history and exam are consistent with obstructive right ureteric stone, await for CT abdomen and pelvis, signed out to Dr. Tiwari to check the official reading of the CT and re-evaluate the patient and dispo accordingly. Time: 02:00 Reevaluation #2: CT shows evidence of right obstructive uropathy. 3 mm stone should pass. Given a dose of tamsulosin, Zofran and hydrocodone for pain. Discussed use of NSAIDs as well. Encouraged follow-up. Discharged home in stable condition. Time: 03:30 Medications Administered Discontinued Medications Generic Name Dose Route Start Last Admin Trade Name Freq PRN Reason Stop Dose Admin Lactated Ringer's 1,000 mls @ 999 mls/hr 06/21/25 01:00 06/21/25 02:38 Lr IV 06/21/25 02:00 Infused .Q1H1M ANILA Infusion Ketorolac Tromethamine 15 mg 06/21/25 00:49 06/21/25 01:04 Ketorolac Tromethamine 15 Mg/Ml Vial IVPUSH 06/21/25 00:50 15 mg ONCE ONE Administration Morphine Sulfate 2 mg 06/21/25 00:49 06/21/25 01:03 Morphine Sulfate 4 Mg/Ml Cartridge IVPUSH 06/21/25 00:50 2 mg ONCE ONE Administration Protocol Ondansetron HCl 4 mg 06/21/25 00:49 06/21/25 01:04 Ondansetron Hcl 4 Mg/2 Ml Vial IVPUSH 06/21/25 00:50 4 mg ONCE ONE Administration Medical Decision Making Differential Diagnosis Differential Diagnoses: The differential diagnosis associated with the presentation includes ( Right renal colic, obstructive uropathy, pancreatitis, cholelithiasis, electrolyte derangement, severe anemia, appendicitis.) Admission/Observation Consideration of admission/observation: Escalation of care including admission/observation considered Lab Data MDM Lab Attestation statement: I reviewed the patient's lab results. 06/21/25 00:29 06/21/25 00:29 Labs: Lab Results 06/21/25 06/21/25 Range/Units 00:29 01:14 WBC 9.4 (4.8-10.8) X10*3/uL RBC 4.30 (4.20-5.50) X10*6/uL Hgb 12.8 (12.0-16.0) g/dl Hct 37.4 (37.0-47.0) % MCV 87.0 (80.0-98.0) fL MCH 29.8 (27.0-33.0) pg MCHC 34.2 (31.0-35.0) g/dl RDW 12.5 (11.0-16.0) % Plt Count 317 (160-400) X10*3/uL MPV 8.2 L (9.4-12.3) fL Immature Gran % (Auto) 0.2 (0.0-0.4) % Neut % (Auto) 53.5 (45-73) % Lymph % (Auto) 33.1 (20-40) % Bucks % (Auto) 9.1 (2-11) % Eos % (Auto) 3.6 (0-4) % Baso % (Auto) 0.5 (0-2) % Lymph # (Auto) 3.1 (1.2-4.9) X10*3/uL Bucks # (Auto) 0.9 (0.1-1.2) X10*3/uL Eos # (Auto) 0.3 (0.0-0.4) X10*3/uL Baso # (Auto) 0.1 (0.0-0.2) X10*3/uL Abs Immat Gran (auto) 0.02 (0.00-0.03) X10*3/uL Absolute Neuts (auto) 5.0 (2.0-8.3) x10*3/uL Absolute Nucleated RBC 0.000 (0.0-0.012) X10*3/uL Nucleated RBC % (auto) 0.0 (0.0-0.2) /100WBC Sodium 139 (135-145) mmol/L Potassium 4.0 (3.3-5.1) mmol/L Chloride 106 (96-108) mmol/L Carbon Dioxide 24 (22-29) mmol/L Anion Gap 13 (12-20) BUN 14 (9-16) mg/dL Creatinine 0.82 (0.5-1.4) mg/dL Estim Creat Clear Calc 94.1 Estimated GFR > 60 Random Glucose 116 H (60-115) mg/dL Calcium 9.7 (8.4-10.2) mg/dL Total Bilirubin 0.2 (0.0-1.0) mg/dL AST 23 (5-31) U/L ALT 19 (0-31) U/L Alkaline Phosphatase 70 (39-117) U/L Total Protein 7.3 (6.5-8.0) g/dL Albumin 4.8 (3.5-5.0) g/dL Lipase 22 (8-78) U/L Beta HCG, Quant < 2 mIU/mL Urine Color Yellow Urine Appearance Clear Urine pH 5.5 (5.0-9.0) Ur Specific [place] 1.015 (1.005-1.025) Urine Protein Negative (Neg-Trace) mg/dL Urine Glucose (UA) Negative (Negative) mg/dL Urine Ketones Negative (Negative) mg/dL Urine Blood Moderate (2+) H (Negative) Urine Nitrite Negative (Negative) Ur Leukocyte Esterase Trace H (Negative) Urine RBC 11-20 H (0-2) /HPF Urine WBC 11-20 H (0-5) /HPF Ur Squamous Epith Cells 0-2 (0-2) /HPF Urine Bacteria None Seen (None Seen) Hyaline Casts 0-2 (0-2) /LPF Radiology Impression Radiologist Impression: CT abdomen and pelvis without contrast Comparison: None provided. Findings: No consolidation or effusion. The liver is enlarged. The liver appears normal in contour. The gallbladder and solid organs are otherwise within normal limits. No renal stones. No left hydronephrosis or left hydroureter. 3 mm obstructing calculus present at the right ureterovesicular junction with mild right hydroureter and mild right hydronephrosis. There is mild right perinephric fat stranding. No bowel obstruction, pneumoperitoneum, or pneumatosis. Mildly limited evaluation of the stomach related to gastric underdistention. Tiny, fat containing umbilical hernia present. Pelvic contents unremarkable. The bladder is minimally distended with fluid, limiting its evaluation. There is mild bladder wall thickening. Normal appendix. No acute fracture visualized. IMPRESSION: 3 mm obstructing calculus present at the right ureterovesicular junction with mild right hydroureter and mild right hydronephrosis. Mild bladder wall thickening. This is nonspecific and may be related to bladder underdistention. Mild cystitis may have a similar appearance. Hepatomegaly. Independent Historian Clinical information obtained from an independent historian. History obtained from or confirmed by: Parent Prescription Management I considered prescription management with: Pain Medication Discharge Plan Discharge Clinical Impression: Renal colic on right side, Acute unilateral obstructive uropathy Patient Disposition: Home, Self-Care Prescriptions: New hydrocodone-acetaminophen 5-325 mg tablet 1 tab PO Q6H PRN (Reason: severe pain (scale score 7-10)) Qty: 10 0RF Rx Instructions: Partial Fill upon patient request. tamsulosin 0.4 mg capsule 0.4 mg PO BEDTIME Qty: 7 0RF ondansetron 4 mg tablet,disintegrating 4 mg PO Q8H PRN (Reason: nausea and vomiting) Qty: 10 0RF No Action Arnuity Ellipta 200 mcg/actuation blister with device 1 inh inhalation DAILY 30 Days Qty: 1 3RF albuterol sulfate 90 mcg/actuation aerosol powdr breath activated 2 inh inhalation Q4-6H PRN (Reason: shortness of breath or wheezing) Qty: 1 0RF albuterol sulfate 90 mcg/actuation HFA aerosol inhaler 0 mcg inhalation fexofenadine [Wendie Allergy] 180 mg tablet 180 mg PO DAILY cholecalciferol (vitamin D3) 50 mcg (2,000 unit) capsule 50 mcg PO DAILY 90 Days Qty: 90 3RF multivitamin with iron Tablet 1 tab PO DAILY Qty: 90 0RF fluticasone furoate [Arnuity Ellipta] 100 mcg/actuation blister with device 1 inh inhalation DAILY 30 Days Qty: 30 4RF Referrals: [facility] [place]Provider Group, Urology] Clinical Impression: Acute unilateral obstructive uropathy Stand Alone Forms: Work/School Release Print Language: Sami
[2025-06-21 01:01] LABS: Lipase 22 U/L (8-78)
[2025-06-21 01:03] VITALS: RESP 20
[2025-06-21 01:10] LABS: Alanine Aminotransferase 19 U/L (0-31); Albumin Level 4.8 g/dL (3.5-5.0); Alkaline Phosphatase 70 U/L (39-117); Anion Gap 13 (12-20); Aspartate Amino Transferase 23 U/L (5-31); Blood Urea Nitrogen 14 mg/dL (9-16); Calcium 9.7 mg/dL (8.4-10.2); Carbon Dioxide 24 mmol/L (22-29); Chloride 106 mmol/L (96-108); Creatinine Clr Calc Pharmacy 94.1; Estimated Glomerular Filt Rate > 60; Potassium 4.0 mmol/L (3.3-5.1); Sodium 139 mmol/L (135-145); Total Protein 7.3 g/dL (6.5-8.0)
[2025-06-21] MEDS: Lactated Ringers 1,000 ML 999 ML IV (01:11)
[2025-06-21 01:36] LABS: Appearance Urine Clear; Glucose Urine UA Negative (Negative); PH 5.5 (5.0-9.0); Specific Gravity - Urine 1.015 (1.005-1.025); UMIC TRIGGER UACC YES
[2025-06-21 01:39] LABS: UACC Culture Trigger YES
[2025-06-21 01:40] VITALS: RESP 16
[2025-06-21 02:00] VITALS: RESP 17
[2025-06-21 03:54] VITALS: BP 105/52; PULSE 75; RESP 17; TEMP 36.6; O2SAT 97
== END 2025-06-21 03:56 | disposition home or self-care (01) ==
PROVIDERS: Emergency Medicine; Emergency Provider Emergency Medicine; PCP Nurse Practitioner Family
DX: N13.9 Obstructive and reflux uropathy, unspecified (principal); N23 Unspecified renal colic; R11.0 Nausea; Z79.899 Other long term (current) drug therapy
CPT/HCPCS: 36415; 74176; 80053; 81001; 83690; 84702; 85025; 87086; 96361; 96374; 96375; 99284; 99285; J1885; J2270; J2405; J7120

== ENCOUNTER → 2025-06-21 00:48 | Outpatient (BNV) | payer OTHER, SELFPAY | PROVIDERS: Emergency Provider Emergency Medicine; PCP Nurse Practitioner Family; Visit Provider Radiology Diagnostic Radiology | DX: N13.2 Hydronephrosis with renal and ureteral calculous obstruction (principal); R16.0 Hepatomegaly, not elsewhere classified | CPT/HCPCS: 74176 ==

== ENCOUNTER 2025-07-21 08:36 | Outpatient (AMB) | payer OTHER, SELFPAY ==
--- OUTSIDE RECORDS SUMMARY | 2025-07-21 08:50 | XMS_ITS | Clinical Summary ---
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
--- OUTSIDE RECORDS SUMMARY | 2025-07-21 08:50 | XMS_ITS | Data Portability ---
Author Organization [place] - [facility], [facility] Address [address] [place] [address] Assessment Encounter Date Assessment Date Assessment LastModified [...] will give referral today. Needs PPD for ACCT EXEC course Will get bexero #1 today Flu [...] completed for season. On OCP, follows w violin teacher. Gets STI testing yearly though violin teacher, will defer today. Lactose intolerance - avoids milk, will take calcium supplement Not available 09/09/2020 21:22:01 Plan of Treatment Reminders Order Date Submit Date Provider Last Modified By Organization Details Last Modified Time Details Appointments None recorded. Lab PPD (purified protein derivative) , skin test 2018 [facility], [address] [place] [address], [id number], 9 10:06:23 lipid panel, blood 2018 Count includes the [facility], [address] [place] [address], [id number], 9 11:06:11 rapid strep group A, throat 2018 019 [facility], [address] [place] [address], [id number], 9 09:49:42 culture, throat 2018 [facility], [address] [place] [address], [id number], 9 09:49:42 Referral internal medicine referral 2020 [...] BILAT. GOOD CAP RETURN. 2017 [facility], [address], [facility] [address], [place], [address], 8 16:33:08 Medication Orders Tubersol 5 tub. unit/0.1 mL intradermal injection solution 2018 [email or web address] Not available 14:23:42 amoxicillin 500 mg capsule 2018 [email or web address] 0 [id number], [address] [place], [address], 10:17:23 Patient TargetsNo targets recorded. Patient Instructions Encounter Date Encounter Id Patient Instructions Last Modified By Organization Details Last Modified Time 06/07/2018 [id number] WILL REF TO ER T O R/O DVT. IF NEG, WILL USE HEAT/ALLEVE 330 BID FOR 5 DAYS/GENTLE MASSAGE/CRUTCHES WITH PROGRESSIVE WT BEARING. [email or web address] Not available 06/07/2018 15:26:58 09/18/2018 [id number] SX CARE [email or web address] Not available 09/18 09:49:49 07/25/2019 [id number] program - 5 fruits & veggies Not available 07/25/2019 10:49:38 [id number] program - 1 hour of exercise Not available 07/25/2019 10:49:38 patient health questionnaire depression assessment* Not available 07/25/2019 10:49:38 immunization: wh at you need to know Not available 07/25/2019 10:49:38 09/09/2020 [id number] program - 5 fruits & veggies Not [...] * PHQ-9 negati ve Not Available [facility] [address] [place] [address], [phone], 09/08/2020 16:02:50 07/25/20 19 07/25/2019 patie nt healt h quest ionna angelia depre ssion asses sment * PHQ-9 negati ve Not Available [facility] [address] [place] [address], [phone], 07/25/2019 08:10:01 09/18/19 19 09/18/2018 cultu re, throa t Result 24 HR negati ve Not Available [facility] [address] [place] [address], [id number], 09/18/2018 09:34:32 09/18/19 19 09/18/2018 cultu re, throa t Result 48 HR negati ve Not Available [facility] [address] [place] [address], [id number], 09/18/2018 09:34:32 09/18/19 19 09/18/2018 rapid strep group A, throa t Rapid Strep negati ve Not Available [facility] [address] [place] [address], [phone], 09/18/2018 09:34:31 07/27/20 19 07/27/2019 PPD (joseph fied prote in deriv ative ), skin test Result negati ve Not Available [facility] [address] [place] [address], [phone], 07/25/2019 08:18:10 07/27/20 19 07/27/2019 PPD (joseph fied prote in deriv ative ), skin test Induration mm 0mm Zane d , Read by Arnold judge, RN Not Available [facility] [address] [place] [address], [phone], 07/25/2019 08:18:10 01/21/20 21 01/20/2021 PPD (joseph fied prote in deriv ative ), skin test Result negati ve Not Available [facility] [address] [place], [address], 01/18/2021 10:32:51 01/21/20 21 01/20/2021 PPD (joseph fied prote in deriv ative ), skin test Induration mm 0 Not Available [facility] [address] [place] [address], [phone], 01/18/2021 10:32:51 06/07/20 18 US, lower leg No observ ation record ed. [email or web address] [facility] [address], [place], [address], 06/07/2018 17:52:11 06/07/20 18 06/07/2018 US, lower leg No observ ation record ed. [email or web address] Not Available 2017 17:52:37 Result Notes None recorded. Problems Name Problem SNOMED Code Status Onset Date Resolution Date Notes Provider Name and Address Organization Details Recorded Time Anxiety 49410931 Active Alyx damon [place] [facility] 5 15:33:21 Vomiting 467486470 Completed 04/27/2014 Alyx damon MA [facility] 4 14:29:21 Pain in throat 064024853 Completed 07/10/2011 Not Available [facility] 3 03:03:10 Viral disease 13944745 Completed 09/29/2011 Not Available [facility] 3 03:01:20 Viral disease 68891205 Completed 07/10/2011 Not Available [facility] 3 03:01:20 Streptococ janie sore throat 04658898 Completed 07/10/2011 Not Available [facility] 3 03:01:20 Acute conjunctiv itis 35138291 Completed 200607/10/2011 Not Available [facility] 3 03:01:20 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 Medical [...] 09/09/2020 161.92 cm 23.5 kg/m2 68 % 25245.8 4 g 120/60 mm[Hg] Sandy Perales [facility] 14:22:58 Date Recorded Body weight Body temperature Provider N veronika and Address Organization Details Last Updated DateTime 09/18/2018 28073.47 g 98.2 [degF] Dottie Martin L.P.N [facility] 09/18/2018 09:30:39 Date Recorded Body weight Provider Name an d Address Organization Details Last Updated DateTime 02/26/2018 41991.97 g Carol Fisher L.P.N. [facility] 02/26/2018 11:35:13 Date Recorded Body height Body mass index (BMI) [Percentile] Per age and sex Body mass index (BMI) Body weight Systolic And Diastolic Provider Name and Address Organization Details Last Updated DateTime 07/25/2019 161.92 cm 41 % 20.9 kg/m2 87695.6 8 g 122/70 mm[Hg] Janee Flood [facility] 9 10:24:50 Social History Question Answer Notes LastModified by Organizat ion Details LastModified Time Tobacco Smoking Status Never Smoker Calos Garcia, [facility] 04/27/2014 14:09:40 Have There Been Any [...] Information not available 06/03/2011 Year In School [facility] [email or web address] Information not available 07/25/2019 Parent's Name GINA [...] and Address Organization Details Recorded Time Novel [id number], nasal 9 completed Not Available [facility] 08/16/2019 02:34:48 Hib, unspecified formulation 1 completed Not Available [facility] 06/03/2011 03:19:20 IPV 5 completed Not Available [facility] 06/03/2011 03:18:24 DTaP, unspecified formulation 1 completed Not Available [facility] 06/03/2011 03:18:24 pneumococcal conjugate PCV 7 0 completed Not Available [facility] 06/03/2011 03:18:24 DTaP, unspecified formulation 1 completed Not Available [facility] 06/03/2011 03:19:20 pneumococcal conjugate PCV 7 1 completed Not Available [facility] 06/03/2011 03:18:24 DTaP, unspecified formulation 0 completed Not Available [facility] 06/03/2011 03:18:24 Hep B, unspecified formulation 1 completed Not Available [facility] 06/03/2011 03:18:24 Hib, unspecified formulation 2 completed Not Available [facility] 06/03/2011 03:18:24 IPV 2 completed Not Available [facility] 06/03/2011 03:19:20 DTaP, unspecified formulation 2 completed Not Available [facility] 06/03/2011 03:18:24 MMR 4 completed Not Available [facility] 06/03/2011 03:18:24 Hib, unspecified formulation 1 completed Not Available [facility] 06/03/2011 03:18:24 Hep B, unspecified formulation 0 completed Not Available [facility] 06/03/2011 03:19:20 Hep B, unspecified formulation 0 completed Not Available [facility] 06/03/2011 03:18:24 pneumococcal conjugate PCV 7 1 completed Not Available [facility] 06/03/2011 03:18:24 MMR 2 completed Not Available [facility] 06/03/2011 03:18:24 IPV 0 completed Not Available [facility] 06/03/2011 03:19:20 pneumococcal conjugate PCV 7 1 completed Not Available [facility] 06/03/2011 03:18:24 Hib, unspecified formulation 0 completed Not Available [facility] 06/03/2011 03:18:24 IPV 1 completed Not Available [facility] 06/03/2011 03:18:24 Influenza, split virus, trivalent, preservative 1 completed Not Available [facility] 08/16/2019 02:35:18 meningococcal MCV4P 1 completed Not Available [facility] 08/16/2019 02:33:28 Tdap 1 completed Not Available [facility] 08/16/2019 02:33:37 HPV, quadrivalent 1 completed Not Available [facility] 08/16/2019 02:33:59 Influenza, split virus, trivalent, preservative 9 completed Not Available [facility] 08/16/2019 02:34:44 Influenza, live, quadrivalent, intranasal 3 completed Not Available [facility] 08/16/2019 02:35:32 HPV, quadrivalent 3 completed Not Available [facility] 08/16/2019 02:34:09 influenza, unspecified formulation 8 completed Not Available [facility] 06/03/2011 03:16:44 influenza, unspecified formulation 8 completed Not Available [facility] 06/03/2011 03:16:44 Influenza, live, quadrivalent, intranasal 4 completed Not Available [facility] 08/16/2019 02:35:49 HPV, quadrivalent 4 completed Not Available [facility] 08/16/2019 02:34:14 Influenza, live, quadrivalent, intranasal 5 completed Not Available [facility] 08/16/2019 02:36:17 influenza, unspecified formulation 7 completed Calos Blackwood [facility] 07/09/2017 13:59:34 meningococcal MCV4P 6 completed Not Available [facility] 08/16/2019 02:37:13 Influenza, split virus, quadrivalent, PF 6 completed Not Available [facility] 08/16/2019 02:37:11 Td (adult), 5 Lf tetanus toxoid, preservative free, adsorbed 7 completed Not Available [facility] 08/16/2019 02:38:29 Influenza, split virus, quadrivalent, preservative 9 completed Calos Garcia [facility] 07/02/2019 12:23:16 Influenza, split virus, quadrivalent, preservative 0 completed Calos Garcia [facility] 05/03/2020 08:58:50 meningococcal B, OMV 9 completed Not Available [facility] 08/16/2019 02:39:39 meningococcal B, OMV 0 completed Meghann Mckinney [facility] 09/03/2019 11:14:45 Hep A, adult 1 completed Sandy damon [place] - [facility] 09/09/2020 15:03:53 DTaP, unspecified formulation 5 completed Not Available [facility] 06/03/2011 03:17:07 varicella 1 completed Not Available [facility] 06/03/2011 03:17:07 influenza, unspecified formulation 7 completed Not Available [facility] 06/03/2011 03:16:44 varicella 7 completed Not Available [facility] 06/03/2011 03:16:44 Influenza, split virus, trivalent, preservative 0 completed Not Available [facility] 08/16/2019 02:35:07 Past Encounters Encounter ID Performer Location Encounter Start Date Encounter Closed Date Diagnosis/Indication Diagnosis SNOMED-CT Code Diagnosis ICD10 Code Diagnosis IMO Codes Diagnosis Note [id number] Roland Wells MD [place] [address] 05/27/2007 14:41:47 05/27/2007 15:32:17 [id number] Roland Wells MD [place] [address] 06/28/2007 09:43:21 06/28/2007 11:29:14 [id number] Roland Wells MD [place] [address] 2 07/04/2007 16:13:29 07/04/2007 16:55:27 [id number] Alyx Santo PNP, LENS HARDENER, PhD [place] [address] 10/28/2007 17:04:44 10/28/2007 17:06:26 [id number] Roland Wells MD [place] [address] 06/04/2008 14:44:20 06/04/2008 16:01:20 [id number] KONRAD [place] [address] 2 07/02/2008 15:13:36 07/02/2008 15:23:21 [id number] Roland Wells MD [place] [address] 07/31/2008 12:04:16 07/31/2008 12:31:00 [id number] Sharno Richter MD PVP [place] [address] 08/28/2008 15:12:48 08/28/2008 16:24:20 [id number] Roland Wells MD PVP [place] [address] 2 01/25/2009 09:20:02 01/25/2009 10:27:40 [id number] Roland Wells MD PVP [place] [address] 2 06/30/2009 15:12:17 06/30/2009 16:20:43 [id number] Tiana Shook MD PVP [place] [address] 2 09/30/2009 16:34:41 09/30/2009 17:36:03 [id number] Roland Wells MD PVP [place] [address] 2 06/16/2010 15:05:20 06/16/2010 17:05:14 [id number] Nicol Ham MD PVP [address] [address] 09/24/2010 10:53:36 09/24/2010 11:33:57 [id number] Donita Kebede MD PVP [place] [address] 2 10/27/2010 13:44:37 10/27/2010 15:01:46 [id number] Tiana Shook MD PVP [place] [id number] 11/08/2010 08:57:08 11/08/2010 09:45:36 [id number] Roland Wells MD PVP [place] [address] 2 07/10/2011 15:55:46 07/10/2011 17:49:29 [id number] Roland Wells MD PVP [place] [address] 2 07/27/2011 13:21:44 07/27/2011 14:19:31 [id number] Roland Saenz MD [facility] [address] [facility] [place] [address] 09/17/2011 10:46:21 09/17/2011 11:34:15 [id number] Roland Wells MD [place] [address] 09/29/2011 13:23:54 09/29/2011 14:26:34 [id number] Roland Wells MD [place] [address] 2 04/25/2013 15:07:19 04/25/2013 16:58:43 Well child 800612985 Developmen chula academic disorder 3205006 Anxiety 18452654 [id number] Roland Wells MD [place] [address] 03/27/2014 10:07:08 03/27/2014 13:36:16 Anxiety 31149571 [facility] 212918890 [id number] Alyx GRECO, LENS HARDENER, PhD [place] [address] 2 04/27/2014 14:01:58 04/27/2014 17:32:39 Well child 816276076 Anxiety 50608465 [id number] Alyx GRECO, LENS HARDENER, PhD [place] [address] 2 03/29/2015 14:50:41 03/29/2015 17:13:12 Anxiety 58390745 [id number] Alyx GRECO, LENS HARDENER, PhD [place] [address] 2 05/03/2015 16:28:54 05/03/2015 17:18:53 Influenza vaccine needed 8977095986 106 Z23 Anxiety 04882615 F41.9 [id number] Alyx GRECO, LENS HARDENER, PhD [place] [address] 2 05/24/2015 14:30:17 05/24/2015 17:31:31 Well child 835080602 Z00.129 Anxiety 37808183 F41.9 much improved with hypnosis [id number] Alyx GRECO, LENS HARDENER, PhD [place] [address] 2 07/06/2015 14:50:24 07/06/2015 16:47:40 Anxiety 64939651 F41.9 much improved with hypnosis [id number] Alyx GRECO, LENS HARDENER, PhD [place] [address] 2 01/25/2016 16:25:19 01/25/2016 17:32:25 Anxiety 76629567 F41.9 [id number] Alyx GRECO, LENS HARDENER, PhD [place] [address] 2 02/21/2016 14:50:27 02/21/2016 16:33:54 Anxiety 65278477 F41.9 [id number] Alyx GRECO, LENS HARDENER, PhD [place] [address] 2 06/13/2016 14:38:48 06/13/2016 16:07:13 Active or passive immunization 120038290 Z23 Well child 919581794 Z00 .129 [id number] Gavino Presley MD [place] [address] 2 11/20/2016 10:20:43 11/20/2016 12:39:31 Cough 45034236 R05 2 weeks of cough. Not responding to azithromyc in as prescribed by urgent care. Suspect viral illness with lingering bronchospa stic cough.Will DC hydromorph one, do trial of albuterol to see if this provides symptomati c relief.Rec heck if no improvemen t by the end of the week. [id number] Alyx GRECO APRN, PhD [place] [address] 2 07/09/2017 13:53:33 07/10/2017 08:20:40 Well child 041522649 Z00.129 Unintentio nal weight loss 653626273 R63.4 Anxiety 90176700 F41.9 much improved since hypnosis - uses strategies that she learned [id number] Tiana Shook MD [place] [address] 10/04/2017 11:03:23 10/04/2017 12:05:30 Concussion injury of brain 347571798 S06.0X0A [id number] Tiana Shook MD [place] [id number] 12/20/2017 16:21:23 12/21/2017 13:22:22 Abdominal pain 49396061 R10.9 [id number] Tiana Shook MD [place] [address] 02/26/2018 11:26:46 02/26/2018 12:12:57 Abdominal pain 01116297 R10.9 [id number] Roland Wells MD [place] [address] 06/07/2018 14:17:59 06/07/2018 15:48:36 Muscle pain 83854709 M79.10 Pain in ri ght lower limb 386046346 M79.604 [id number] Roland Wells MD [place] [address] 09/18/2018 09:26:29 09/18/2018 09:54:04 Acute pharyngitis 505692427 J02.9 Acute fron chula sinusitis 42179224 J01.10 [id number] Cynthia Phillips MD [place] [address] 07/25/2019 10:00:57 07/25/2019 13:04:21 Active or passive immunization 703985770 Z23 Adult heal th examination 205580229 Z00.00 Normal bod y mass index 10154179 Z68.20 Tuberculos is screening 253282994 Z11.1 Acquired l actase deficiency 54207636 E73.1 [id number] Cynthia Phillips MD [place] [address] 09/09/2020 14:16:53 09/10/2020 08:12:56 Diet education 50874856 Z71.3 Exercises education, guidance, and counseling 841382255 Z71.82 Normal bod y mass index 35948449 Z68.23 Adult heal th examination 749357415 Z00.00 Active or passive immunization 925721248 Z23 Health Concerns Section Related Observation LastModified by Organization Detai ls LastModified Time None Recorded Concern Status LastModified by Organization Details LastModified Time None Recorded Advance Directives Directive None Recorded Payers Insurance Date Sequence Insurance Name Policy Number Policy Rose Covered Member ID Rose Member ID Guarantor Name 01/14/2021 1 [place] [id number] Sachi Parmar Jr [id number] Sachi Parmar 09/23/2020 1 [place] PREFERRED [place]O) [id number] Sachi Parmar Jr [id number] Sachi Parmar Notes Date Note Type [...] noted in the HPI Tiana Shook MD [address] [place] [address], , [facility] 02/26/2018 12:03:09 06/07/2018 text/html RS [...] SHARP WITH CERTAIN MOVEMENT. Roland Wells MD [address] [place] [address], , [facility] 06/07/2018 15:33:33 09/18/2018 text/html RS [...] THE PAST 4-5 DAYS. Roland Wells MD [address] [place] [address], [phone], [facility] 09/18/2018 09:50:09 07/25/2019 text/html pt complains of experiencing diarrhea when consuming milkNo issues with cheese, doesnt really eat yogurtSometimes issues with ice creamdrinking almond milk CYNTHIA damon, [facility] 07/25/2019 12:34:50 OBGyn Episode No OBEpisode recorded.
--- NOTE | 2025-07-21 08:58 | MHC.OFFVIS ---
Intake Visit Reasons: kidney stone/SET UA Intake Note: New Patient is present for Kidney stones Urology Rx:Tamsulosin Blood Thinners:none NKDA Imaging completed: Abd Pelvis CT 06/21/25 Ice Cream Maker Required: No Accompanied by: Self / Same As Patient Allergies Seasonal Allergies Allergy (Mild, Verified 07/21/25 08:59) Unknown codeine Adverse Reaction (Mild, Verified 07/21/25 08:59) Dizziness cats Allergy (Mild, Uncoded 06/21/25 00:13) itchy dogs Allergy (Mild, Uncoded 06/21/25 00:13) Unknown horses Allergy (Mild, Uncoded 06/21/25 00:13) Unknown tree pollen Allergy (Mild, Uncoded 06/21/25 00:13) seasonal allergies HPI Comments Details: Nolvia is a pleasant female. She is a patient of Dr. Rosado. She is seen for the following urologic conditions. - nephrolithiasis Nephrolithiasis Single episode Right-sided flank pain CT scan 6 mm distal right ureteric stone with proximal hydro nephrosis No family history Has been drinking almond milk since lactose intolerant Recommend a 80 oz water, was announced lemon juice [facility] Medical History Numbness and tingling of lower extremity Elevated liver enzymes Seasonal allergies Surgical History [place] teeth extracted Family History Father No problems noted. Mother No problems noted. Maternal Grandfather CAD (coronary artery disease) Social History Household Members: Family Both parents involved: Yes Caregiver staying overnight: No Housing: House Are you a primary career professional to a significant other at home: No Do you presently have visiting nurse or other home services: No 75 years or older and lives alone: No Alcohol intake: current Alcohol intake frequency: holidays/special occasions only Patient Tobacco Use Status: Never used Tobacco e-Cigarette/Vaping Use: Never Used service: No Current occupational status: employed Current occupation: [employer] Current occupational exposures/hazards: No Sexual orientation: Straight/Heterosexual Gender identity: Female Cognitive needs: No Hearing needs: No Vision needs: No Review of Systems Const Reports as per HPI and Reports no additional complaints Card Reports as per HPI and Reports no additional complaints Resp Reports as per HPI and Reports no additional complaints GI Reports as per HPI and Reports no additional complaints Reports as per HPI and Denies change in libido Musc Reports no additional complaints and Reports as per HPI Neuro Reports no additional complaints and Reports as per HPI Psych Denies change in libido Endo Denies change in libido Physical Exam Const General: cooperative, healthy appearing, comfortable and no acute distress Orientation/consciousness: patient oriented x3 HEENT Face and sinus: Yes normal facial exam Mouth: moist mucous membranes Neck Neck: Yes normal visual inspection, Yes full ROM and Yes trachea midline Chest Chest palpation & inspection: normal inspection of the chest Resp Effort & Inspection: normal respiratory effort, able to speak in complete sentences and no respiratory distress GI Inspection: Yes normal to inspection Back/Spine/Pelvis Cervical Spine: normal cervical lordosis Thoracic/Lumbar Spine: thoracic and lumbar spine normal to inspection Skin General skin exam: no rashes or lesions noted Neuro General: patient oriented x3, tone normal and moves all extremities Extrem General: Yes normal to inspection and Yes capillary refill normal Results AMB Urinalysis, Automated UA Leukoctes 0 Alfredo/uL Last Edit by Regina Linares [facility] on 07/21/25 09:14 UA Nitrite Negative Last Edit by Regina Linares [facility] on 07/21/25 09:14 UA Urobilinogen 0.2 mg/dL Last Edit by Regina Linares [facility] on 07/21/25 09:14 UA Protein 0 mg/dL Last Edit by Regina Linares [facility] on 07/21/25 09:14 UA pH 6.0 Last Edit by Regina Linares [facility] on 07/21/25 09:14 UA Blood 0 Rolando/uL Last Edit by Reginamariano Linares [facility] on 07/21/25 09:14 UA Specific [place] 1.020 Last Edit by Regina Linares [facility] on 07/21/25 09:14 UA Ketone Negative Last Edit by Regina Linares [facility] on 07/21/25 09:14 UA Bilirubin 0 mg/dL Last Edit by Regina Linares [facility] on 07/21/25 09:14 UA Glucose 0 mg/dL Last Edit by KAM Garcia on 07/21/25 09:14 Results Reviewed Results Reviewed: Laboratory Last Values Urine pH (Auto) 6.0 07/21/25 09:13 Specific [place] (Auto) 1.020 07/21/25 09:13 Urine Protein (Auto) 0 mg/dL 07/21/25 09:13 Glucose (UA)(Auto) 0 mg/dL 07/21/25 09:13 Urine Ketones (Auto) Negative 07/21/25 09:13 Urine Blood (Auto) 0 Rolando/uL 07/21/25 09:13 Urine Nitrite (Auto) Negative 07/21/25 09:13 Urine Bilirubin (Auto) 0 mg/dL 07/21/25 09:13 Urine Urobilinogen (Auto) 0.2 mg/dL 07/21/25 09:13 Leukocyte Esterase (Auto) 0 Alfredo/uL 07/21/25 09:13 Assessment & Plan Assessment & Plan (1) Nephrolithiasis: Code(s): N20.0 - Calculus of kidney Category: Medical Plan Six-month follow-up renal ultrasound Orders: Orders US renal BI 6 Months N20.0 - Calculus of kidney AMB Urinalysis Automated Today N13.8 - Other obstructive and reflux uropathy, N40.1 - Benign prostatic hyperplasia with lower urinary tract symptoms Patient Instructions: This note is constructed using voice recognition software. While every effort has been made to ensure accuracy starch crab errors may have been included. Imaging studies, laboratory and physical exam results were discussed and reviewed in detail. No major barriers to patient understanding were identified. An opportunity to ask questions regarding the treatment plan was provided. All questions were answered. The patient expressed understanding and agreement with the above treatment plan. The patient is aware they should contact our office by phone for worsening of their current condition or the appearance of new urologic symptoms. Compliance is encouraged with any medications and followup testing that is ordered. It is a privilege to participate in the urologic care of your patient. If you have any questions or concerns regarding treatment for the above conditions, or other urologic issues, please do not hesitate to contact me. The office telephone contact is [phone]. Sincerely, Dr Rico Jimenez MD, EMMA [facility] - Urology Compassionate Specialist Care for the Genitourinary System Coding Level of Care Code New Pt Level 3 (97278) Diagnoses Nephrolithiasis N20.0
== END 2025-07-21 09:37 | disposition home or self-care (01) ==
LOC: HO.HUSH 08:37
PROVIDERS: PCP Nurse Practitioner Family; Visit Provider Urology
DX: N40.1 Benign prostatic hyperplasia with lower urinary tract symptoms (principal); N13.8 Other obstructive and reflux uropathy; N20.0 Calculus of kidney
CPT/HCPCS: 99203

== ENCOUNTER → 2025-07-21 08:36 | Outpatient (BNVA) | payer OTHER, SELFPAY | PROVIDERS: PCP Nurse Practitioner Family; Visit Provider Urology | DX: N20.0 Calculus of kidney (principal) | CPT/HCPCS: 81003 ==